=== PATIENT | male | born 1945 | race Caucasian/White ===

== ENCOUNTER 2017-02-26 15:49 | Observation (INO) ==
[2017-02-26] MEDS ORDERED: Ondansetron ODT 4 MG TAB.RAPDIS SL ONE (17:08)
--- NOTE | 2017-02-26 17:39 | Emergency Department Note ---
Disposition Clinical Impression: Generalized weakness Lumbar pain Qualifiers: Chronicity: chronic Back pain laterality: unspecified Sciatica presence: unspecified whether sciatica present Qualified Code(s): M54.5 - Low back pain; G89.29 - Other chronic pain Disposition: Admitted As Inpatient Condition: Good Referrals: Mary Daniels MD [Primary Care Provider] - Forms: ED Satisfaction Letter Time of Disposition: 20:02 Back Pain HPI - General Chief Complaint: ED Back Pain/Injury Stated Complaint: back pain Time Seen by Provider: 02/26/17 15:51 Source: patient, family (Sun), EMS Limitations: no limitations Nursing Notes Reviewed: Yes Vital Signs Reviewed: Yes - History of Present Illness HPI Narrative: 71-year-old obese male with history of chronic back pain presents to the ED via EMS for low back pain. Patient denies any injury or trauma to the area. He was at his primary care physician's office Dr. Daniels today for a regular check up. Around [address] to his family physician's office he began experiencing lower back pain when he sat in the car seat. He lives at home with his and states this may be the first time he left the house in a year. His son lives in [place] and came to pick him up. Patient reports while he was waiting in the waiting room pain intensified. EMS was called and he presents here. States when they placed him supine his pain was less intense. Pain was so severe he reports nausea and an episode of nonbloody emesis. Denies any abdominal pain. Reports a history of a umbilical hernia. Patient denies any saddle anesthesia, leg weakness, bowel or bladder incontinence. He denies any fever, cough, chest pain, shortness of breath or abdominal pain. tie worker Mayra is at bedside evaluating the patient, states she can have him placed in a penitentiary facility by tomorrow and does not require a 3 days hospital admission. On physical exam he has mild tenderness to the lower lumbar region. No signs of pressure ulcer. Lower extremities equal strength and sensation. Will get a CT of the lumbar spine and some basic labs. Patients currently requesting medications for his reflux as well as nausea medication. - Related Data Home Medications Medication Instructions Recorded Confirmed Albuterol Neb [Proventil Neb] 2.5 mg IH TID PRN 02/26/17 02/26/17 Albuterol Sulfate [Ventolin Hfa] 2 puff IH Q4H PRN 02/26/17 02/26/17 Atenolol [Tenormin] 50 mg PO BID 02/26/17 02/26/17 Budesonide Neb [Pulmicort Neb] 0.5 mg IH BID 02/26/17 02/26/17 Clotrimazole 1% CRM [Lotrimin 1%] 1 appl TP BID 02/26/17 02/26/17 Enalapril/Hydrochlorothiazide 1 each PO BID 02/26/17 02/26/17 [Vaseretic 10-25 mg Tablet] Formoterol Fumarate [Perforomist] 20 mcg IH BID 02/26/17 02/26/17 Hydrocortisone 2.5% CREAM [Cortaid] 1 appl TP BID 02/26/17 02/26/17 Metformin HCl [Metformin HCl ER] 1,000 mg PO BID 02/26/17 02/26/17 Simvastatin [Zocor] 40 mg PO HS 02/26/17 02/26/17 Allergies Allergy/AdvReac Type Severity Reaction Status Date / Time No Known Allergies Allergy Verified 01/03/16 14:32 All systems ED: reviewed and negative except as stated. Review of Systems: As Per HPI Constitutional: Denies: fever, chills Cardiovascular: Denies: chest pain Respiratory: Denies: cough, dyspnea Gastrointestinal: Reports: nausea, vomiting. Denies: abdominal pain Genitourinary: Denies: urgency, dysuria Musculoskeletal: Reports: back pain. Denies: neck pain Integumentary: Denies: rash, abrasion Neurological: Denies: headache Past Medical History - Past Medical History Attestation: Yes The following information was validated with the patient. Source: patient Medical history: Reports: asthma, diabetes Psychiatric history: Reports: no psych history - Social History Smoking Status: Former smoker Smokeless Tobacco Status: Yes Alcohol use: Reports: none Drug use: Reports: none Physical Exam - General Limitations: no limitations General appearance: alert, in no apparent distress, obese - Head Head exam: atraumatic - Eye Eye exam: Present: normal appearance - ENT ENT exam: normal exam - Neck Neck exam: Present: normal inspection - Chest Chest inspection: Present: normal inspection, symmetric chest wall rise. Absent : tenderness - Respiratory Respiratory exam: Present: normal lung sounds bilaterally, wheezes. Absent: respiratory distress - Cardiovascular Cardiovascular exam: Present: regular rate, normal rhythm, normal heart sounds - Abdominal Exam Abdominal exam: Present: soft (obese), Non-Tender, normal bowel sounds, hernia ( umbilical, reducible). Absent: tenderness, distention, guarding, rebound, rigidity - Extremities Exam Extremities exam: Present: other (stasis dermatitis to lower extremities) - Back Exam Back exam: Present: normal inspection, paraspinal tenderness, vertebral tenderness (lower lumbar), other (no pressure ulcer) - Neurological Exam Neurological exam: Present: alert, oriented X3 - Expanded Neurological Exam Patient oriented to: Present: person, place, time Motor strength - LUE: 5/5 Motor strength - RUE: 5/5 Motor strength - LLE: 5/5 Motor strength - RLE: 5/5 Course - Reevaluation(s) Reevaluation #1: Patient is currently comfortable. On exam of his back he is not reporting any discomfort. Whenever I ask him to sit up his pain is exacerbated. Laying down seems to be positioned disease. Awaiting imaging of CT lumbar spine. Review of Economic Development Specialist Note ED SW consult per request of nursing. Pt appears alert and oriented with his son bedside. The pt reports that he is no longer able to walk. He states his is also in poor health but she is able to ambulate. The also has a friend who assists her in taking her to doctor appointments. The 's granddaughter, Sadaf, whom the pt and raised, does pitch in and helps with housekeeping chores. Pt's son resides in [place] and also has health issues, currently sitting in a wheel chair due to spina bifida. Pt is aware that he cannot return home this evening, in this condition, with limited support available. Pt states that he is agreeable to a rehab placement to address his need for PT with the goal of returning home as soon as he can safely ambulate. Pt's first choice is [facility] ([facility] facility). Pt's second choice is [facility]. Pt has [employer] insurance so does not require a 3 night stay prior to placement. With pt's permission, SW attempted to contact the yet no answer on the phone. Time: 18:12 Reevaluation #2: Review of his preadmission labs reveals a leukocytosis that appears chronic from the year ago. Patients afebrile. Shows a low sodium level and chloride. Patient was given 1 liter of normal saline. Chest x-ray shows some blunting of the left [place] phrenic angle appears consistent with his prior imaging a year ago. Patient will be a social admission for rehab placement likely by tomorrow. I have attached the note from the social media intern from the ED on [facility]. Patient is agreeable to placement. Impression is back pain and generalized weakness. Time: 20:03 - Consultations Consultation #1: Spoke with on-call hospitalist lanre Dunn to admit for social admission for rehab placement with weakness and low back pain. No further orders at this time Time: 20:03 Vital Signs Temperature 98.6 F 02/26/17 15:50 Pulse Rate 105 02/26/17 15:50 Respiratory Rate 18 02/26/17 15:50 Blood Pressure 100/76 02/26/17 15:50 O2 Sat by Pulse Oximetry 94 02/26/17 15:50 Temperature 98.6 F 02/26/17 15:50 Pulse Rate 76 02/26/17 19:47 Respiratory Rate 14 02/26/17 19:47 Blood Pressure 120/64 02/26/17 19:47 O2 Sat by Pulse Oximetry 95 02/26/17 19:47 Oxygen Delivery Oxygen Delivery Nasal Cannula Back Pain/Injury - Medical Records Medical records reviewed: Yes I reviewed the patient's medical records. - Lab Data Lab results reviewed: Yes I reviewed the patient's lab results. Result diagrams: 02/26/17 18:29 02/26/17 18:29 Lab Results 02/26/17 02/26/17 Range/Units 18:29 18:29 WBC 15.0 H (4.3-11.1) K/mcL RBC 4.82 (4.19-5.50) M/mcL Hgb 13.9 (12.9-16.9) g/dL Hct 42.1 (37.5-50.1) % MCV 87.3 (83.0-100.0) fL MCH 28.8 (28.0-33.3) pg MCHC 33.0 (31.6-35.5) g/dL RDW 13.9 (11.5-14.5) % Plt Count 192 (140-400) K/mcL MPV 8.5 L (9.4-12.4) fL Immature Gran % 0.5 (0-4) % Seg Neutrophils % 86.4 % Lymphocytes % 5.0 % Monocytes % 5.3 % Eosinophils % 2.5 % Basophils % 0.3 % Neutrophils # 13.0 H (1.6-8.9) K/mcL Lymphocytes # 0.8 (0.6-4.6) K/mcL Monocytes # 0.8 (0.0-1.3) K/mcL Eosinophils # 0.4 (0.0-0.6) K/mcL Basophils # 0.1 (0.0-0.2) K/mcL Sodium 130 L (136-145) mEq/L Potassium 3.7 (3.5-4.5) mEq/L Chloride 94 L (98-109) mEq/L Carbon Dioxide 30 H (19-29) mEq/L BUN 10 (8-26) mg/dL Creatinine 1.11 (0.72-1.25) mg/dL Est GFR ( Amer) > 60 (> 60) Est GFR (Non-Af Amer) > 60 (> 60) BUN/Creatinine Ratio 9 (6-26) Glucose 104 H (70-99) mg/dL Calculated Osmolality 269 L (280-300) Calcium 8.8 (8.6-10.8) mg/dL - Radiology Data Radiology results reviewed: Yes I reviewed the patient's radiology results. Lumbar Spine CT 02/26/17 17:07 IMPRESSION: 1. No acute abnormality detected within the lumbar spine. 2. Severe multilevel degenerative disc and facet disease. D/ / Terrance Butt MD / Terrance Butt MD Interpreting Provider: Terrance Butt MD Chest X-Ray 02/26/17 19:15 IMPRESSION: Blunting of the left costophrenic sinus may reflect scarring. Alternatively chronic pleural effusion could have this appearance. Left basilar airspace disease is not excluded given this appearance. D/ / Andrés Carlosn MD / Andrés Carlson MD Interpreting Provider: Andrés Carlson MD
--- NOTE | 2017-02-26 18:49 | Emergency Department Note ---
START Narrative - START START: I examined this patient and my medical decision-making was reviewed with the Resident Physician. I agree with the documented findings, disposition and treatment plan as described except to the extent set forth below. pt admitted for back pain and NH placement tomorrow per social work.
[2017-02-26 18:52] LABS: Basophils # 0.1 K/mcL (0.0-0.2); Basophils % 0.3 %; Eosinophils # 0.4 K/mcL (0.0-0.6); Eosinophils % 2.5 %; Hematocrit 42.1 % (37.5-50.1); Hemoglobin 13.9 g/dL (12.9-16.9); Immature Granulocytes % 0.5 % (0-4); Lymphocytes # 0.8 K/mcL (0.6-4.6); Mean Corpuscular Hemoglobin 28.8 pg (28.0-33.3); Mean Corpuscular Volume 87.3 fL (83.0-100.0); Mean Platelet Volume 8.5 fL (9.4-12.4); Monocytes # 0.8 K/mcL (0.0-1.3); Monocytes % 5.3 %; Platelet Count 192 K/mcL (140-400); Red Blood Count 4.82 M/mcL (4.19-5.50); Red Cell Distribution Width 13.9 % (11.5-14.5); Segmented Neutrophils % 86.4 %
[2017-02-26 19:04] LABS: BUN/Creatinine Ratio 9 (6-26); Blood Urea Nitrogen 10 mg/dL (8-26); Calcium 8.8 mg/dL (8.6-10.8); Carbon Dioxide 30 mEq/L (19-29); Chloride 94 mEq/L (98-109); Glucose 104 mg/dL (70-99); Osmolality,Calculated 269 (280-300); Potassium 3.7 mEq/L (3.5-4.5); Sodium 130 mEq/L (136-145); eGFR For African Americans > 60 (> 60); eGFR For Non-African Americans > 60 (> 60)
[2017-02-26] MEDS ORDERED: 0.9 % Sodium Chloride 1,000 ML IVC ONE (19:11)
[2017-02-26] MEDS ORDERED: Acetaminophen 325 MG TABLET PO PRN (20:46)
[2017-02-26] MEDS ORDERED: Naloxone 0.4 MG/ML INJ IVP PRN (20:46)
[2017-02-26] MEDS ORDERED: Ketorolac 30 MG/ML VIAL IVP PRN (20:46)
[2017-02-26] MEDS ORDERED: Dextrose Gel 15 GM PO PRN ×2 (20:54)
[2017-02-26] MEDS ORDERED: D5% in Water 1,000 ML IVC PRN (20:54)
[2017-02-26] MEDS ORDERED: *HR* Dextrose 50 % in Water (Syg) 50 ML SYRINGE IVP PRN (20:54)
[2017-02-26] MEDS ORDERED: Albuterol 2.5 MG/3 ML NEBULIZER IH PRN (20:58)
[2017-02-26] MEDS ORDERED: [UNRECOGNIZED DRUG - OTHER] PO SCH (21:00)
[2017-02-26] MEDS ORDERED: ENALAPRIL PO SCH (21:00)
[2017-02-26] MEDS ORDERED: HYDROCHLOROTHIAZIDE PO SCH (21:00)
--- NOTE | 2017-02-26 21:06 | Internal Med History&Physical ---
<Kenn Heard - Last Filed: 02/26/17 21:00> Date of Encounter: 02/26/17 Time of Encounter: 21:00 Assessment and Plan (1) Generalized weakness Current visit: Yes Status: Acute Presents from primary care office today with worsening generalized weakness. Patient reports he has not been out of his house in almost a year. Admits to functional decline. Cell social insurance adviser in the ED and agreed to be admitted to rehabilitation. It appears that his functional decline and generalized weakness associated with chronic lower back pain. PT/OT consulted for further evaluation. Patient reports that his primarily in bed, only transports to his bedside commode, or to his recliner, or back to bed. (2) Lumbar pain Current visit: Yes Status: Acute History of chronic lumbar pain secondary to spinal stenosis and degenerative disc disease, CT performed in the ED and redemonstrated stenosis and DDD, was seen by his primary care provider today because he has not been seen within the last year. During the office visit back pain increased and was intolerable. Came to ED for further workup. Tylenol and Toradol for pain PT/OT consult to assess limits and functional decline Qualifiers: Chronicity: chronic Back pain laterality: unspecified Sciatica presence: unspecified whether sciatica present Qualified Code(s): M54.5 - Low back pain ; G89.29 - Other chronic pain (3) HTN (hypertension) Current visit: Yes Status: Acute History of hypertension, controlled as of this visit. Continue to monitor blood pressure. And resume home BB and enalapril/chlorothiazide will titrate medications as needed Qualifiers: Hypertension type: essential hypertension Qualified Code(s): I10 - Essential (primary) hypertension (4) Diabetes mellitus Current visit: Yes Status: Acute History of diabetes mellitus which she is taking metformin. Hemoglobin A1c is 5.2 as of today. We will DC metformin during her hospital course and start the patient on SSI, 3 times a day and at night. Qualifiers: Diabetes mellitus type: type 2 Diabetes mellitus complication status: with unspecified complications Diabetes mellitus watermelon inspector insulin use: without skilled nursing use Qualified Code(s): E11.8 - Type 2 diabetes mellitus with unspecified complications (5) Fungal rash of torso Current visit: Yes Status: Acute Fungal rash on torso. Patient reports that he has had this rash for quite some time. Has been taking Lotrimin and 2.5 percent hydrocortisone cream. We will stop the hydrocortisone cream at this time but continue the Lotrimin. Consider oral antifungals (6) COPD (chronic obstructive pulmonary disease) Current visit: Yes Status: Acute Acute exacerbation of COPD. The patient is currently stable and on room air, however, there is pronounced wheezing throughout anterior and posterior. Place patient on albuterol nebulizer and Symbicort as well as scheduled albuterol. Continue to monitor respiratory status and assess for improvement or further decline. Oxygen ordered when necessary to maintain SPO2 greater than 90% Qualifiers: COPD type: COPD with acute exacerbation Qualified Code(s): J44.1 - Chronic obstructive pulmonary disease with (acute) exacerbation (7) Asthma Current visit: Yes Status: Chronic History of asthma, and does not appear well-controlled. Continue scheduled albuterol, starting to ID DuoNeb's and Symbicort and continue monitor respiratory status and adjust medications as needed Qualifiers: Asthma severity: moderate persistent Asthma complication type: uncomplicated Qualified Code(s): J45.40 - Moderate persistent asthma, uncomplicated (8) DVT prophylaxis Current visit: Yes Status: Acute History of functional decline throughout the last year, severe limitations to activity patient is primarily sedentary. We will order [facility] Internal Medicine - H&P: HPI Chief complaint: Back pain, worsening functional decline, functional paraplegia Admitted From: Home Plans for Post Hospital Care: Transfer Inp Rehab Fac History of present illness: Mr. Masterson is a 71 year old male with a past medical history of diabetes, asthma , hypertension, COPD, sleep apnea. He presents to [facility] on 02-26-17 from his primary care office with increased back pain. Additionally, should be noted the patient is suffering from functional decline occurring over the last year. All information is obtained from chart review and patient history. Upon review patient admitted to further functional decline over the last year. States that he went to his primary care provider because she would not renew his prescriptions without an appointment since had not been seen in over a year. During the visit the patient experienced an increase in back pain and needed to lie down. He had provider: Ambulance to transport him to [facility] for further workup. CT of the spine obtained in the ED showed spinal stenosis and degenerative joint disease. BMP was unremarkable. CBC resulted WBCs of 15. No known source of infection identified. Upon exam the patient was identified as having functional paraplegia, additionally, he was found to have a fungal confluent rash throughout his trunk. For this he is taking hydrocortisone 2-1/2 % and Lotrimin cream. Bilateral lower extremities are both edematous, calves were dry and flaky. He is being admitted to [facility] further workup and evaluation. PT/OT to see, patient to go to rehabilitation. Planning to order a wound consult for bilateral lower extremities. Past Med Surg Social Fam HX - Past Medical History Medical history: asthma, diabetes Psychiatric history: no psych history - Social History Smoking Status: Former smoker Smokeless Tobacco Status: Yes Alcohol use: none Drug use: none - Family History Father Race: Family Member Ethnicity: Non- Living Status: Age at : 66 Cause of : unknown Hx Family Cardiac Disorders: Yes Hx Family Endocrine Disorder: Yes Hx Family Neurologic Disorders: Yes Internal Medicine - H&P: Meds Albuterol Neb [Proventil Neb] 2.5 mg IH TID PRN 02/26/17 [History] Albuterol Sulfate [Ventolin Hfa] 2 puff IH Q4H PRN 02/26/17 [History] Atenolol [Tenormin] 50 mg PO BID 02/26/17 [History] Budesonide Neb [Pulmicort Neb] 0.5 mg IH BID 02/26/17 [History] Clotrimazole 1% CRM [Lotrimin 1%] 1 appl TP BID 02/26/17 [History] Enalapril/Hydrochlorothiazide [Vaseretic 10-25 mg Tablet] 1 each PO BID [History] Formoterol Fumarate [Perforomist] 20 mcg IH BID 02/26/17 [History] Hydrocortisone 2.5% CREAM [Cortaid] 1 appl TP BID 02/26/17 [History] Metformin HCl [Metformin HCl ER] 1,000 mg PO BID 02/26/17 [History] Simvastatin [Zocor] 40 mg PO HS 02/26/17 [History] Allergies No Known Allergies Allergy (Verified 01/03/16 14:32) All Systems PM: A 10-system review of systems was performed and is negative for pertinent findings except as documented above in the HPI. - Constitutional Constitutional: fatigue, weakness, no chills, no fever(s), no night sweats - EENT Eyes: no change in vision, no discharge, no pain, no photophobia Ears: no ear discharge, no ear pain, no tinnitus Nose, mouth and throat: no dysphagia, no nasal discharge, no neck pain, no sore throat - Cardiovascular Cardiovascular ROS IM: dyspnea on exertion, edema, no chest pain, no diaphoresis , no dyspnea, no irregular heart rhythm, no lightheadedness, no palpitations, no syncope - Respiratory Respiratory: dyspnea, dyspnea on exertion, wheezing, no cough, no excessive phlegm production - Gastrointestinal Gastrointestinal: no abdominal pain, no diarrhea, no hematemesis, no hematochezia, no melena, no nausea, no vomiting - Musculoskeletal Musculoskeletal ROS IM: back pain, muscle weakness, no joint swelling, no numbness, no tingling - Integumentary Integumentary IM: rash, no unusual bruising Additional comments: Fluid fungal rash throughout the trunk - Neurological Neurological ROS: radicular pain, no confusion, no convulsions, no focal weakness, no numbness, no tingling, no tremor(s) - Hematologic/Lymphatic Hematologic/Lymphatic: no easy bruising - Constitutional Vitals: Temp Pulse Resp BP Pulse Ox 98.6 F 76 14 129/62 95 02/26/17 15:50 02/26/17 19:47 02/26/17 20:33 02/26/17 20:33 02/26/17 19:47 General appearance: Present: cooperative, A&O X 3, morbidly obese, no acute distress - Head Head exam: Present: atraumatic, normocephalic - Eye Eye exam: Present: PERRL, conjuntiva pink, sclera anicteric Pupils: Present: PERRL - Neck Neck exam general surgery: Present: supple, trachea midline. Absent: lymphadenopathy - Respiratory Respiratory exam: Present: wheezes. Absent: accessory muscle use, rales, rhonchi Additional comments: Expiratory wheezes throughout anterior and posterior - Cardiovascular Cardiovascular exam: Present: RRR, +S1, +S2. Absent: diastolic murmur, gallop, rubs, systolic murmur - GI/Abdominal GI/Abdominal exam: Present: hernia, normal bowel sounds, soft, no peritoneal signs. Absent: distended, tenderness Additional comments: Umbilical hernia noted. No tenderness to palpation - Extremities Exam Extremities exam: Present: normal capillary refill, radial pulses palpable and symmetrical. Absent: calf tenderness, cyanotic, joint swelling, pedal edema, tenderness, warm - Expanded Lower Extremities Exam Lower Leg exam: Present: erythema (dry, scaley appearance), swelling. Absent: tenderness - Neurological Exam Neurological exam: Present: CN II-XII intact, oriented X3, no focal deficits. Absent: pronater drift, facial droop, speech deficit - Skin Skin exam: Present: dry, erythema, intact, rash Additional comments: Fungal rash noted throughout the trunk. Bilateral lower extremities edematous and erythematous with dry flaking scale. Moisture noted between his toes on bilateral feet Internal Med - H&P Results - Labs CBC & Chem 7: 02/26/17 18:29 02/26/17 18:29 <Paul Ortega - Last Filed: 02/26/17 22:26> Date of Encounter: 02/26/17 Internal Medicine - H&P: HPI History of present illness: Mr. Masterson is a 71 year old male All Systems PM: A 10-system review of systems was performed and is negative for pertinent findings except as documented above in the HPI. - Constitutional Vitals: Temp Pulse Resp BP Pulse Ox 98.4 F 69 15 115/68 96 02/26/17 21:55 02/26/17 21:55 02/26/17 21:55 02/26/17 21:55 02/26/17 21:55 Internal Med - H&P Results - Labs CBC & Chem 7: 02/26/17 18:29 02/26/17 18:29 - Attending Attestation I examined this patient and my medical decision-making was reviewed with the Resident Physician. I agree with the documented findings, disposition and treatment plan as described except to the extent set forth below. Richmond Masterson 71-year-old gentleman who presents with worsening acute back pain since today. Has a history of atraumatic neck pain likely from obesity and osteoarthritis spinal stenosis, DJD who has been often bedbound with decreased functional status. At baseline he uses a cane occasionally an electric wheelchair. Described low back pain and worse when sitting up or standing relieved by lying down or being recumbent in bed. Pain improved with IV pain medicine. CT of the lumbar spine in the ER demonstrated severe multilevel DJD without any acute changes identified. ROS 14 point review of systems reviewed as best as possible given presentation. Pertinent positive or negative as per HPI or otherwise reviewed as negative General - AAO x 3. Obesity Psych - Appropriate affect/speech. No agitation Eyes - JEFFRY. Eye lids intact. No scleral icterus ENT - Oral mucosa pink, dentition intact. External ear clear/dry/intact. No thyromegaly Lymphatics - No cervical/inguinal lympadenopathy Neuro - No gross peripheral neuro deficits no paresthesias in her, bilateral lower extremity power 4 out of 5. Described lower back pain. Heart - Sinus. RRR. S1 and S2 present. No added HS/murmurs appreciated. No elevated JVD appreciated. No calf swellings/erythema Lung - Adequate air entry b/l, No crackes/wheezes appreciated GI - Soft, non-tender. No hepatosplenomegaly/ascities. BS+ - No CVA/suprapubic tenderness or palpable bladder distension Skin -fungal skin rash over her torso. Dry skin excoriation chronic bilateral lower extremity MSK - Joints with normal ROM. No joint swellings #1: Functional paraplegia, unable to self-care -PT evaluation, consult case management for placement #2: Acute on chronic back pain #3: Severe lumbar spinal osteoarthritis - IV morphine for severe pain #4: Fungal skin infection - Local wound care, local nystatin therapy - Hygiene care #5: Leukocytosis - Doubt acute infection given no localizing signs and negative spinal imaging - Review of records indicate high white count noted since Dec 2015 Chronic medical issues - Hypertension - Diabetes type 2
[2017-02-26 21:28] LABS: Hemoglobin A1C 5.2 %
[2017-02-26] MEDS ORDERED: *HR* Morphine 2 MG/ML SYRINGE IVP PRN (22:12)
[2017-02-26] MEDS: Ipratropium/Albuterol Neb 3 ML IH SCH (22:38)
[2017-02-26] MEDS: Budesonide/Formoterol 160/4.5 MDI IH SCH ×2 (22:38)
[2017-02-26] MEDS: Insulin LISPRO 300 UNITS/3 ML VIAL SQ SCH (22:42)
[2017-02-26] MEDS: hydroCHLOROthiazide 25 MG TABLET PO SCH (23:14)
[2017-02-26] MEDS: Clotrimazole 1% CRM 15 GM TUBE TP SCH (23:15)
[2017-02-27] MEDS: Ipratropium/Albuterol Neb 3 ML IH SCH ×2 (04:36→10:39)
[2017-02-27 04:50] LABS: Basophils % 0.4 %; Eosinophils # 0.6 K/mcL (0.0-0.6); Eosinophils % 6.7 %; Hematocrit 43.2 % (37.5-50.1); Hemoglobin 13.7 g/dL (12.9-16.9); Immature Granulocytes % 0.3 % (0-4); Lymphocytes # 1.1 K/mcL (0.6-4.6); Lymphocytes % 11.2 %; Mean Corpuscular HGB Conc 31.7 g/dL (31.6-35.5); Mean Corpuscular Hemoglobin 28.2 pg (28.0-33.3); Mean Corpuscular Volume 88.9 fL (83.0-100.0); Mean Platelet Volume 8.1 fL (9.4-12.4); Monocytes # 0.7 K/mcL (0.0-1.3); Monocytes % 7.1 %; Neutrophils # 7.1 K/mcL (1.6-8.9); Platelet Count 191 K/mcL (140-400); Red Blood Count 4.86 M/mcL (4.19-5.50); Red Cell Distribution Width 13.8 % (11.5-14.5); Segmented Neutrophils % 74.3 %
[2017-02-27 05:04] LABS: BUN/Creatinine Ratio 13 (6-26); Blood Urea Nitrogen 11 mg/dL (8-26); Calcium 8.4 mg/dL (8.6-10.8); Carbon Dioxide 32 mEq/L (19-29); Chloride 96 mEq/L (98-109); Glucose 100 mg/dL (70-99); Osmolality,Calculated 281 (280-300); Potassium 3.7 mEq/L (3.5-4.5); Sodium 136 mEq/L (136-145); eGFR For African Americans > 60 (> 60); eGFR For Non-African Americans > 60 (> 60)
[2017-02-27] MEDS: *HR* Enoxaparin 40 MG/0.4 ML SYRINGE SQ SCH (05:38)
[2017-02-27] MEDS: Insulin LISPRO 300 UNITS/3 ML VIAL SQ SCH ×4 (09:47→22:39)
[2017-02-27] MEDS: Clotrimazole 1% CRM 15 GM TUBE TP SCH ×2 (09:51→22:38)
[2017-02-27] MEDS: hydroCHLOROthiazide 25 MG TABLET PO SCH ×2 (09:58→22:37)
[2017-02-27] MEDS: Budesonide/Formoterol 160/4.5 MDI IH SCH ×2 (10:39→20:52)
--- NOTE | 2017-02-27 13:51 | Internal Med Progress Note ---
<Arthur Nolasco - Last Filed: 02/27/17 13:48> Date of Encounter: 02/27/17 Time of Encounter: 13:48 - Assessment and plan (1) Degenerative disc disease Current Visit: Yes Status: Acute Assessment and plan: Patient has chronic back pain that has gradually decreased his mobility over the last year. He has significant pain when sitting up. CT scan shows severe degenerative disc disease and facet arthropathy. Patient feels like he is unsafe to go home. Will be evaluated PT/OT and social media developer has been consulted for possible placement. IV Toradol and morphine when necessary for pain have been ordered but the patient has not needed any since arrival.. Qualifiers: Spinal region: lumbar Qualified Code(s): M51.36 - Other intervertebral disc degeneration, lumbar region (2) HTN (hypertension) Current Visit: Yes Status: Acute Assessment and plan: Blood pressures been under good control. Continue current regimen. Qualifiers: Hypertension type: essential hypertension Qualified Code(s): I10 - Essential (primary) hypertension (3) Diabetes mellitus Current Visit: Yes Status: Acute Assessment and plan: Blood sugars have been under good control. Continue sliding scale insulin as needed. Qualifiers: Diabetes mellitus type: type 2 Diabetes mellitus complication status: with unspecified complications Diabetes mellitus intermediate project manager insulin use: without senior living use Qualified Code(s): E11.8 - Type 2 diabetes mellitus with unspecified complications (4) COPD (chronic obstructive pulmonary disease) Current Visit: Yes Status: Acute Assessment and plan: Stable. No evidence of exacerbation. Continue Symbicort and when necessary duo nebs. Qualifiers: COPD type: COPD with acute exacerbation Qualified Code(s): J44.1 - Chronic obstructive pulmonary disease with (acute) exacerbation - Subjective Interval history: Patient seen and examined at bedside. Patient states that he feels okay this morning. He states that while lying flat he has minimal back pain but his pain is increased when sitting up. Once he has no complaints. He denies chest pain , shortness of breath, abdominal pain, nausea, vomiting. - Constitutional Vitals: Temp Pulse Resp BP Pulse Ox 98.0 F 72 16 101/54 99 02/27/17 11:32 02/27/17 11:32 02/27/17 11:32 02/27/17 11:32 02/27/17 11:32 General appearance: Present: cooperative, A&O X 3, morbidly obese, no acute distress - Respiratory Respiratory exam: Present: CTAB. Absent: rales, rhonchi, wheezes - Cardiovascular Cardiovascular exam: Present: RRR. Absent: gallop, rubs, systolic murmur - GI/Abdominal GI/Abdominal exam: Present: normal bowel sounds, soft. Absent: distended, tenderness - Extremities Exam Extremities exam: Present: warm. Absent: pedal edema, tenderness - Neurological Exam Neurological exam: Present: alert, CN II-XII intact, oriented X3, no focal deficits Internal Medicine: Result - Labs CBC & Chem 7: 02/27/17 04:26 02/27/17 04:26 Labs: Short CBC 02/27/17 Range/Units 04:26 WBC 9.6 (4.3-11.1) K/mcL Hgb 13.7 (12.9-16.9) g/dL Hct 43.2 (37.5-50.1) % Plt Count 191 (140-400) K/mcL Neutrophils # 7.1 (1.6-8.9) K/mcL BMP 02/27/17 04:26 Sodium 136 Potassium 3.7 Chloride 96 L Carbon Dioxide 32 H BUN 11 Creatinine 0.86 Glucose 100 H Calcium 8.4 L Consult Discharge Plan - Plan Referrals: Mary Daniels MD [Primary Care Provider] - 03/04/17 11:00 am <Raul Doherty - Last Filed: 02/27/17 17:51> Date of Encounter: 02/27/17 - Assessment and plan (1) COPD (chronic obstructive pulmonary disease) Current Visit: Yes Status: Acute Qualifiers: COPD type: COPD with acute exacerbation Qualified Code(s): J44.1 - Chronic obstructive pulmonary disease with (acute) exacerbation (2) Asthma Current Visit: Yes Status: Chronic Qualifiers: Asthma severity: moderate persistent Asthma complication type: uncomplicated Qualified Code(s): J45.40 - Moderate persistent asthma, uncomplicated (3) Lumbar pain Current Visit: Yes Status: Acute Qualifiers: Chronicity: chronic Back pain laterality: unspecified Sciatica presence: unspecified whether sciatica present Qualified Code(s): M54.5 - Low back pain ; G89.29 - Other chronic pain (4) Generalized weakness Current Visit: Yes Status: Acute (5) Degenerative disc disease Current Visit: Yes Status: Acute Qualifiers: Spinal region: lumbar Qualified Code(s): M51.36 - Other intervertebral disc degeneration, lumbar region (6) Fungal rash of torso Current Visit: Yes Status: Acute (7) Diabetes mellitus Current Visit: Yes Status: Acute Qualifiers: Diabetes mellitus type: type 2 Diabetes mellitus complication status: with skin complications Diabetes mellitus complication detail: with other skin complication Diabetes mellitus senior living insulin use: without senior living use Qualified Code(s): E11.628 - Type 2 diabetes mellitus with other skin complications (8) HTN (hypertension) Current Visit: Yes Status: Acute Qualifiers: Hypertension type: essential hypertension Qualified Code(s): I10 - Essential (primary) hypertension - Constitutional Vitals: Temp Pulse Resp BP Pulse Ox 98.0 F 62 16 114/69 96 02/27/17 16:35 02/27/17 16:35 02/27/17 16:35 02/27/17 16:35 02/27/17 16:35 Internal Medicine: Result - Labs CBC & Chem 7: 02/27/17 04:26 02/27/17 04:26 Labs: Short CBC 02/27/17 Range/Units 04:26 WBC 9.6 (4.3-11.1) K/mcL Hgb 13.7 (12.9-16.9) g/dL Hct 43.2 (37.5-50.1) % Plt Count 191 (140-400) K/mcL Neutrophils # 7.1 (1.6-8.9) K/mcL BMP 02/27/17 04:26 Sodium 136 Potassium 3.7 Chloride 96 L Carbon Dioxide 32 H BUN 11 Creatinine 0.86 Glucose 100 H Calcium 8.4 L - Attending Attestation I examined this patient and my medical decision-making was reviewed with the Resident Physician on 02/27/17. I agree with the documented findings, disposition and treatment plan as described except to the extent set forth below. Mr. Masterson is currently in observation for persistent back pain and fungal rash. He is moderate to high risk due to potential for worsening pain and neuro complications. Mr Masterson is resting in bed. He denies new issues. No fever or chills. Wanting coffee. Son is visiting at this time and has questions about placement in ECF. Exam alert. Comfortable Mucus membranes dry Heart reg No wheeze currently Abd soft. Rash unchanged. I/P 1. Acute on chronic low back pain 2. Degenerative disc disease 3. fungal rash Further diagnoses and plan as above.
[2017-02-27 18:08] LABS: Bilirubin,Urine Small (Negative); Blood,Urine Trace (Negative); Clarity,Urine Turbid (Clear); Color,Urine Dark Yellow (Yellow); Glucose,Urine (UA) Normal (Normal); Ketones,Urine Negative (Negative); Leukocyte Esterase,Urine Large (Negative); Nitrite,Urine Negative (Negative); Protein,Urine Trace mg/dL (Neg-Trace); Urobilinogen,Urine Normal (Normal)
[2017-02-27 18:10] LABS: Bacteria,Urine Many per hpf (None-Few); Hyaline Casts,Urine None Seen per lpf (None-Few); RBC,Urine 0-3 per hpf (0-3); Squamous Epithelial Cell,Urine Few per lpf (None-Few); WBC,Urine TNTC per hpf (0-3)
[2017-02-27] MEDS: Ipratropium/Albuterol Neb 3 ML IH PRN (20:52)
[2017-02-28] MEDS: *HR* Enoxaparin 40 MG/0.4 ML SYRINGE SQ SCH (06:07)
[2017-02-28 07:42] LABS: BUN/Creatinine Ratio 16 (6-26); Blood Urea Nitrogen 11 mg/dL (8-26); Calcium 8.4 mg/dL (8.6-10.8); Carbon Dioxide 32 mEq/L (19-29); Chloride 96 mEq/L (98-109); Glucose 103 mg/dL (70-99); Osmolality,Calculated 280 (280-300); Potassium 3.2 mEq/L (3.5-4.5); Sodium 135 mEq/L (136-145); eGFR For African Americans > 60 (> 60); eGFR For Non-African Americans > 60 (> 60)
[2017-02-28 08:04] LABS: Basophils # 0.1 K/mcL (0.0-0.2); Basophils % 0.7 %; Eosinophils # 1.2 K/mcL (0.0-0.6); Eosinophils % 16.9 %; Hematocrit 38.4 % (37.5-50.1); Hemoglobin 12.5 g/dL (12.9-16.9); Immature Granulocytes % 0.4 % (0-4); Lymphocytes # 1.1 K/mcL (0.6-4.6); Mean Corpuscular HGB Conc 32.6 g/dL (31.6-35.5); Mean Corpuscular Hemoglobin 28.5 pg (28.0-33.3); Mean Corpuscular Volume 87.5 fL (83.0-100.0); Mean Platelet Volume 8.3 fL (9.4-12.4); Monocytes # 0.6 K/mcL (0.0-1.3); Monocytes % 7.9 %; Neutrophils # 4.4 K/mcL (1.6-8.9); Platelet Count 175 K/mcL (140-400); Red Blood Count 4.39 M/mcL (4.19-5.50); Red Cell Distribution Width 13.5 % (11.5-14.5); Segmented Neutrophils % 59.1 %
[2017-02-28] MEDS: Ipratropium/Albuterol Neb 3 ML IH PRN (08:20)
[2017-02-28] MEDS: Budesonide/Formoterol 160/4.5 MDI IH SCH ×3 (08:20→20:52)
[2017-02-28] MEDS ORDERED: Methocarbamol 750 MG TABLET PO PRN (08:55)
[2017-02-28] MEDS: predniSONE 20 MG TABLET PO SCH (09:59)
[2017-02-28] MEDS: hydroCHLOROthiazide 25 MG TABLET PO SCH ×2 (09:59→22:55)
[2017-02-28] MEDS: Insulin LISPRO 300 UNITS/3 ML VIAL SQ SCH ×4 (10:00→22:54)
[2017-02-28] MEDS: Clotrimazole 1% CRM 15 GM TUBE TP SCH ×2 (10:01→22:55)
--- NOTE | 2017-02-28 13:12 | Internal Med Progress Note ---
<Arthur Nolasco - Last Filed: 02/28/17 13:09> Date of Encounter: 02/28/17 Time of Encounter: 13:09 - Assessment and plan (1) Degenerative disc disease Current Visit: Yes Status: Acute Assessment and plan: Patient has chronic back pain that has gradually decreased his mobility over the last year. He has significant pain when sitting up. CT scan shows severe degenerative disc disease and facet arthropathy. Patient feels like he is unsafe to go home. Will be evaluated PT/OT and social insurance specialist has been consulted for possible placement. IV Toradol and morphine when necessary for pain have been ordered but the patient has not needed any since arrival. Qualifiers: Spinal region: lumbar Qualified Code(s): M51.36 - Other intervertebral disc degeneration, lumbar region (2) COPD (chronic obstructive pulmonary disease) Current Visit: Yes Status: Acute Assessment and plan: Stable. No evidence of exacerbation however the patient does have occasional shortness of breath and cough. He does have wheezes on exam. Given this we will give him a short course of prednisone 40 mg by mouth daily for 5 days which should help with his respiratory status and may also help with his lower back pain as discussed above. Continue Symbicort and scheduled breathing treatments. Qualifiers: COPD type: COPD with acute exacerbation Qualified Code(s): J44.1 - Chronic obstructive pulmonary disease with (acute) exacerbation (3) HTN (hypertension) Current Visit: Yes Status: Acute Assessment and plan: Blood pressures been under good control. Continue current regimen. Qualifiers: Hypertension type: essential hypertension Qualified Code(s): I10 - Essential (primary) hypertension (4) Diabetes mellitus Current Visit: Yes Status: Acute Assessment and plan: Blood sugars have been under good control. Continue sliding scale insulin as needed. Qualifiers: Diabetes mellitus type: type 2 Diabetes mellitus complication status: with skin complications Diabetes mellitus complication detail: with other skin complication Diabetes mellitus intermission coordinator insulin use: without intermission coordinator use Qualified Code(s): E11.628 - Type 2 diabetes mellitus with other skin complications - Subjective Interval history: Patient seen and examined at bedside. Patient states that he feels okay this morning. He states that while lying flat he has minimal back pain but his pain is increased when sitting up, however if he sits's hospital bed up slowly the pain is not that bad. He does report mild shortness of breath and cough that are at his baseline at home. - Constitutional Vitals: Temp Pulse Resp BP Pulse Ox 98.0 F 64 16 132/84 97 02/28/17 11:36 02/28/17 11:36 02/28/17 11:36 02/28/17 11:36 02/28/17 11:36 General appearance: Present: cooperative, A&O X 3, morbidly obese, no acute distress - Respiratory Respiratory exam: Present: wheezes (Scattered, mild). Absent: rales, rhonchi - Cardiovascular Cardiovascular exam: Present: RRR. Absent: gallop, rubs, systolic murmur - GI/Abdominal GI/Abdominal exam: Present: normal bowel sounds, soft. Absent: distended, tenderness - Neurological Exam Neurological exam: Present: alert, CN II-XII intact, oriented X3, no focal deficits Internal Medicine: Result - Labs CBC & Chem 7: 02/28/17 07:15 02/28/17 07:15 Labs: Short CBC 02/28/17 Range/Units 07:15 WBC 7.4 (4.3-11.1) K/mcL Hgb 12.5 L (12.9-16.9) g/dL Hct 38.4 (37.5-50.1) % Plt Count 175 (140-400) K/mcL Neutrophils # 4.4 (1.6-8.9) K/mcL BMP 02/28/17 07:15 Sodium 135 L Potassium 3.2 L Chloride 96 L Carbon Dioxide 32 H BUN 11 Creatinine 0.68 L Glucose 103 H Calcium 8.4 L Urine 02/27/17 Range/Units 17:56 Urine Color Dark Yellow (Yellow) Urine Clarity Turbid A (Clear) Urine pH 6.0 (5.0-8.0) pH Units Ur Specific [place] 1.020 (1.010-1.025) Urine Protein Trace (Neg-Trace) mg/dL Urine Glucose (UA) Normal (Normal) mg/dL - Impressions Impressions Chest X-Ray 02/27/17 16:22 IMPRESSION: Left-sided pleural effusion of unclear etiology is stable. Left basilar airspace disease persists and could be related to pneumonia. Clinical correlation and continued radiographic follow-up recommended. D/ / Topher Lyons MD / Topher Lyons MD Interpreting Provider: Topher Lyons MD Consult Discharge Plan - Plan Referrals: Mary Daniels MD [Primary Care Provider] - 03/04/17 11:00 am <Raul Doherty - Last Filed: 02/28/17 18:28> Date of Encounter: 02/28/17 - Assessment and plan (1) COPD (chronic obstructive pulmonary disease) Current Visit: Yes Status: Acute Qualifiers: COPD type: COPD with acute exacerbation Qualified Code(s): J44.1 - Chronic obstructive pulmonary disease with (acute) exacerbation (2) Asthma Current Visit: Yes Status: Chronic Qualifiers: Asthma severity: moderate persistent Asthma complication type: uncomplicated Qualified Code(s): J45.40 - Moderate persistent asthma, uncomplicated (3) Lumbar pain Current Visit: Yes Status: Acute Qualifiers: Chronicity: chronic Back pain laterality: unspecified Sciatica presence: unspecified whether sciatica present Qualified Code(s): M54.5 - Low back pain ; G89.29 - Other chronic pain (4) Generalized weakness Current Visit: Yes Status: Acute (5) Degenerative disc disease Current Visit: Yes Status: Acute Qualifiers: Spinal region: lumbar Qualified Code(s): M51.36 - Other intervertebral disc degeneration, lumbar region (6) Fungal rash of torso Current Visit: Yes Status: Acute (7) Diabetes mellitus Current Visit: Yes Status: Acute Qualifiers: Diabetes mellitus type: type 2 Diabetes mellitus complication status: with skin complications Diabetes mellitus complication detail: with other skin complication Diabetes mellitus intermission coordinator insulin use: without intermission coordinator use Qualified Code(s): E11.628 - Type 2 diabetes mellitus with other skin complications (8) HTN (hypertension) Current Visit: Yes Status: Acute Qualifiers: Hypertension type: essential hypertension Qualified Code(s): I10 - Essential (primary) hypertension - Constitutional Vitals: Temp Pulse Resp BP Pulse Ox 98.0 F 68 16 164/83 97 02/28/17 16:06 02/28/17 16:06 02/28/17 16:50 02/28/17 16:06 02/28/17 16:50 Internal Medicine: Result - Labs CBC & Chem 7: 02/28/17 07:15 02/28/17 07:15 Labs: Short CBC 02/28/17 Range/Units 07:15 WBC 7.4 (4.3-11.1) K/mcL Hgb 12.5 L (12.9-16.9) g/dL Hct 38.4 (37.5-50.1) % Plt Count 175 (140-400) K/mcL Neutrophils # 4.4 (1.6-8.9) K/mcL BMP 02/28/17 07:15 Sodium 135 L Potassium 3.2 L Chloride 96 L Carbon Dioxide 32 H BUN 11 Creatinine 0.68 L Glucose 103 H Calcium 8.4 L - Impressions Impressions Chest X-Ray 02/27/17 16:22 IMPRESSION: Left-sided pleural effusion of unclear etiology is stable. Left basilar airspace disease persists and could be related to pneumonia. Clinical correlation and continued radiographic follow-up recommended. D/ / Topher Lyons MD / Topher Lyons MD Interpreting Provider: Topher Lyons MD - Attending Attestation I examined this patient and my medical decision-making was reviewed with the Resident Physician on 02/28/17. I agree with the documented findings, disposition and treatment plan as described except to the extent set forth below. Mr. Masterson is currently admitted for exac COPD and intractable back pain. He remains moderate to high risk due to IV medications and risk for worsening respiratory status. Mr. Masterson feels OK. No fever or chills. Has pain when moving in bed. No GI issues. Awaiting placement. Exam Alert. Comfortable Heart reg Lungs with scant end exp wheeze Abd soft I/P 1. Exac COPD 2. Intractable back pain Further diagnoses and plan as above.
[2017-02-28] MEDS: Ipratropium/Albuterol Neb 3 ML IH SCH ×4 (16:18→23:19)
[2017-03-01] MEDS: Ipratropium/Albuterol Neb 3 ML IH SCH ×5 (03:55→20:34)
[2017-03-01] MEDS: *HR* Enoxaparin 40 MG/0.4 ML SYRINGE SQ SCH (06:17)
[2017-03-01] MEDS: Budesonide/Formoterol 160/4.5 MDI IH SCH ×3 (07:56→20:59)
[2017-03-01] MEDS: Insulin LISPRO 300 UNITS/3 ML VIAL SQ SCH ×4 (09:50→20:43)
[2017-03-01] MEDS: predniSONE 20 MG TABLET PO SCH (09:51)
[2017-03-01] MEDS: hydroCHLOROthiazide 25 MG TABLET PO SCH ×2 (09:51→20:44)
[2017-03-01] MEDS: Clotrimazole 1% CRM 15 GM TUBE TP SCH ×2 (09:52→20:45)
--- NOTE | 2017-03-01 18:16 | Internal Med Progress Note ---
Date of Encounter: 03/01/17 Time of Encounter: 11:00 - Assessment and plan (1) Hypokalemia Current Visit: Yes Status: Acute Assessment and plan: Replace today. (2) COPD (chronic obstructive pulmonary disease) Current Visit: Yes Status: Acute Assessment and plan: Overall doing OK. Will continue current course of therapy. Prednisone, aerosols, etc. Qualifiers: COPD type: COPD with acute exacerbation Qualified Code(s): J44.1 - Chronic obstructive pulmonary disease with (acute) exacerbation (3) Asthma Current Visit: Yes Status: Chronic Assessment and plan: Continue current meds. Qualifiers: Asthma severity: moderate persistent Asthma complication type: uncomplicated Qualified Code(s): J45.40 - Moderate persistent asthma, uncomplicated (4) Lumbar pain Current Visit: Yes Status: Acute Assessment and plan: Continue pain control and therapy. SNF on Friday. Qualifiers: Chronicity: chronic Back pain laterality: unspecified Sciatica presence: unspecified whether sciatica present Qualified Code(s): M54.5 - Low back pain ; G89.29 - Other chronic pain (5) Degenerative disc disease Current Visit: Yes Status: Acute Assessment and plan: Continue pain control and therapy. Plan for SNF on Friday. Qualifiers: Spinal region: lumbar Qualified Code(s): M51.36 - Other intervertebral disc degeneration, lumbar region (6) Fungal rash of torso Current Visit: Yes Status: Acute Assessment and plan: Continue topical cream (7) Diabetes mellitus Current Visit: Yes Status: Acute Assessment and plan: Blood sugars have been under good control. Continue sliding scale insulin as needed. Qualifiers: Diabetes mellitus type: type 2 Diabetes mellitus complication status: with skin complications Diabetes mellitus complication detail: with other skin complication Diabetes mellitus chcf insulin use: without chcf use Qualified Code(s): E11.628 - Type 2 diabetes mellitus with other skin complications (8) HTN (hypertension) Current Visit: Yes Status: Acute Assessment and plan: Blood pressures been under good control. Continue current regimen. Qualifiers: Hypertension type: essential hypertension Qualified Code(s): I10 - Essential (primary) hypertension - Subjective Interval history: Mr. Masterson is currently admitted for weakness, back pain and fungal rash. He is awaiting placement. He remains moderate risks due to pain meds and clinical status. Mr Masterson feels OK. His back hurts in the bed. No fever or chills. No GI issues. Eating OK. Sleeping OK. Awaiting placement Friday. - Constitutional Vitals: Temp Pulse Resp BP Pulse Ox 98.6 F 63 94 101/44 92 03/01/17 16:39 03/01/17 16:39 03/01/17 16:39 03/01/17 16:39 03/01/17 16:25 General appearance: Present: cooperative, A&O X 3, morbidly obese - Head Head exam: Present: normocephalic - Eye Eye exam: Present: conjuntiva pink - ENT ENT exam: Present: mucous membranes moist - Respiratory Respiratory exam: Present: decreased breath sounds, CTAB. Absent: rhonchi, wheezes - Cardiovascular Cardiovascular exam: Present: RRR. Absent: tachycardia - GI/Abdominal GI/Abdominal exam: Present: soft. Absent: tenderness - Neurological Exam Neurological exam: Present: alert, oriented X3, no focal deficits - Skin Skin exam: Present: rash Internal Medicine: Result - Labs CBC & Chem 7: 02/28/17 07:15 02/28/17 07:15 Consult Discharge Plan - Plan Referrals: Mary Daniels MD [Primary Care Provider] - 03/04/17 11:00 am
[2017-03-02] MEDS: Ipratropium/Albuterol Neb 3 ML IH SCH ×7 (01:00→23:22)
[2017-03-02 05:54] LABS: BUN/Creatinine Ratio 13 (6-26); Blood Urea Nitrogen 10 mg/dL (8-26); Calcium 8.3 mg/dL (8.6-10.8); Carbon Dioxide 32 mEq/L (19-29); Chloride 96 mEq/L (98-109); Glucose 117 mg/dL (70-99); Magnesium 1.6 mg/dL (1.6-2.6); Osmolality,Calculated 276 (280-300); Sodium 133 mEq/L (136-145); eGFR For African Americans > 60 (> 60); eGFR For Non-African Americans > 60 (> 60)
[2017-03-02] MEDS: *HR* Enoxaparin 40 MG/0.4 ML SYRINGE SQ SCH (06:09)
[2017-03-02 06:11] LABS: Potassium 3.9 mEq/L (3.5-4.5)
[2017-03-02] MEDS: Budesonide/Formoterol 160/4.5 MDI IH SCH ×2 (08:07→19:35)
[2017-03-02] MEDS: Insulin LISPRO 300 UNITS/3 ML VIAL SQ SCH ×4 (08:51→22:11)
[2017-03-02] MEDS: predniSONE 20 MG TABLET PO SCH (08:52)
[2017-03-02] MEDS: hydroCHLOROthiazide 25 MG TABLET PO SCH ×2 (08:53→22:29)
[2017-03-02] MEDS: Clotrimazole 1% CRM 15 GM TUBE TP SCH ×2 (08:53→22:30)
--- NOTE | 2017-03-02 16:58 | Internal Med Progress Note ---
Date of Encounter: 03/02/17 Time of Encounter: 11:45 - Assessment and plan (1) Hypokalemia Current Visit: Yes Status: Acute Assessment and plan: Resolved today. Recheck tomorrow AM. (2) COPD (chronic obstructive pulmonary disease) Current Visit: Yes Status: Acute Assessment and plan: Slow improvement. Begin to wean back therapy. Qualifiers: COPD type: COPD with acute exacerbation Qualified Code(s): J44.1 - Chronic obstructive pulmonary disease with (acute) exacerbation (3) Asthma Current Visit: Yes Status: Chronic Assessment and plan: Continue current meds. Qualifiers: Asthma severity: moderate persistent Asthma complication type: uncomplicated Qualified Code(s): J45.40 - Moderate persistent asthma, uncomplicated (4) Lumbar pain Current Visit: Yes Status: Acute Assessment and plan: Continue pain control and therapy. SNF on Friday. Qualifiers: Chronicity: chronic Back pain laterality: unspecified Sciatica presence: unspecified whether sciatica present Qualified Code(s): M54.5 - Low back pain ; G89.29 - Other chronic pain (5) Degenerative disc disease Current Visit: Yes Status: Acute Assessment and plan: Continue pain control and therapy. Plan for SNF on Friday. Qualifiers: Spinal region: lumbar Qualified Code(s): M51.36 - Other intervertebral disc degeneration, lumbar region (6) Fungal rash of torso Current Visit: Yes Status: Acute Assessment and plan: Continue topical cream (7) Diabetes mellitus Current Visit: Yes Status: Acute Assessment and plan: Continue current management. Blood sugar control adequate at this time. 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 Continue current regimen. Qualifiers: Hypertension type: essential hypertension Qualified Code(s): I10 - Essential (primary) hypertension - Subjective Interval history: Mr. Masterson is currently admitted for weakness, back pain and fungal rash. He is awaiting placement. He remains moderate risks due to pain meds and clinical status. Mr Masterson has no new issues. He is waiting to hear about SNF tomorrow. No fever or chills. No new issues or needs at this time. - Constitutional Vitals: Temp Pulse Resp BP Pulse Ox 98.0 F 83 16 145/77 94 03/02/17 16:34 03/02/17 16:34 03/02/17 16:34 03/02/17 16:34 03/02/17 16:34 General appearance: Present: cooperative, A&O X 3, morbidly obese - Head Head exam: Present: normocephalic - Eye Eye exam: Present: conjuntiva pink - ENT ENT exam: Present: mucous membranes moist - Respiratory Respiratory exam: Present: decreased breath sounds, CTAB - Cardiovascular Cardiovascular exam: Present: distant heart sounds, RRR. Absent: tachycardia - GI/Abdominal GI/Abdominal exam: Present: soft. Absent: tenderness - Extremities Exam Extremities exam: Present: warm. Absent: tenderness - Neurological Exam Neurological exam: Present: alert, oriented X3 - Skin Skin exam: Present: rash Internal Medicine: Result - Labs CBC & Chem 7: 02/28/17 07:15 03/02/17 05:26 Labs: [facility] 03/02/17 05:26 Sodium 133 L Potassium 3.9 Chloride 96 L Carbon Dioxide 32 H BUN 10 Creatinine 0.77 Glucose 117 H Calcium 8.3 L Consult Discharge Plan - Plan Referrals: Mary Daniels MD [Primary Care Provider] - 03/04/17 11:00 am
[2017-03-03] MEDS: Ipratropium/Albuterol Neb 3 ML IH SCH ×5 (03:49→20:02)
[2017-03-03 05:42] LABS: BUN/Creatinine Ratio 14 (6-26); Blood Urea Nitrogen 10 mg/dL (8-26); Calcium 8.8 mg/dL (8.6-10.8); Carbon Dioxide 29 mEq/L (19-29); Chloride 98 mEq/L (98-109); Glucose 120 mg/dL (70-99); Osmolality,Calculated 278 (280-300); Potassium 3.5 mEq/L (3.5-4.5); Sodium 134 mEq/L (136-145); eGFR For African Americans > 60 (> 60); eGFR For Non-African Americans > 60 (> 60)
[2017-03-03] MEDS: *HR* Enoxaparin 40 MG/0.4 ML SYRINGE SQ SCH (06:31)
[2017-03-03 06:42] LABS: Hematocrit 40.2 % (37.5-50.1); Hemoglobin 13.1 g/dL (12.9-16.9); Mean Corpuscular HGB Conc 32.6 g/dL (31.6-35.5); Mean Corpuscular Volume 85.9 fL (83.0-100.0); Mean Platelet Volume 8.5 fL (9.4-12.4); Platelet Count 191 K/mcL (140-400); Red Blood Count 4.68 M/mcL (4.19-5.50); Red Cell Distribution Width 13.6 % (11.5-14.5)
[2017-03-03] MEDS: Budesonide/Formoterol 160/4.5 MDI IH SCH ×2 (07:26→20:04)
[2017-03-03] MEDS: Insulin LISPRO 300 UNITS/3 ML VIAL SQ SCH ×4 (08:40→20:24)
[2017-03-03] MEDS: predniSONE 20 MG TABLET PO SCH (08:42)
[2017-03-03] MEDS: hydroCHLOROthiazide 25 MG TABLET PO SCH ×2 (08:42→20:24)
[2017-03-03] MEDS: Clotrimazole 1% CRM 15 GM TUBE TP SCH ×2 (08:42→20:25)
--- NOTE | 2017-03-03 09:35 | Discharge Summary ---
<Arthur Nolasco - Last Filed: 03/03/17 09:32> Date of Encounter: 03/03/17 Time of Encounter: 09:32 - Discharge Diagnosis (1) Degenerative disc disease Priority: Primary Status: Chronic Qualifiers: Spinal region: lumbar Qualified Code(s): M51.36 - Other intervertebral disc degeneration, lumbar region (2) COPD (chronic obstructive pulmonary disease) Priority: Secondary Status: Chronic Qualifiers: COPD type: COPD with acute exacerbation Qualified Code(s): J44.1 - Chronic obstructive pulmonary disease with (acute) exacerbation (3) HTN (hypertension) Priority: Secondary Status: Chronic Qualifiers: Hypertension type: essential hypertension Qualified Code(s): I10 - Essential (primary) hypertension (4) Diabetes mellitus Priority: Secondary Status: Chronic Qualifiers: Diabetes mellitus type: type 2 Diabetes mellitus complication status: with skin complications Diabetes mellitus complication detail: with other skin complication Diabetes mellitus terminal gauger insulin use: without longterm use Qualified Code(s): E11.628 - Type 2 diabetes mellitus with other skin complications - Discharge Medications Home Medications: Albuterol Neb [Proventil Neb] 2.5 mg IH TID PRN 02/26/17 [History] Albuterol Sulfate [Ventolin Hfa] 2 puff IH Q4H PRN 02/26/17 [History] Atenolol [Tenormin] 50 mg PO BID 02/26/17 [History] Budesonide Neb [Pulmicort Neb] 0.5 mg IH BID 02/26/17 [History] Clotrimazole 1% CRM [Lotrimin 1%] 1 appl TP BID 02/26/17 [History] Enalapril/Hydrochlorothiazide [Vaseretic 10-25 mg Tablet] 1 each PO BID [History] Formoterol Fumarate [Perforomist] 20 mcg IH BID 02/26/17 [History] Hydrocortisone 2.5% CREAM [Cortaid] 1 appl TP BID 02/26/17 [History] Metformin HCl [Metformin HCl ER] 1,000 mg PO BID 02/26/17 [History] Simvastatin [Zocor] 40 mg PO HS 02/26/17 [History] Allergies/Adverse Reactions: Allergies No Known Allergies Allergy (Verified 01/03/16 14:32) Date of admission: 02/26/17 20:13 Primary care physician: Mary Daniels Consults: 02/26/17 20:51 Consult to Physical Therapy [CONS] Routine Comment: Evaluate, develop and implement POC Reason for Consult: Low back pain with functional decline over the last year 02/26/17 20:52 Consult to Occupational Therapy [CONS] Routine Comment: Evaluate, develop and implement POC Reason for Consult: Low back pain with functional decline over the last year 02/27/17 14:25 Consult to Bindery Machine Setter/Set Up Operator [CONS] Routine Reason for SW Consult: Needs placement Discharging clinician: Arthur Nolasco Anticipated date of discharge: 03/03/17 - Patient Status Disposition: Transfer SNF Condition: Good Functional capacity at discharge: uses cane/walker Overall status at discharge: patient is progressing back to baseline - Discharge Instructions Additional Instructions: Please follow-up with your primary care physician as scheduled. Please resume your home medications. Please participate in treatment and rehabilitation at [facility]. Please return for any new or worsening symptoms. - Diet and Activity Activity: ambulate only with your walker, as per physical therapy, wear oxygen at night Diet: diabetic diet Interval History: Patient seen and examined at bedside. Patient states that he feels pretty good today. He feels like his breathing is improved slightly over the weekend. Feels like his back pain is at baseline. Denies any fever, chills, chest pain, abdominal pain, nausea, vomiting, diarrhea. Hospital course: Mr. Masterson is a 71 year old male with history of degenerative disc disease of the lumbar spine, COPD presented with lower back pain. The patient has chronic back pain that has gradually progressed the last year the point where he has difficulty getting out of bed and performing his activities of daily living. Patient lives at home with his who also has disability related to her underlying medical conditions and is very difficult for him to care for himself at home. Patient was continued on his home meds. He did have some wheezing while in the hospital so he was started on a short course of prednisone both for wheezing and for back pain. Patient remained stable while in the hospital. He will be discharged to [facility] in stable condition. - Time Spent with Patient Total time spent providing and/or coordinating discharge services: - Constitutional Vitals: Temp Pulse Resp BP Pulse Ox 97.8 F 100 16 124/82 94 03/03/17 06:33 03/03/17 06:33 03/03/17 07:26 03/03/17 06:33 03/03/17 07:26 General appearance: Present: cooperative, A&O X 3, morbidly obese - Respiratory Respiratory exam: Present: decreased breath sounds. Absent: rales, respiratory distress, rhonchi, wheezes, tachypnea - Cardiovascular Cardiovascular exam: Present: RRR. Absent: gallop, rubs, systolic murmur - GI/Abdominal GI/Abdominal exam: Present: normal bowel sounds, soft. Absent: distended, tenderness - Neurological Exam Neurological exam: Present: alert, CN II-XII intact, oriented X3, no focal deficits <Raul Doherty Halie - Last Filed: 03/03/17 19:50> Date of Encounter: 03/03/17 - Discharge Diagnosis (1) Hypokalemia Priority: Secondary Status: Resolved (2) COPD (chronic obstructive pulmonary disease) Status: Chronic Qualifiers: COPD type: COPD with acute exacerbation Qualified Code(s): J44.1 - Chronic obstructive pulmonary disease with (acute) exacerbation (3) Asthma Priority: Secondary Status: Chronic Qualifiers: Asthma severity: moderate persistent Asthma complication type: uncomplicated Qualified Code(s): J45.40 - Moderate persistent asthma, uncomplicated (4) Lumbar pain Priority: Primary Status: Acute Qualifiers: Chronicity: chronic Back pain laterality: unspecified Sciatica presence: unspecified whether sciatica present Qualified Code(s): M54.5 - Low back pain ; G89.29 - Other chronic pain (5) Degenerative disc disease Priority: Primary Status: Chronic Qualifiers: Spinal region: lumbar Qualified Code(s): M51.36 - Other intervertebral disc degeneration, lumbar region (6) Fungal rash of torso Priority: Secondary Status: Acute (7) Diabetes mellitus Status: Chronic Qualifiers: Diabetes mellitus type: type 2 Diabetes mellitus complication status: with skin complications Diabetes mellitus complication detail: with other skin complication Diabetes mellitus terminal gauger insulin use: without longterm use Qualified Code(s): E11.628 - Type 2 diabetes mellitus with other skin complications (8) HTN (hypertension) Status: Chronic Qualifiers: Hypertension type: essential hypertension Qualified Code(s): I10 - Essential (primary) hypertension Date of admission: 02/26/17 20:13 Primary care physician: Mary Daniels Consults: 02/26/17 20:51 Consult to Physical Therapy [CONS] Routine Comment: Evaluate, develop and implement POC Reason for Consult: Low back pain with functional decline over the last year 02/26/17 20:52 Consult to Occupational Therapy [CONS] Routine Comment: Evaluate, develop and implement POC Reason for Consult: Low back pain with functional decline over the last year 02/27/17 14:25 Consult to Bindery Machine Setter/Set Up Operator [CONS] Routine Reason for SW Consult: Needs placement Hospital course: Mr. Masterson is a 71 year old male - Time Spent with Patient Total time spent providing and/or coordinating discharge services: - Constitutional Vitals: Temp Pulse Resp BP Pulse Ox 97.8 F 96 18 156/90 97 03/03/17 18:33 03/03/17 18:33 03/03/17 18:33 03/03/17 18:33 03/03/17 18:33 - Attending Attestation I examined this patient and my medical decision-making was reviewed with the Resident Physician on 03/03/17. I agree with the documented findings, disposition and treatment plan as described except to the extent set forth below. Mr. Masterson was admitted for back pain. He is afebrile and ready for d/c to SNF. Exam Alert. Comfortable Heart reg No wheeze Rash improving. Plan D/C to SNF today
--- NOTE | 2017-03-03 09:41 | Physician Discharge Referral ---
ExtendedCare Referral Info Transfer To: [facility] Provider in Charge after Transfer: PCP Institutional Level of Care: Skilled - Diagnosis (1) Degenerative disc disease Priority: Primary Status: Chronic (2) COPD (chronic obstructive pulmonary disease) Priority: Secondary Status: Chronic (3) HTN (hypertension) Priority: Secondary Status: Chronic (4) Diabetes mellitus Priority: Secondary Status: Chronic Prognosis: Fair Aware of Diagnosis: Patient Aware of Prognosis: Patient - Transfer Medications Home Medications: Albuterol Neb [Proventil Neb] 2.5 mg IH TID PRN 02/26/17 [History] Albuterol Sulfate [Ventolin Hfa] 2 puff IH Q4H PRN 02/26/17 [History] Atenolol [Tenormin] 50 mg PO BID 02/26/17 [History] Budesonide Neb [Pulmicort Neb] 0.5 mg IH BID 02/26/17 [History] Clotrimazole 1% CRM [Lotrimin 1%] 1 appl TP BID 02/26/17 [History] Enalapril/Hydrochlorothiazide [Vaseretic 10-25 mg Tablet] 1 each PO BID [History] Formoterol Fumarate [Perforomist] 20 mcg IH BID 02/26/17 [History] Hydrocortisone 2.5% CREAM [Cortaid] 1 appl TP BID 02/26/17 [History] Metformin HCl [Metformin HCl ER] 1,000 mg PO BID 02/26/17 [History] Simvastatin [Zocor] 40 mg PO HS 02/26/17 [History] Allergies/Adverse Reactions: Allergies No Known Allergies Allergy (Verified 01/03/16 14:32) - Respiratory Orders Oxygen / L per min (2L at night) Smoking Cessation: Smoking cessation has been advised. For more information, call the [place] Tobacco Quit Line at 1-810-ZQBN-NOW. - Ancillary Orders May use pressure relief devices daily prn - Advance Directives Code Status: Full Code - Mobility Orders Ambulate (with assist, per PT) - Rehabiliation Orders Rehab Potential: Fair Rehab Orders: ROM Exercises, Evaluation for Physical Therapy, Evaluation for Occupational Therapy - Diet Orders Cardiac (Diabetic) CERTIFICATION: I certify that the transfer of the above named patient to an Extended Care Facility is necessary for the continuing treatment of the diagnosis listed. The above information is true and accurate reflection of patient's current condition. Confidential - Redisclosure prohibited without a patient's written consent.
[2017-03-03 18:34] VITALS: BP 156/90
== END 2017-03-03 22:23 ==
LOC: 3BNU 15:49 → EMEROO 15:49 → SUATTDRO 20:46 → 3BNU 21:05
PROVIDERS: ADMIT Internal Medicine; ATTEND Internal Medicine

== ENCOUNTER 2017-05-11 05:03 | Inpatient (IN) ==
[2017-05-11] MEDS ORDERED: Ondansetron 4 MG/2 ML VIAL IVP ONE (05:09)
--- NOTE | 2017-05-11 05:15 | Emergency Department Note ---
Disposition Clinical Impression: Sepsis Qualifiers: Sepsis type: sepsis due to unspecified organism Qualified Code(s): A41.9 - Sepsis, unspecified organism UTI (urinary tract infection) Qualifiers: Urinary tract infection type: site unspecified Hematuria presence: without hematuria Qualified Code(s): N39.0 - Urinary tract infection, site not specified Disposition: Still a Patient Condition: Good Referrals: NONE,PCP [Primary Care Provider] - Forms: ED Satisfaction Letter, Work/School Release Time of Disposition: 06:48 General Adult HPI - General Chief complaint: ED Abdominal Pain Stated complaint: RLQ pain Time Seen by Provider: 05/11/17 05:09 Source: patient, EMS Limitations: no limitations Nursing Notes Reviewed: Yes Vital Signs Reviewed: Yes - History of Present Illness HPI Narrative: 71-year-old male presenting to the emergency Department chief complaint of 2 day history of nausea, vomiting, diarrhea. Patient was brought by EMS. Patient is a poor historian. He states he started having right lower quadrant pain 2 days ago and had 1 episode of vomiting. He denies any other episodes of vomiting. He states today he started having diarrhea. According to EMS family called for an ambulance due to worsening symptoms. Patient also discloses difficulty urinating for the past 2 days. He states it just overflows but he cannot control it. Patient denies fevers at home. He denies shortness of breath or chest pain. Pain Scale: 10 - Related Data Home Medications Medication Instructions Recorded Confirmed Albuterol Neb [Proventil Neb] 2.5 mg IH TID PRN 02/26/17 02/26/17 Albuterol Sulfate [Ventolin Hfa] 2 puff IH Q4H PRN 02/26/17 02/26/17 Atenolol [Tenormin] 50 mg PO BID 02/26/17 02/26/17 Budesonide Neb [Pulmicort Neb] 0.5 mg IH BID 02/26/17 02/26/17 Clotrimazole 1% CRM [Lotrimin 1%] 1 appl TP BID 02/26/17 02/26/17 Enalapril/Hydrochlorothiazide 1 each PO BID 02/26/17 02/26/17 [Vaseretic 10-25 mg Tablet] Formoterol Fumarate [Perforomist] 20 mcg IH BID 02/26/17 02/26/17 Hydrocortisone 2.5% CREAM [Cortaid] 1 appl TP BID 02/26/17 02/26/17 Metformin HCl [Metformin HCl ER] 1,000 mg PO BID 02/26/17 02/26/17 Simvastatin [Zocor] 40 mg PO HS 02/26/17 02/26/17 Allergies Allergy/AdvReac Type Severity Reaction Status Date / Time No Known Allergies Allergy Verified 01/03/16 14:32 All systems ED: reviewed and negative except as stated. Constitutional: Denies: fever, chills Eyes: Reports: as per HPI ENT ED: Reports: as per HPI Cardiovascular: Denies: chest pain, palpitations Respiratory: Denies: cough, dyspnea, wheezes Gastrointestinal: Reports: abdominal pain, nausea, vomiting, diarrhea Genitourinary: Reports: as per HPI Musculoskeletal: Reports: as per HPI Integumentary: Reports: as per HPI Neurological: Reports: as per HPI Psychiatric: Reports: as per HPI Endocrine: Reports: as per HPI Hematological/Lymphatic: Reports: as per HPI Allergic/Immunologic: Reports: as per HPI Past Medical History - Past Medical History Attestation: Yes The following information was validated with the patient. Medical history: Reports: arthritis, asthma, CHF, diabetes, hypertension Psychiatric history: Reports: no psych history - Social History Smoking Status: Former smoker Smokeless Tobacco Status: Yes Alcohol use: Reports: none Drug use: Reports: none Physical Exam - General Limitations: no limitations General appearance: alert, in no apparent distress - Head Head exam: atraumatic, normocephalic, normal inspection - Chest Chest inspection: Present: normal inspection, symmetric chest wall rise. Absent : tenderness - Respiratory Respiratory exam: Present: normal lung sounds bilaterally. Absent: respiratory distress, wheezes - Cardiovascular Cardiovascular exam: Present: normal rhythm, tachycardia, normal heart sounds - Abdominal Exam Abdominal exam: Present: tenderness, hernia (Umbilical. Easily reducible.). Absent: distention, guarding, rebound, rigidity Abdominal tenderness: Present: RLQ, moderate - Neurological Exam Neurological exam: Present: alert - Psychiatric Psychiatric exam: Present: normal affect, normal mood - Skin Skin exam: Present: other (venous stasis dermatitis with dry scaling skin, chronic) Course Course Narrative: 70-year-old male presenting to the emergency department complaining of right quadrant pain. Patient is tachycardic at this time. We will provide him with fluids and antinausea medicine. We will complete a abdominal pain workup including CT with IV contrast of the abdomen and pelvis and basic lab work. Disposition pending results. Patient's alert in the room and stable at this time. - Reevaluation(s) Reevaluation #1: Patient laboratory work shows a white blood cell count. Patient in the room. Teeth fit sepsis criteria at this time. We will start 500 mL boluses due to his CHF. Antibiotics at this time. Most likely source of infection is urinary tract. Concern for possible PE due to hypoxia at rest and tachycardia. The complete a CT of the chest along with a CT of abdomen and pelvis. Patient stable in the room at this time. He is tachycardic but otherwise has stable vital signs. I will sign the patient out to my fellow resident Dr. Szymanski. Time: 06:47 Vital Signs Temperature 97.9 F 05/11/17 05:04 Pulse Rate 111 05/11/17 05:04 Respiratory Rate 20 05/11/17 05:04 Blood Pressure 121/98 05/11/17 05:04 O2 Sat by Pulse Oximetry 94 05/11/17 05:04 Temperature 97.9 F 05/11/17 05:04 Pulse Rate 114 05/11/17 06:45 Respiratory Rate 18 05/11/17 06:45 Blood Pressure 126/72 05/11/17 06:45 O2 Sat by Pulse Oximetry 98 05/11/17 06:45 Oxygen Delivery Oxygen Delivery Nasal Cannula Medical Decision Making - Lab Data Result diagrams: 05/11/17 05:20 05/11/17 05:20 Lab Results 05/11/17 05/11/17 05/11/17 Range/Units 05:20 05:20 05:20 WBC 18.1 H (4.3-11.1) K/mcL RBC 5.12 (4.19-5.50) M/mcL Hgb 14.7 (12.9-16.9) g/dL Hct 43.4 (37.5-50.1) % MCV 84.8 (83.0-100.0) fL MCH 28.7 (28.0-33.3) pg MCHC 33.9 (31.6-35.5) g/dL RDW 13.5 (11.5-14.5) % Plt Count 231 (140-400) K/mcL MPV 8.1 L (9.4-12.4) fL Immature Gran % 0.7 (0-4) % Seg Neutrophils % 81.6 % Lymphocytes % 8.3 % Monocytes % 6.3 % Eosinophils % 2.7 % Basophils % 0.4 % Neutrophils # 14.8 H (1.6-8.9) K/mcL Lymphocytes # 1.5 (0.6-4.6) K/mcL Monocytes # 1.1 (0.0-1.3) K/mcL Eosinophils # 0.5 (0.0-0.6) K/mcL Basophils # 0.1 (0.0-0.2) K/mcL VBG pH (7.32-7.42) pH Units VBG pCO2 (41-51) mmHg VBG pO2 (25-50) mmHg VBG HCO3 (21-27) mEq/L Sodium 131 L (136-145) mEq/L Potassium 3.8 (3.5-4.5) mEq/L Chloride 94 L (98-109) mEq/L Carbon Dioxide 25 (19-29) mEq/L BUN 28 H (8-26) mg/dL Creatinine 1.30 H (0.72-1.25) mg/dL Est GFR ( Amer) > 60 (> 60) Est GFR (Non-Af Amer) 54 L (> 60) BUN/Creatinine Ratio 22 (6-26) Glucose 164 H (70-99) mg/dL Calculated Osmolality 281 (280-300) Calcium 9.1 (8.6-10.8) mg/dL Total Bilirubin 0.6 (0.2-1.2) mg/dL Direct Bilirubin 0.3 (0.0-0.5) mg/dL Indirect Bilirubin 0.3 (0.0-1.2) mg/dL AST 10 (5-34) Units/L ALT < 6 (0-55) Units/L Alkaline Phosphatase 52 (38-126) Units/L Troponin I 0.01 (0-0.03) ng/mL Serum Total Protein 7.4 (6.0-8.3) g/dL Albumin 2.9 L (3.5-5.0) g/dL Globulin 4.5 H (2.4-3.5) g/dL Albumin/Globulin Ratio 0.6 L (1.1-2.2) Lipase 15 (8-78) Units/L Beta-Hydroxybutyric Acd (0.02-0.27) mmol/L Urine Color (Yellow) Urine Clarity (Clear) Urine pH (5.0-8.0) pH Units Ur Specific W[place] (1.010-1.025) Urine Protein (Neg-Trace) mg/dL Urine Glucose (UA) (Normal) mg/dL Urine Ketones (Negative) mg/dL Urine Blood (Negative) Urine Nitrite (Negative) Urine Bilirubin (Negative) Urine Urobilinogen (Normal) mg/dL Ur Leukocyte Esterase (Negative) Urine Microscopic RBC (0-3) per hpf Urine Microscopic WBC (0-3) per hpf Ur Squamous Epith Cells (None-Few) per lpf Urine Bacteria (None-Few) per hpf Hyaline Casts (None-Few) per lpf Ur Culture Indicated? (NO) 05/11/17 05/11/17 05/11/17 Range/Units 05:20 05:30 06:22 WBC (4.3-11.1) K/mcL RBC (4.19-5.50) M/mcL Hgb (12.9-16.9) g/dL Hct (37.5-50.1) % MCV (83.0-100.0) fL MCH (28.0-33.3) pg MCHC (31.6-35.5) g/dL RDW (11.5-14.5) % Plt Count (140-400) K/mcL MPV (9.4-12.4) fL Immature Gran % (0-4) % Seg Neutrophils % % Lymphocytes % % Monocytes % % Eosinophils % % Basophils % % Neutrophils # (1.6-8.9) K/mcL Lymphocytes # (0.6-4.6) K/mcL Monocytes # (0.0-1.3) K/mcL Eosinophils # (0.0-0.6) K/mcL Basophils # (0.0-0.2) K/mcL VBG pH 7.33 (7.32-7.42) pH Units VBG pCO2 58 H (41-51) mmHg VBG pO2 39 (25-50) mmHg VBG HCO3 31 H (21-27) mEq/L Sodium (136-145) mEq/L Potassium (3.5-4.5) mEq/L Chloride (98-109) mEq/L Carbon Dioxide (19-29) mEq/L BUN (8-26) mg/dL Creatinine (0.72-1.25) mg/dL Est GFR ( Amer) (> 60) Est GFR (Non-Af Amer) (> 60) BUN/Creatinine Ratio (6-26) Glucose (70-99) mg/dL Calculated Osmolality (280-300) Calcium (8.6-10.8) mg/dL Total Bilirubin (0.2-1.2) mg/dL Direct Bilirubin (0.0-0.5) mg/dL Indirect Bilirubin (0.0-1.2) mg/dL AST (5-34) Units/L ALT (0-55) Units/L Alkaline Phosphatase (38-126) Units/L Troponin I (0-0.03) ng/mL Serum Total Protein (6.0-8.3) g/dL Albumin (3.5-5.0) g/dL Globulin (2.4-3.5) g/dL Albumin/Globulin Ratio (1.1-2.2) Lipase (8-78) Units/L Beta-Hydroxybutyric Acd 0.39 H (0.02-0.27) mmol/L Urine Color [place] A (Yellow) Urine Clarity Turbid A (Clear) Urine pH 6.0 (5.0-8.0) pH Units Ur Specific Waucoma 1.016 (1.010-1.025) Urine Protein 30 H (Neg-Trace) mg/dL Urine Glucose (UA) Normal (Normal) mg/dL Urine Ketones Negative (Negative) mg/dL Urine Blood Large H (Negative) Urine Nitrite Positive A (Negative) Urine Bilirubin Negative (Negative) Urine Urobilinogen Normal (Normal) mg/dL Ur Leukocyte Esterase Large H (Negative) Urine Microscopic RBC 0-3 (0-3) per hpf Urine Microscopic WBC TNTC H (0-3) per hpf Ur Squamous Epith Cells Moderate H (None-Few) per lpf Urine Bacteria Moderate H (None-Few) per hpf Hyaline Casts None Seen (None-Few) per lpf Ur Culture Indicated? YES A (NO) - EKG Data EKG #1 EKG attestation: Yes I reviewed and interpreted this EKG. EKG results narrative: Atrial tachycardia rate of 114 beats per minute. Left axis deviation. [place] interval 2:15, QRS 112, QTC 443. No signs of ST segment elevation or ischemia noted. When compared to previous EKG completed on 01/03/2016 no significant changes.
--- NOTE | 2017-05-11 05:19 | Emergency Department Note ---
START Narrative - START START: I examined this patient and my medical decision-making was reviewed with the Resident Physician. I agree with the documented findings, disposition and treatment plan as described except to the extent set forth below. 71 year old male presnts to the ED with complaints of RLQ abdominal pain that started 2 days ago and that he has been experiencing an excerbation for the past few hours and that he also has been experiencing increased diarrhea and states that he is bed bound. 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 We will do abdominal labs and ABCT with IV contrast and rule out colitis, appendicitis, galbladder pathology. IVF started.
[2017-05-11] MEDS ORDERED: 0.9 % Sodium Chloride 500 ML IVC ONE ×2 (05:20→05:47)
[2017-05-11 05:29] LABS: Basophils # 0.1 K/mcL (0.0-0.2); Basophils % 0.4 %; Eosinophils # 0.5 K/mcL (0.0-0.6); Eosinophils % 2.7 %; Hematocrit 43.4 % (37.5-50.1); Hemoglobin 14.7 g/dL (12.9-16.9); Immature Granulocytes % 0.7 % (0-4); Lymphocytes # 1.5 K/mcL (0.6-4.6); Lymphocytes % 8.3 %; Mean Corpuscular HGB Conc 33.9 g/dL (31.6-35.5); Mean Corpuscular Hemoglobin 28.7 pg (28.0-33.3); Mean Corpuscular Volume 84.8 fL (83.0-100.0); Mean Platelet Volume 8.1 fL (9.4-12.4); Monocytes # 1.1 K/mcL (0.0-1.3); Monocytes % 6.3 %; Neutrophils # 14.8 K/mcL (1.6-8.9); Platelet Count 231 K/mcL (140-400); Red Blood Count 5.12 M/mcL (4.19-5.50); Red Cell Distribution Width 13.5 % (11.5-14.5); Segmented Neutrophils % 81.6 %
[2017-05-11] MEDS ORDERED: MetroNIDAZOLE 500 MG/100 ML 500 MG/100 ML BAG IVPB ONE (05:31)
[2017-05-11 05:37] LABS: Bilirubin,Urine Negative (Negative); Blood,Urine Large (Negative); Clarity,Urine Turbid (Clear); Color,Urine Orange (Yellow); Glucose,Urine (UA) Normal (Normal); Ketones,Urine Negative (Negative); Leukocyte Esterase,Urine Large (Negative); Nitrite,Urine Positive (Negative); Protein,Urine 30 mg/dL (Neg-Trace); Specific Gravity,Urine 1.016 (1.010-1.025); Urobilinogen,Urine Normal (Normal)
[2017-05-11 05:39] LABS: Bacteria,Urine Moderate per hpf (None-Few); Hyaline Casts,Urine None Seen per lpf (None-Few); Squamous Epithelial Cell,Urine Moderate per lpf (None-Few); WBC,Urine TNTC per hpf (0-3)
[2017-05-11 05:43] LABS: Albumin 2.9 g/dL (3.5-5.0); Albumin/Globulin Ratio 0.6 (1.1-2.2); Alkaline Phosphatase 52 Units/L (38-126); Aspartate Amino Transferase 10 Units/L (5-34); BUN/Creatinine Ratio 22 (6-26); Bilirubin,Direct 0.3 mg/dL (0.0-0.5); Bilirubin,Indirect 0.3 mg/dL (0.0-1.2); Bilirubin,Total 0.6 mg/dL (0.2-1.2); Blood Urea Nitrogen 28 mg/dL (8-26); Calcium 9.1 mg/dL (8.6-10.8); Carbon Dioxide 25 mEq/L (19-29); Chloride 94 mEq/L (98-109); Globulin 4.5 g/dL (2.4-3.5); Glucose 164 mg/dL (70-99); Lipase 15 Units/L (8-78); Osmolality,Calculated 281 (280-300); Potassium 3.8 mEq/L (3.5-4.5); Sodium 131 mEq/L (136-145); Total Protein 7.4 g/dL (6.0-8.3); eGFR For African Americans > 60 (> 60); eGFR For Non-African Americans 54 (> 60)
[2017-05-11 05:44] LABS: Alanine Aminotransferase < 6 Units/L (0-55)
[2017-05-11 05:54] LABS: RBC,Urine 0-3 per hpf (0-3)
[2017-05-11 06:24] LABS: VBG HCO3 31 mEq/L (21-27); VBG PCO2 58 mmHg (41-51); VBG PH 7.33 pH Units (7.32-7.42); VBG PO2 39 mmHg (25-50)
--- NOTE | 2017-05-11 08:49 | Emergency Department Note ---
Disposition Clinical Impression: Sepsis Qualifiers: Sepsis type: sepsis due to unspecified organism Qualified Code(s): A41.9 - Sepsis, unspecified organism UTI (urinary tract infection) Qualifiers: Urinary tract infection type: site unspecified Hematuria presence: without hematuria Qualified Code(s): N39.0 - Urinary tract infection, site not specified Disposition: Admitted As Inpatient Condition: Good General Adult HPI - General Chief complaint: ED Abdominal Pain Stated complaint: RLQ pain Time Seen by Provider: 05/11/17 05:09 Source: patient, EMS Limitations: no limitations - History of Present Illness Pain Scale: 0 - Related Data Home Medications Medication Instructions Recorded Confirmed Albuterol Neb [Proventil Neb] 2.5 mg IH TID PRN 02/26/17 05/11/17 Albuterol Sulfate [Ventolin Hfa] 2 puff IH Q4H PRN 02/26/17 05/11/17 Budesonide Neb [Pulmicort Neb] 0.5 mg IH BID 02/26/17 05/11/17 Clotrimazole 1% CRM [Lotrimin 1%] 1 appl TP BID 02/26/17 05/11/17 Enalapril/Hydrochlorothiazide 1 each PO BID 02/26/17 05/11/17 [Vaseretic 10-25 mg Tablet] Formoterol Fumarate [Perforomist] 20 mcg IH BID 02/26/17 05/11/17 Hydrocortisone 2.5% CREAM [Cortaid] 1 appl TP BID 02/26/17 05/11/17 Metformin HCl [Metformin HCl ER] 1,000 mg PO BID 02/26/17 05/11/17 Simvastatin [Zocor] 40 mg PO HS 02/26/17 05/11/17 Metoprolol Succinate 100 mg PO DAILY 05/11/17 05/11/17 Allergies Allergy/AdvReac Type Severity Reaction Status Date / Time No Known Allergies Allergy Verified 05/11/17 09:09 Constitutional: Denies: fever, chills Eyes: Reports: as per HPI ENT ED: Reports: as per HPI Cardiovascular: Denies: chest pain, palpitations Respiratory: Denies: cough, dyspnea, wheezes Gastrointestinal: Reports: abdominal pain, nausea, vomiting, diarrhea Genitourinary: Reports: as per HPI Musculoskeletal: Reports: as per HPI Integumentary: Reports: as per HPI Neurological: Reports: as per HPI Psychiatric: Reports: as per HPI Endocrine: Reports: as per HPI Hematological/Lymphatic: Reports: as per HPI Allergic/Immunologic: Reports: as per HPI Past Medical History - Past Medical History Medical history: Reports: arthritis, asthma, CHF, diabetes, hypertension Psychiatric history: Reports: no psych history - Social History Smoking Status: Former smoker Smokeless Tobacco Status: Yes Alcohol use: Reports: none Drug use: Reports: none Physical Exam - General Limitations: no limitations General appearance: alert, in no apparent distress Course Vital Signs Temperature 97.9 F 05/11/17 05:04 Pulse Rate 111 05/11/17 05:04 Respiratory Rate 20 05/11/17 05:04 Blood Pressure 121/98 05/11/17 05:04 O2 Sat by Pulse Oximetry 94 05/11/17 05:04 Temperature 97.9 F 05/11/17 10:11 Pulse Rate 73 05/11/17 10:11 Respiratory Rate 17 05/11/17 10:11 Blood Pressure 115/65 05/11/17 10:11 O2 Sat by Pulse Oximetry 97 05/11/17 10:11 Oxygen Delivery Oxygen Delivery Nasal Cannula Medical Decision Making - MDM Narrative Medical decision making narrative: Care assumed from dayshift team. Please see their documentation for history of present illness. Currently waiting for results of his CT scans. Reviewed imaging with no acute findings in the head or abdomen. Patient meets sepsis criteria for tachycardia and leukocytosis. He has been given 1 L of fluids due to concern for CHF. His lactate is normal. He was given Cipro and Flagyl by the previous team. He will be admitted to the hospitalist service for urosepsis. - Lab Data Lab results reviewed: Yes I reviewed the patient's lab results. Result diagrams: 05/11/17 05:20 05/11/17 05:20 Lab Results 05/11/17 05/11/17 05/11/17 Range/Units 05:20 05:20 05:20 WBC 18.1 H (4.3-11.1) K/mcL RBC 5.12 (4.19-5.50) M/mcL Hgb 14.7 (12.9-16.9) g/dL Hct 43.4 (37.5-50.1) % MCV 84.8 (83.0-100.0) fL MCH 28.7 (28.0-33.3) pg MCHC 33.9 (31.6-35.5) g/dL RDW 13.5 (11.5-14.5) % Plt Count 231 (140-400) K/mcL MPV 8.1 L (9.4-12.4) fL Immature Gran % 0.7 (0-4) % Seg Neutrophils % 81.6 % Lymphocytes % 8.3 % Monocytes % 6.3 % Eosinophils % 2.7 % Basophils % 0.4 % Neutrophils # 14.8 H (1.6-8.9) K/mcL Lymphocytes # 1.5 (0.6-4.6) K/mcL Monocytes # 1.1 (0.0-1.3) K/mcL Eosinophils # 0.5 (0.0-0.6) K/mcL Basophils # 0.1 (0.0-0.2) K/mcL VBG pH (7.32-7.42) pH Units VBG pCO2 (41-51) mmHg VBG pO2 (25-50) mmHg VBG HCO3 (21-27) mEq/L Sodium 131 L (136-145) mEq/L Potassium 3.8 (3.5-4.5) mEq/L Chloride 94 L (98-109) mEq/L Carbon Dioxide 25 (19-29) mEq/L BUN 28 H (8-26) mg/dL Creatinine 1.30 H (0.72-1.25) mg/dL Est GFR ( Amer) > 60 (> 60) Est GFR (Non-Af Amer) 54 L (> 60) BUN/Creatinine Ratio 22 (6-26) Glucose 164 H (70-99) mg/dL Calculated Osmolality 281 (280-300) Lactic Acid (0.5-2.2) mmol/L Calcium 9.1 (8.6-10.8) mg/dL Total Bilirubin 0.6 (0.2-1.2) mg/dL Direct Bilirubin 0.3 (0.0-0.5) mg/dL Indirect Bilirubin 0.3 (0.0-1.2) mg/dL AST 10 (5-34) Units/L ALT < 6 (0-55) Units/L Alkaline Phosphatase 52 (38-126) Units/L Troponin I 0.01 (0-0.03) ng/mL B-Natriuretic Peptide (0-100) pg/mL Serum Total Protein 7.4 (6.0-8.3) g/dL Albumin 2.9 L (3.5-5.0) g/dL Globulin 4.5 H (2.4-3.5) g/dL Albumin/Globulin Ratio 0.6 L (1.1-2.2) Lipase 15 (8-78) Units/L Beta-Hydroxybutyric Acd (0.02-0.27) mmol/L Urine Color (Yellow) Urine Clarity (Clear) Urine pH (5.0-8.0) pH Units Ur Specific Center (1.010-1.025) Urine Protein (Neg-Trace) mg/dL Urine Glucose (UA) (Normal) mg/dL Urine Ketones (Negative) mg/dL Urine Blood (Negative) Urine Nitrite (Negative) Urine Bilirubin (Negative) Urine Urobilinogen (Normal) mg/dL Ur Leukocyte Esterase (Negative) Urine Microscopic RBC (0-3) per hpf Urine Microscopic WBC (0-3) per hpf Ur Squamous Epith Cells (None-Few) per lpf Urine Bacteria (None-Few) per hpf Hyaline Casts (None-Few) per lpf Ur Culture Indicated? (NO) 05/11/17 05/11/17 05/11/17 Range/Units 05:20 05:20 05:30 WBC (4.3-11.1) K/mcL RBC (4.19-5.50) M/mcL Hgb (12.9-16.9) g/dL Hct (37.5-50.1) % MCV (83.0-100.0) fL MCH (28.0-33.3) pg MCHC (31.6-35.5) g/dL RDW (11.5-14.5) % Plt Count (140-400) K/mcL MPV (9.4-12.4) fL Immature Gran % (0-4) % Seg Neutrophils % % Lymphocytes % % Monocytes % % Eosinophils % % Basophils % % Neutrophils # (1.6-8.9) K/mcL Lymphocytes # (0.6-4.6) K/mcL Monocytes # (0.0-1.3) K/mcL Eosinophils # (0.0-0.6) K/mcL Basophils # (0.0-0.2) K/mcL VBG pH (7.32-7.42) pH Units VBG pCO2 (41-51) mmHg VBG pO2 (25-50) mmHg VBG HCO3 (21-27) mEq/L Sodium (136-145) mEq/L Potassium (3.5-4.5) mEq/L Chloride (98-109) mEq/L Carbon Dioxide (19-29) mEq/L BUN (8-26) mg/dL Creatinine (0.72-1.25) mg/dL Est GFR ( Amer) (> 60) Est GFR (Non-Af Amer) (> 60) BUN/Creatinine Ratio (6-26) Glucose (70-99) mg/dL Calculated Osmolality (280-300) Lactic Acid (0.5-2.2) mmol/L Calcium (8.6-10.8) mg/dL Total Bilirubin (0.2-1.2) mg/dL Direct Bilirubin (0.0-0.5) mg/dL Indirect Bilirubin (0.0-1.2) mg/dL AST (5-34) Units/L ALT (0-55) Units/L Alkaline Phosphatase (38-126) Units/L Troponin I (0-0.03) ng/mL B-Natriuretic Peptide 23 (0-100) pg/mL Serum Total Protein (6.0-8.3) g/dL Albumin (3.5-5.0) g/dL Globulin (2.4-3.5) g/dL Albumin/Globulin Ratio (1.1-2.2) Lipase (8-78) Units/L Beta-Hydroxybutyric Acd 0.39 H (0.02-0.27) mmol/L Urine Color [place] A (Yellow) Urine Clarity [place] A (Clear) Urine pH 6.0 (5.0-8.0) pH Units Ur Specific Center 1.016 (1.010-1.025) Urine Protein 30 H (Neg-Trace) mg/dL Urine Glucose (UA) Normal (Normal) mg/dL Urine Ketones Negative (Negative) mg/dL Urine Blood Large H (Negative) Urine Nitrite Positive A (Negative) Urine Bilirubin Negative (Negative) Urine Urobilinogen Normal (Normal) mg/dL Ur Leukocyte Esterase Large H (Negative) Urine Microscopic RBC 0-3 (0-3) per hpf Urine Microscopic WBC TNTC H (0-3) per hpf Ur Squamous Epith Cells Moderate H (None-Few) per lpf Urine Bacteria Moderate H (None-Few) per hpf Hyaline Casts None Seen (None-Few) per lpf Ur Culture Indicated? YES A (NO) 05/11/17 05/11/17 Range/Units 06:22 08:10 WBC (4.3-11.1) K/mcL RBC (4.19-5.50) M/mcL Hgb (12.9-16.9) g/dL Hct (37.5-50.1) % MCV (83.0-100.0) fL MCH (28.0-33.3) pg MCHC (31.6-35.5) g/dL RDW (11.5-14.5) % Plt Count (140-400) K/mcL MPV (9.4-12.4) fL Immature Gran % (0-4) % Seg Neutrophils % % Lymphocytes % % Monocytes % % Eosinophils % % Basophils % % Neutrophils # (1.6-8.9) K/mcL Lymphocytes # (0.6-4.6) K/mcL Monocytes # (0.0-1.3) K/mcL Eosinophils # (0.0-0.6) K/mcL Basophils # (0.0-0.2) K/mcL VBG pH 7.33 (7.32-7.42) pH Units VBG pCO2 58 H (41-51) mmHg VBG pO2 39 (25-50) mmHg VBG HCO3 31 H (21-27) mEq/L Sodium (136-145) mEq/L Potassium (3.5-4.5) mEq/L Chloride (98-109) mEq/L Carbon Dioxide (19-29) mEq/L BUN (8-26) mg/dL Creatinine (0.72-1.25) mg/dL Est GFR ( Amer) (> 60) Est GFR (Non-Af Amer) (> 60) BUN/Creatinine Ratio (6-26) Glucose (70-99) mg/dL Calculated Osmolality (280-300) Lactic Acid 1.4 (0.5-2.2) mmol/L Calcium (8.6-10.8) mg/dL Total Bilirubin (0.2-1.2) mg/dL Direct Bilirubin (0.0-0.5) mg/dL Indirect Bilirubin (0.0-1.2) mg/dL AST (5-34) Units/L ALT (0-55) Units/L Alkaline Phosphatase (38-126) Units/L Troponin I (0-0.03) ng/mL B-Natriuretic Peptide (0-100) pg/mL Serum Total Protein (6.0-8.3) g/dL Albumin (3.5-5.0) g/dL Globulin (2.4-3.5) g/dL Albumin/Globulin Ratio (1.1-2.2) Lipase (8-78) Units/L Beta-Hydroxybutyric Acd (0.02-0.27) mmol/L Urine Color (Yellow) Urine Clarity (Clear) Urine pH (5.0-8.0) pH Units Ur Specific Center (1.010-1.025) Urine Protein (Neg-Trace) mg/dL Urine Glucose (UA) (Normal) mg/dL Urine Ketones (Negative) mg/dL Urine Blood (Negative) Urine Nitrite (Negative) Urine Bilirubin (Negative) Urine Urobilinogen (Normal) mg/dL Ur Leukocyte Esterase (Negative) Urine Microscopic RBC (0-3) per hpf Urine Microscopic WBC (0-3) per hpf Ur Squamous Epith Cells (None-Few) per lpf Urine Bacteria (None-Few) per hpf Hyaline Casts (None-Few) per lpf Ur Culture Indicated? (NO) - Radiology Data Radiology results reviewed: Yes I reviewed the patient's radiology results. Abdomen/Pelvis CT 05/11/17 05:10 IMPRESSION: No acute intra-abdominal or pelvic process seen. Benign left renal cysts. Ventral hernia containing mesenteric fat Sigmoid diverticulosis Thickened bladder wall decompressed with a Rojas catheter Arthritic changes lumbar spine and hips Nonspecific 1 cm nodule in the subcutaneous fat anterior abdominal wall just right of midline. D/ / Omega Urbina MD / Omega Urbina MD Interpreting Provider: Omega Urbina MD Chest X-Ray 05/11/17 05:21 IMPRESSION: Chronic findings without acute process. D/ / Bhumi Saldivar MD / Bhumi Saldivar MD Interpreting Provider: Bhumi Saldivar MD Chest CTA 05/11/17 05:55 IMPRESSION: Negative CTA of the pulmonary arteries. Beyond the 2nd order branching the assessment of the pulmonary arteries is suboptimal. Minimal bibasilar linear fibrosis with some mild emphysematous changes noted in the lung apices. D/ / Omega Urbina MD / Omega Urbina MD Interpreting Provider: Omega Urbina MD Head CT 05/11/17 06:44 IMPRESSION: No evidence of acute intracranial abnormality. If clinical symptomatology warrants, follow-up MRI examination may be helpful for more complete evaluation. D/ / Fidel Cunningham MD / Fidel Cunningham MD Interpreting Provider: Fidel Cunningham MD S.B.A.R. - S.B.A.R. Situation: Demographics, MOA Background: Presenting Complaint, Relevant PMH, Meds, & Allergies Assessment: Vital Signs, Course and respsone to treatment, Exam Concerns, Patient/Family Expectation, Pertinant Lab Results Recommendation: Barrier(s) to disposition, Recommendation based on pending studies, treatments, or consults S.B.A.R. Report Given to: Dr. Rodriguez Attestation Statement - Attestation Attestation: Patient was seen with resident physician. I reviewed the history, physical, assessment and plan, and agree with the findings. I also personally evaluated this patient and had [id number] time with this patient. 71-year-old male was signed out us IV night baker team who is working the patient up for sepsis. Basically the signout included follow-up on the CT scans that were ordered and call hospitalist for admission for urosepsis. CT scans did not show acute abnormalities. Patient was continued on his treatment for urosepsis. Blood cultures and lactate levels were added. Examination patient appeared in no acute distress. Heart was regular rhythm and rate. Lungs are clear. Abdomen soft and cannot elicit tenderness. Neurologically the patient was intact. ED course we follow-up on the CT scan reports call the hospitalist for admission and the patient was admitted for urosepsis.
--- NOTE | 2017-05-11 09:50 | Internal Med History&Physical ---
Date of Encounter: 05/11/17 Time of Encounter: 09:46 Assessment and Plan (1) Complicated UTI (urinary tract infection) Current visit: Yes Status: Acute Diagnosis based on urinary symptoms, dysuria and difficulty urinating, incontinence and positive urinalysis. We will treat this with ceftriaxone. Follow-up urine culture and sensitivities from the emergency department. Rojas catheter was placed for urinary retention. (2) Acute cystitis with hematuria Current visit: Yes Status: Acute Urinalysis positive for large blood. Positive for leukocyte esterase and nitrite. Positive for WBC. We will treat empirically with ceftriaxone and follow-up culture and sensitivities. (3) Acute kidney injury Current visit: Yes Status: Acute Per chart review his baseline creatinine is 0.7 on 03/03/2017. Today is 1.3 which is more than 0.5 increase. I suspect a prerenal component and possible postrenal obstruction if the left-sided hydronephrosis and hydroureter are confirmed. I will await official CT abdomen and pelvis result. We will continue with Rojas catheter for now. Gentle IV fluid hydration. Avoid nephrotoxins. Monitor kidney function. (4) Degenerative joint disease Current visit: Yes Status: Acute Pain control with Tylenol and [place]. PT OT evaluation. Social work consult for possible short-term rehabilitation placement. Qualifiers: Osteoarthritis location: multiple joints Osteoarthritis type: primary Qualified Code(s): M15.0 - Primary generalized (osteo)arthritis (5) HTN (hypertension) Current visit: No Status: Chronic Blood pressure is on the low side, likely secondary to sepsis. I will hold enalapril and HCTZ for now particularly because of acute kidney injury. I will continue her metoprolol with holding parameters. Qualifiers: Hypertension type: essential hypertension Qualified Code(s): I10 - Essential (primary) hypertension (6) Diabetes mellitus Current visit: No Status: Chronic Hold oral. Start insulin sliding scale and low-dose basal coverage. Diabetic diet. Check hemoglobin A1c. Qualifiers: Diabetes mellitus type: type 2 Diabetes mellitus complication status: with skin complications Diabetes mellitus complication detail: with other skin complication Diabetes mellitus terminal carman insulin use: without senior living use Qualified Code(s): E11.628 - Type 2 diabetes mellitus with other skin complications (7) COPD (chronic obstructive pulmonary disease) Current visit: No Status: Chronic No evidence of exacerbation. We will treat with albuterol and ipratropium. Supplemental oxygen. Qualifiers: COPD type: unspecified COPD Qualified Code(s): J44.9 - Chronic obstructive pulmonary disease, unspecified (8) Sepsis Current visit: Yes Status: Acute Diagnosed based on persistent tachycardia and elevated white blood cell count as well as source of infection complicated UTI. Lactic acid was within normal limits. We will treat him with IV ceftriaxone, follow-up urine culture, follow-up cultures sent from the emergency alanis. The fluids were administered. We will monitor vital signs closely. Qualifiers: Sepsis type: sepsis due to unspecified organism Qualified Code(s): A41.9 - Sepsis, unspecified organism Internal Medicine - H&P: HPI Chief complaint: Nausea and vomiting Admitted From: Emergency Dept Plans for Post Hospital Care: Home History of present illness: Mr. Masterson is a 71 year old male with past medical history of hypertension, congestive heart failure, DJD, asthma and COPD who was brought by EMS for evaluation of nausea and vomiting. He reports 3 days of worsening nausea, yesterday he started vomiting. This morning he reported severe, sharp lower abdominal pain worse with sitting up associated with urinary incontinence, difficulty urinating and nausea. Workup in the emergency department was pertinent for a positive urinalysis for which he received antibiotic treatment and was referred for admission. Review of systems: Positive for chronic pain secondary to DJD, urinary incontinence, chronic cough and shortness of breath secondary to COPD. The remainder of a 10 point review of systems was negative. Past medical history as above Family history: Patient's father suffered with diabetes and of myocardial infarction. Social history: He lives at home. He has difficulty ambulating, uses canes and wheelchair. He has a remote history of smoking, quit more than 25 years ago, no current alcohol use. Denies IV drug use. Past Med Surg Social Fam HX - Past Medical History Medical history: arthritis, asthma, CHF, diabetes, hypertension Psychiatric history: no psych history - Social History Smoking Status: Former smoker Smokeless Tobacco Status: Yes Alcohol use: none Drug use: none - Family History Father Family Member Ethnicity: Non- Living Status: Hx Family Cardiac Disorders: Yes Hx Family Endocrine Disorder: Yes Hx Family Neurologic Disorders: Yes Internal Medicine - H&P: Meds Albuterol Neb [Proventil Neb] 2.5 mg IH TID PRN 02/26/17 [History] Albuterol Sulfate [Ventolin Hfa] 2 puff IH Q4H PRN 02/26/17 [History] Budesonide Neb [Pulmicort Neb] 0.5 mg IH BID 02/26/17 [History] Clotrimazole 1% CRM [Lotrimin 1%] 1 appl TP BID 02/26/17 [History] Enalapril/Hydrochlorothiazide [Vaseretic 10-25 mg Tablet] 1 each PO BID [History] Formoterol Fumarate [Perforomist] 20 mcg IH BID 02/26/17 [History] Hydrocortisone 2.5% CREAM [Cortaid] 1 appl TP BID 02/26/17 [History] Metformin HCl [Metformin HCl ER] 1,000 mg PO BID 02/26/17 [History] Simvastatin [Zocor] 40 mg PO HS 02/26/17 [History] Metoprolol Succinate 100 mg PO DAILY 05/11/17 [History] 3 Allergy/AdvReac Type Severity Reaction Status Date / Time No Known Allergies Allergy Verified 05/11/17 09:09 All Systems PM: A 10-system review of systems was performed and is negative for pertinent findings except as documented above in the HPI. - Constitutional Vitals: Temp Pulse Resp BP Pulse Ox 97.9 F 114 20 112/49 95 05/11/17 05:04 05/11/17 08:30 05/11/17 09:24 05/11/17 09:24 05/11/17 08:30 General appearance: Present: A&O X 3, no acute distress - Eye Eye exam: Present: PERRL, conjuntiva pink, sclera anicteric Pupils: Present: PERRL - Respiratory Respiratory exam: Present: CTAB. Absent: accessory muscle use, rales, rhonchi, wheezes - Cardiovascular Cardiovascular exam: Present: RRR, +S1, +S2. Absent: diastolic murmur, gallop, rubs, systolic murmur - GI/Abdominal GI/Abdominal exam: Present: hernia (Large ventral abdominal hernia), normal bowel sounds, soft, no peritoneal signs. Absent: distended, tenderness - Extremities Exam Extremities exam: Present: pedal edema (Chronic stasis skin changes of the lower extremities), warm, radial pulses palpable and symmetrical. Absent: calf tenderness, cyanotic - Neurological Exam Neurological exam: Present: CN II-XII intact, oriented X3. Absent: facial droop , speech deficit - Skin Skin exam: Present: dry, intact Internal Med - H&P Results - Labs CBC & Chem 7: 05/11/17 05:20 05/11/17 05:20 - Impressions CT abdomen and pelvis reviewed by myself: There is moderate left-sided hydronephrosis and hydroureter, contrast is present throughout both the ureters and prevents visualization of radio-opaque stones. There is a large ventral hernia. No evidence of bowel obstruction. Urinary bladder with thickened wall , decompressed with a Rojas catheter present.
[2017-05-11] MEDS ORDERED: Ondansetron 4 MG/2 ML VIAL IVP PRN (10:11)
[2017-05-11] MEDS ORDERED: Naloxone 0.4 MG/ML INJ IVP PRN (10:11)
[2017-05-11] MEDS ORDERED: *HR* HYDROcodone/Acet 5/325 mg TABLET PO PRN (10:11)
[2017-05-11] MEDS ORDERED: Acetaminophen 325 MG TABLET PO PRN (10:11)
[2017-05-11] MEDS ORDERED: Albuterol 2.5 MG/3 ML NEBULIZER IH PRN (10:19)
[2017-05-11] MEDS ORDERED: D5% in Water 1,000 ML IVC PRN (10:20)
[2017-05-11] MEDS ORDERED: *HR* Dextrose 50 % in Water (Syg) 50 ML SYRINGE IVP PRN (10:20)
[2017-05-11] MEDS ORDERED: Dextrose Gel 15 GM PO PRN ×2 (10:20)
[2017-05-11] MEDS: 0.9 % Sodium Chloride 1,000 ML IVC SCH (11:42)
[2017-05-11] MEDS: Insulin LISPRO 300 UNITS/3 ML VIAL SQ SCH ×2 (11:55→16:35)
[2017-05-11] MEDS: Ipratropium/Albuterol Neb 3 ML IH SCH ×2 (16:05→20:56)
[2017-05-11] MEDS: Budesonide Neb 0.5 MG/2 ML IH SCH (20:56)
[2017-05-11] MEDS: Clotrimazole 1% CRM 15 GM TUBE TP SCH (21:25)
[2017-05-11] MEDS: (Formoterol Fumarate [Perforomist] 20 MCG) IH SCH (21:25)
[2017-05-12] MEDS: 0.9 % Sodium Chloride 1,000 ML IVC SCH (02:00)
[2017-05-12] MEDS: Ipratropium/Albuterol Neb 3 ML IH SCH ×5 (03:01→22:09)
[2017-05-12 03:26] LABS: Basophils # 0.1 K/mcL (0.0-0.2); Basophils % 0.8 %; Eosinophils # 0.5 K/mcL (0.0-0.6); Eosinophils % 7.7 %; Hematocrit 35.5 % (37.5-50.1); Immature Granulocytes % 0.7 % (0-4); Lymphocytes % 22.7 %; Mean Corpuscular HGB Conc 32.7 g/dL (31.6-35.5); Mean Corpuscular Volume 85.7 fL (83.0-100.0); Mean Platelet Volume 8.4 fL (9.4-12.4); Monocytes # 0.4 K/mcL (0.0-1.3); Monocytes % 7.4 %; Neutrophils # 3.6 K/mcL (1.6-8.9); Platelet Count 173 K/mcL (140-400); Red Blood Count 4.14 M/mcL (4.19-5.50); Red Cell Distribution Width 13.3 % (11.5-14.5); Segmented Neutrophils % 60.7 %
[2017-05-12 03:31] LABS: Hemoglobin 11.6 g/dL (12.9-16.9); Lymphocytes # 1.3 K/mcL (0.6-4.6)
[2017-05-12 03:42] LABS: BUN/Creatinine Ratio 23 (6-26); Calcium 8.5 mg/dL (8.6-10.8); Carbon Dioxide 28 mEq/L (19-29); Chloride 100 mEq/L (98-109); Glucose 102 mg/dL (70-99); Magnesium 1.6 mg/dL (1.6-2.6); Osmolality,Calculated 282 (280-300); Potassium 3.5 mEq/L (3.5-4.5); Sodium 135 mEq/L (136-145); eGFR For African Americans > 60 (> 60); eGFR For Non-African Americans > 60 (> 60)
[2017-05-12 03:43] LABS: Blood Urea Nitrogen 17 mg/dL (8-26)
[2017-05-12] MEDS: *HR* Enoxaparin 40 MG/0.4 ML SYRINGE SQ SCH (04:59)
[2017-05-12] MEDS: Insulin LISPRO 300 UNITS/3 ML VIAL SQ SCH ×3 (08:18→16:38)
[2017-05-12] MEDS: Metoprolol XL (24 HR) Succ 50 MG TAB.ER.24H PO SCH (08:19)
[2017-05-12] MEDS: (Formoterol Fumarate [Perforomist] 20 MCG) IH SCH (08:20)
[2017-05-12] MEDS: Clotrimazole 1% CRM 15 GM TUBE TP SCH ×2 (08:21→22:00)
[2017-05-12] MEDS: Budesonide Neb 0.5 MG/2 ML IH SCH ×3 (11:08→22:09)
--- NOTE | 2017-05-12 14:07 | Internal Med Progress Note ---
Date of Encounter: 05/12/17 Time of Encounter: 09:30 - Assessment and plan (1) Sepsis Current Visit: Yes Status: Acute Assessment and plan: sepsis is resolving. Leukocytosis has resolved. Blood cultures so far negative. Urine cultures are currently pending. Continue current antibiotics. Moderate risk for complications. Qualifiers: Sepsis type: sepsis due to unspecified organism Qualified Code(s): A41.9 - Sepsis, unspecified organism (2) Acute cystitis with hematuria Current Visit: Yes Status: Acute Assessment and plan: Management as above. Continue current antibiotics. (3) Acute kidney injury Current Visit: Yes Status: Acute (4) Complicated UTI (urinary tract infection) Current Visit: Yes Status: Acute (5) COPD (chronic obstructive pulmonary disease) Current Visit: Yes Status: Chronic Assessment and plan: Not in acute exacerbation. Continue bronchodilators as needed Qualifiers: COPD type: unspecified COPD Qualified Code(s): J44.9 - Chronic obstructive pulmonary disease, unspecified (6) Degenerative joint disease Current Visit: Yes Status: Chronic Assessment and plan: Pain well controlled today. Continue home medications including [place] and Tylenol Qualifiers: Osteoarthritis location: multiple joints Osteoarthritis type: primary Qualified Code(s): M15.0 - Primary generalized (osteo)arthritis (7) Diabetes mellitus Current Visit: Yes Status: Chronic Assessment and plan: Blood sugars are fairly controlled. Continue current insulin regimen Qualifiers: Diabetes mellitus type: type 2 Diabetes mellitus complication status: with skin complications Diabetes mellitus complication detail: with other skin complication Diabetes mellitus continuous churn buttermaker insulin use: without fpc use Qualified Code(s): E11.628 - Type 2 diabetes mellitus with other skin complications (8) DVT prophylaxis Current Visit: Yes Status: Acute Assessment and plan: With subcutaneous Lovenox (9) HTN (hypertension) Current Visit: Yes Status: Chronic Assessment and plan: Blood pressure is well controlled at this time Qualifiers: Hypertension type: essential hypertension Qualified Code(s): I10 - Essential (primary) hypertension - Subjective Interval history: Patient is doing better today. No fever overnight. Denies any abdominal pain. No chills. Still having some sediment in his Rojas catheter. - Constitutional Vitals: Temp Pulse Resp BP Pulse Ox 98.2 F 67 18 110/64 94 05/12/17 11:34 05/12/17 11:34 05/12/17 11:34 05/12/17 11:34 05/12/17 11:34 General appearance: Present: cooperative, A&O X 3, no acute distress, answers questions appropriately - Neck Neck exam general surgery: Present: supple, trachea midline. Absent: lymphadenopathy - Respiratory Respiratory exam: Present: CTAB. Absent: accessory muscle use, rales, rhonchi, wheezes - Cardiovascular Cardiovascular exam: Present: RRR, +S1, +S2. Absent: diastolic murmur, gallop, rubs, systolic murmur - GI/Abdominal GI/Abdominal exam: Present: normal bowel sounds, soft, no peritoneal signs. Absent: distended, tenderness - Extremities Exam Extremities exam: Present: warm, radial pulses palpable and symmetrical. Absent : calf tenderness, cyanotic, pedal edema - Neurological Exam Neurological exam: Present: alert, oriented X3, no focal deficits. Absent: facial droop, speech deficit - Skin Skin exam: Present: dry, intact Internal Medicine: Result - Labs CBC & Chem 7: 05/12/17 02:50 05/12/17 02:50 Labs: Short CBC 05/12/17 Range/Units 02:50 WBC 5.9 D (4.3-11.1) K/mcL Hgb 11.6 L D (12.9-16.9) g/dL Hct 35.5 L (37.5-50.1) % Plt Count 173 (140-400) K/mcL Neutrophils # 3.6 (1.6-8.9) K/mcL BMP 05/12/17 02:50 Sodium 135 L Potassium 3.5 Chloride 100 Carbon Dioxide 28 BUN 17 D Creatinine 0.74 Glucose 102 H Calcium 8.5 L Consult Discharge Plan - Plan Referrals: Mary Daniels MD [Partnered Physician] - 05/19/17 10:45 am (web request sent on 05/12/17)
--- NOTE | 2017-05-12 16:42 | Electrocardiograph Report ---
[place] [id number] Test Date: 2017-05-11 Pat Name: Richmond Masterson Department: 103 Room: 2A Gender: M Front Office Java Developer: SOLIS : 1945 Requested By: Temitope Sanchez Order Number: [id number] Reading MD: Jefferson Rushing MD Measurements Intervals Malin Rate: 114 P: 261 OK: 215 QRS: -71 QRSD: 112 T: 74 QT: 375 QTc: 443 Interpretive Statements PROBABLE SINUS RHYTHM WITH FIRST DEGREE AV BLOCK LEFT ANTERIOR FASCICULAR BLOCK Poor R wave progression Electronically Signed On 05-12-2017 16:40:17 EDT by Jefferson Rushing MD
[2017-05-13] MEDS: Ipratropium/Albuterol Neb 3 ML IH SCH ×3 (03:29→16:42)
[2017-05-13] MEDS: *HR* Enoxaparin 40 MG/0.4 ML SYRINGE SQ SCH (04:54)
[2017-05-13] MEDS: Insulin LISPRO 300 UNITS/3 ML VIAL SQ SCH ×3 (08:19→17:08)
[2017-05-13] MEDS: Clotrimazole 1% CRM 15 GM TUBE TP SCH (08:21)
[2017-05-13] MEDS: Metoprolol XL (24 HR) Succ 50 MG TAB.ER.24H PO SCH (08:21)
[2017-05-13] MEDS ORDERED: Lisinopril 20 MG TABLET PO SCH (09:00)
[2017-05-13] MEDS ORDERED: hydroCHLOROthiazide 25 MG TABLET PO SCH (09:00)
[2017-05-13] MEDS ORDERED: HYDROCHLOROTHIAZIDE PO SCH (09:00)
[2017-05-13] MEDS ORDERED: ENALAPRIL PO SCH (09:00)
[2017-05-13 11:22] VITALS: BP 164/74
[2017-05-13] MEDS: Budesonide Neb 0.5 MG/2 ML IH SCH (11:48)
[2017-05-13 12:00] LABS: Basophils % 0.7 %; Eosinophils # 0.7 K/mcL (0.0-0.6); Eosinophils % 12.3 %; Hematocrit 34.4 % (37.5-50.1); Hemoglobin 11.5 g/dL (12.9-16.9); Immature Granulocytes % 0.5 % (0-4); Lymphocytes # 1.2 K/mcL (0.6-4.6); Lymphocytes % 22.2 %; Mean Corpuscular HGB Conc 33.4 g/dL (31.6-35.5); Mean Corpuscular Hemoglobin 28.6 pg (28.0-33.3); Mean Corpuscular Volume 85.6 fL (83.0-100.0); Mean Platelet Volume 8.1 fL (9.4-12.4); Monocytes # 0.5 K/mcL (0.0-1.3); Monocytes % 8.4 %; Neutrophils # 3.1 K/mcL (1.6-8.9); Platelet Count 157 K/mcL (140-400); Red Blood Count 4.02 M/mcL (4.19-5.50); Red Cell Distribution Width 13.2 % (11.5-14.5); Segmented Neutrophils % 55.9 %
[2017-05-13 12:05] LABS: BUN/Creatinine Ratio 14 (6-26); Blood Urea Nitrogen 9 mg/dL (8-26); Calcium 8.3 mg/dL (8.6-10.8); Carbon Dioxide 27 mEq/L (19-29); Chloride 103 mEq/L (98-109); Glucose 103 mg/dL (70-99); Osmolality,Calculated 281 (280-300); Potassium 3.9 mEq/L (3.5-4.5); Sodium 136 mEq/L (136-145); eGFR For African Americans > 60 (> 60); eGFR For Non-African Americans > 60 (> 60)
[2017-05-13] MEDS ORDERED: Amoxicillin 500 MG CAPSULE PO SCH (15:15)
--- NOTE | 2017-05-13 15:51 | Discharge Summary ---
Date of Encounter: 05/13/17 Time of Encounter: 11:00 - Discharge Diagnosis (1) UTI (urinary tract infection) Priority: Primary Status: Acute Qualifiers: Urinary tract infection type: acute cystitis Hematuria presence: without hematuria Qualified Code(s): N30.00 - Acute cystitis without hematuria - Discharge Medications Prescriptions: Amoxicillin [Amoxil] 500 mg PO TID #21 capsule Home Medications: Albuterol Neb [Proventil Neb] 2.5 mg IH TID PRN 02/26/17 [History] Albuterol Sulfate [Ventolin Hfa] 2 puff IH Q4H PRN 02/26/17 [History] Budesonide Neb [Pulmicort Neb] 0.5 mg IH BID 02/26/17 [History] Clotrimazole 1% CRM [Lotrimin 1%] 1 appl TP BID 02/26/17 [History] Enalapril/Hydrochlorothiazide [Vaseretic 10-25 mg Tablet] 1 each PO BID [History] Formoterol Fumarate [Perforomist] 20 mcg IH BID 02/26/17 [History] Hydrocortisone 2.5% CREAM [Cortaid] 1 appl TP BID 02/26/17 [History] Metformin HCl [Metformin HCl ER] 1,000 mg PO BID 02/26/17 [History] Simvastatin [Zocor] 40 mg PO HS 02/26/17 [History] Metoprolol Succinate 100 mg PO DAILY 05/11/17 [History] Amoxicillin [Amoxil] 500 mg PO TID #21 capsule 05/13/17 [Rx] Allergies/Adverse Reactions: 3 Allergy/AdvReac Type Severity Reaction Status Date / Time No Known Allergies Allergy Verified 05/11/17 09:09 Date of admission: 05/11/17 11:13 Primary care physician: PCP NONE - Patient Status Disposition: Home Health Service Condition: Good - Discharge Instructions Follow Up With: Mary Daniels MD [Partnered Physician] - 05/19/17 10:45 am (web request sent on 05/12/17) Hospital course: Patient is a 71 year old male with past medical history significant for hypertension, congestive heart failure, DJD, asthma and COPD who presented to the ER on 05/11/17 with nausea and vomiting. Patient reported of 3 days of worsening nausea/ vomiting. This morning of admission, he reported severe, sharp lower abdominal pain worse with sitting up associated with urinary incontinence, difficulty urinating and nausea. In the ER, patient was found to have pyuria and was started on antibiotics for acute cystitis. Patient was admitted to the medical floor for management of acute cystitis. During patients hospital stay, sepsis was ruled out (SOFA score = 1), but treatment was continued for acute cystitis with IV ceftriaxone. Patients cultures grew group B strep and his IV antibiotic was switched to oral amoxicillin. Patient will be discharged to continue a seven-day course of amoxicillin and to follow up with primary care provider. - Time Spent with Patient Total time spent providing and/or coordinating discharge services: Less than 30 minutes - Constitutional Vitals: Temp Pulse Resp BP Pulse Ox 97.4 F L 76 18 164/74 95 05/13/17 11:20 05/13/17 11:20 05/13/17 14:36 05/13/17 11:20 05/13/17 14:36 General appearance: Present: cooperative, A&O X 3, no acute distress, answers questions appropriately - Cardiovascular Cardiovascular exam: Present: RRR, +S1, +S2. Absent: diastolic murmur, gallop, rubs, systolic murmur
--- NOTE | 2017-05-13 15:53 | Physician Discharge Referral ---
Home Health/Hosp Referral Info Transfer to: Home Health - Diagnosis (1) UTI (urinary tract infection) Status: Acute - Respiratory Orders Smoking Cessation: Smoking cessation has been advised. For more information, call the [place] Tobacco Quit Line at 8-424-IDHY-NOW. - Transfer Medications Prescriptions: Amoxicillin [Amoxil] 500 mg PO TID #21 capsule Home Medications: Albuterol Neb [Proventil Neb] 2.5 mg IH TID PRN 02/26/17 [History] Albuterol Sulfate [Ventolin Hfa] 2 puff IH Q4H PRN 02/26/17 [History] Budesonide Neb [Pulmicort Neb] 0.5 mg IH BID 02/26/17 [History] Clotrimazole 1% CRM [Lotrimin 1%] 1 appl TP BID 02/26/17 [History] Enalapril/Hydrochlorothiazide [Vaseretic 10-25 mg Tablet] 1 each PO BID [History] Formoterol Fumarate [Perforomist] 20 mcg IH BID 02/26/17 [History] Hydrocortisone 2.5% CREAM [Cortaid] 1 appl TP BID 02/26/17 [History] Metformin HCl [Metformin HCl ER] 1,000 mg PO BID 02/26/17 [History] Simvastatin [Zocor] 40 mg PO HS 02/26/17 [History] Metoprolol Succinate 100 mg PO DAILY 05/11/17 [History] Amoxicillin [Amoxil] 500 mg PO TID #21 capsule 05/13/17 [Rx] Allergies/Adverse Reactions: 3 Allergy/AdvReac Type Severity Reaction Status Date / Time No Known Allergies Allergy Verified 05/11/17 09:09 Certification: Further, I certify that my clinical findings support that this patient is homebound (i.e. absences from home require considerable and taxing effort and are for medical reasons or congregational services or infrequently or short duration when for other reasons) because: Homebound Reason: Leaving home requires considerable and taxing effort due to condition Attestation: My signature below is to certify that this patient is under my care and that I, or nurse practitioner, or a physician's surgical assistant certified working with me, has a face-to -face encounter with this patient.
[2017-05-13] MEDS ORDERED: FLUARIX QUAD 2017-18 36MOS UP/PF 0.5 ML SYRINGE IM ONE (16:22)
== END 2017-05-13 17:52 | disposition home health service (06) | DRG 872 ==
LOC: EMEROO 05:03 → 2ANU 05:03
PROVIDERS: ADMIT Internal Medicine; ATTEND Internal Medicine

== ENCOUNTER 2017-06-01 13:00 | Inpatient (IN) ==
[2017-06-01 13:36] LABS: Basophils % 0.4 %; Eosinophils # 0.7 K/mcL (0.0-0.6); Eosinophils % 7.2 %; Hematocrit 36.6 % (37.5-50.1); Hemoglobin 11.9 g/dL (12.9-16.9); Immature Granulocytes % 0.4 % (0-4); Immature Platelets 1.2 % (1.1-6.1); Lymphocytes # 0.7 K/mcL (0.6-4.6); Lymphocytes % 7.5 %; Mean Corpuscular HGB Conc 32.5 g/dL (31.6-35.5); Mean Corpuscular Hemoglobin 27.9 pg (28.0-33.3); Mean Corpuscular Volume 85.9 fL (83.0-100.0); Mean Platelet Volume 8.4 fL (9.4-12.4); Monocytes # 0.6 K/mcL (0.0-1.3); Neutrophils # 7.5 K/mcL (1.6-8.9); Platelet Count 245 K/mcL (140-400); Red Blood Count 4.26 M/mcL (4.19-5.50); Red Cell Distribution Width 13.6 % (11.5-14.5); Segmented Neutrophils % 78.5 %
[2017-06-01 13:48] LABS: BUN/Creatinine Ratio 10 (6-26); Blood Urea Nitrogen 6 mg/dL (8-26); Calcium 8.8 mg/dL (8.6-10.8); Carbon Dioxide 30 mEq/L (19-29); Chloride 97 mEq/L (98-109); Glucose 109 mg/dL (70-99); Osmolality,Calculated 276 (280-300); Potassium 3.7 mEq/L (3.5-4.5); Sodium 134 mEq/L (136-145); eGFR For African Americans > 60 (> 60); eGFR For Non-African Americans > 60 (> 60)
[2017-06-01] MEDS: Aspirin 81 MG TAB.CHEW PO ONE ×2 (14:24→14:33)
--- NOTE | 2017-06-01 14:24 | Emergency Department Note ---
Disposition Clinical Impression: Urinary retention Pulmonary embolism Qualifiers: Pulmonary embolism type: other Chronicity: unspecified Acute cor pulmonale presence: without acute cor pulmonale Qualified Code(s): I26.99 - Other pulmonary embolism without acute cor pulmonale Degenerative disc disease Qualifiers: Spinal region: lumbar Qualified Code(s): M51.36 - Other intervertebral disc degeneration, lumbar region HTN (hypertension) Qualifiers: Hypertension type: essential hypertension Qualified Code(s): I10 - Essential ( primary) hypertension Diabetes mellitus Qualifiers: Diabetes mellitus type: type 2 Diabetes mellitus complication status: with skin complications Diabetes mellitus complication detail: with other skin complication Diabetes mellitus jail insulin use: without jail use Qualified Code(s): E11.628 - Type 2 diabetes mellitus with other skin complications COPD (chronic obstructive pulmonary disease) Qualifiers: COPD type: unspecified COPD Qualified Code(s): J44.9 - Chronic obstructive pulmonary disease, unspecified Disposition: Admitted As Inpatient Condition: Good Time of Disposition: 16:47 SOB HPI - General Chief Complaint: ED Shortness of Breath/Dyspnea Stated Complaint: RADHA Time Seen by Provider: 06/01/17 13:07 Source: patient, EMS Mode of arrival: EMS Limitations: no limitations Nursing Notes Reviewed: Yes Vital Signs Reviewed: Yes - History of Present Illness 71-year-old male presented to the ED complaining of shortness of breath. States that is gone on for a couple days has worsened today which caused him to come in. Patient states he does have a history of COPD and asthma he does not use a CPAP machine at night but does use oxygen 4 L at night which has helped him breathe. Patient is bedbound he says due to arthritis in his back and limbs. He says he is unable to walk now. Patient had a catheter placed in the emergency department because he was unable to urinate for a few days approximately 3 weeks ago. He was supposed to follow up with urology but has not done so. Patient states he has no chest pain just this cough and shortness of breath. He says he has been able to cough up some sputum and says it is clear in color. He is complaining of leg swelling bases as chronic for him. Patient does have history of CHF but has not seen a model builder or been worked up by cardiology and a very long time. Patient had a stent placed approximately 10 years ago with 90% blockages and multiple arteries. Patient states he has not seen his primary care physician as he is unable to set one up. He was coming here hoping that we can help him with that. Patient is having no headaches, blurry vision, weakness pain or tingling on the arms or legs, abdominal pain, changes in bowel movements. No fevers or nausea or vomiting. - Related Data Home Medications Medication Instructions Recorded Confirmed Albuterol Neb [Proventil Neb] 2.5 mg IH TID PRN 02/26/17 06/01/17 Albuterol Sulfate [Ventolin Hfa] 2 puff IH Q4H PRN 02/26/17 06/01/17 Budesonide Neb [Pulmicort Neb] 0.5 mg IH BID 02/26/17 06/01/17 Clotrimazole 1% CRM [Lotrimin 1%] 1 appl TP BID 02/26/17 06/01/17 Enalapril/Hydrochlorothiazide 1 tab PO BID 02/26/17 06/01/17 [Vaseretic 10-25 mg Tablet] Formoterol Fumarate [Perforomist] 20 mcg IH BID 02/26/17 06/01/17 Hydrocortisone 2.5% CREAM [Cortaid] 1 appl TP BID 02/26/17 06/01/17 Metformin HCl [Metformin HCl ER] 1,000 mg PO BID 02/26/17 06/01/17 Simvastatin [Zocor] 40 mg PO HS 02/26/17 06/01/17 Metoprolol Succinate 50 mg PO BID 05/11/17 06/01/17 Previous Rx's Medication Instructions Recorded Rivaroxaban [Xarelto] 15 mg PO BID tablet 06/03/17 Allergies Allergy/AdvReac Type Severity Reaction Status Date / Time No Known Allergies Allergy Verified 05/19/17 02:39 Review of Systems: 10 point review of systems done and negative unless otherwise stated in history of present illness. All systems ED: reviewed and negative except as stated. Review of Systems: As Per HPI Past Medical History - Past Medical History Attestation: Yes The following information was validated with the patient. Medical history: Reports: arthritis, asthma, CHF, diabetes, hyperlipidemia, hypertension Psychiatric history: Reports: no psych history - Social History Smoking Status: Former smoker Smokeless Tobacco Status: Yes Alcohol use: Reports: none Drug use: Reports: none Physical Exam - General Limitations: no limitations General appearance: alert, in no apparent distress - Head Head exam: atraumatic, normocephalic, normal inspection - Eye Eye exam: Present: normal appearance, PERRL, EOMI - ENT ENT exam: normal exam, normal oropharynx, mucous membranes moist - Neck Neck exam: Present: normal inspection, full ROM, trachea midline - Chest Chest inspection: Present: normal inspection, symmetric chest wall rise - Respiratory Respiratory exam: Present: normal lung sounds bilaterally - Cardiovascular Cardiovascular exam: Present: regular rate, normal rhythm, normal heart sounds - Abdominal Exam Abdominal exam: Present: soft, Non-Tender. Absent: tenderness, distention, guarding, rebound, rigidity - Male exam: Present: normal testicular lie, phimosis. Absent: circumcised, penile swelling, erythema, inguinal hernia, inguinal lymphadenopathy, testicular tenderness, scrotal swelling - Extremities Exam Extremities exam: Present: normal inspection, full ROM, normal capillary refill , pedal edema. Absent: tenderness - Expanded Lower Extremity Exam Neurovascular/Tendon exam: Present: normal capillary refill. Absent: pulse deficit, motor deficit, sensory deficit, tendon deficit - Back Exam Back exam: Present: normal inspection, full ROM. Absent: tenderness, CVA tenderness (R), CVA tenderness (L) - Neurological Exam Neurological exam: Present: alert, oriented X3 - Skin Skin exam: Present: warm, dry, intact, normal color Course Course Narrative: 71-year-old male presents to the ED with a cough we are kind between the COPD exacerbation, CHF exacerbation, pneumonia causes of his issues really broad workup including CBC, BMP, troponin, BNP as well as a d-dimer. We will also get urinalysis. We will change out his old catheter as it is not very clean at this time and replaced with a new one and given her urinary sample from that. Will also get a chest x-ray and EKG. Patient's okay with this plan. We will give him aspirin and hold off on any other until we find out was causing his problem. - Reevaluation(s) Reevaluation #1: When the tech tried to place the catheter he said he is able to withdraw the catheter with ease but did notice some drainage and he was unable to reduce the foreskin but the catheter came out easily. When he tried to place a catheter He was unable to place it and they did notice he had a phimosis and drainage at the head of his penis. The foreskin was unable to be pulled back. This time I called Dr. Connelly the on-call urologist and he will come in to try and place a catheter and see the patient. Also this time her d-dimer came back showing an elevation in the 2000 so we will order a CT angiogram of his chest to see if there is any signs of pulmonary embolism. Time: 14:29 - Consultations Consultation #1: Contacted Dr. Connelly the on-call urologist who states he will see the patient in a few when he comes to round on his patients I said the patient's most likely being admitted he said he will see them either on the floor in the ED depending on whether out. Time: 14:30 Consultation #2: Spoke with the hospitalist Dr. Schreiber who agreed to admit the patient for pulmonary embolism and we started heparin. Time: 16:43 Vital Signs Temperature 99.1 F 06/01/17 13:13 Pulse Rate 111 06/01/17 13:13 Respiratory Rate 20 06/01/17 13:13 Blood Pressure 130/80 06/01/17 13:13 O2 Sat by Pulse Oximetry 96 06/01/17 13:13 Temperature 98.7 F 06/03/17 11:18 Pulse Rate 118 06/03/17 11:18 Respiratory Rate 17 06/03/17 11:18 Blood Pressure 124/62 06/03/17 11:18 O2 Sat by Pulse Oximetry 90 06/03/17 11:18 Oxygen Delivery Oxygen Delivery Nasal Cannula Shortness of Breath/Dyspnea - MDM Narrative Medical decision making narrative: 71-year-old male patient see ED complaining of shortness of breath and a cough going on for a few days and worsening today. Patient also had a Rojas in as placed proximate 3 weeks on the emergency department and he was post follow-up with urology but never did. At this time we contacted Dr. Connelly who had to come and replace the Rojas as we tried to replace it there was purulent drainage at the head of the penis and were unable to reduce the penis had through the foreskin were worried about phimosis. After talking Dr. Connelly he was not worried about any signs of phimosis and said the patient does not need antibiotics and just for him to follow up with urology. We did get basic labs which showed no abnormalities he had good renal function he did have an elevated d-dimer of 2002 aorta CTA which came back showing bilateral pulmonary embolisms at this time the radiologist called me and told me of the finding. We did do a bedside ultrasound of the heart and there was no signs of any right heart strain. At this time we started the patient on heparin patient was told of the findings and he agrees with this. Patient did have possible pulmonary infarct or aspiration pneumonia in the posterior lobes but due to the patient having no leukocytosis and no fever we felt this most likely is due to the infarction from the pulmonary embolism. Spoke with the hospitalist who agreed to admit the patient for further evaluation and treatment. He agreed to accept the patient. Patient is now admitted in stable condition Chest X-Ray 06/01/17 13:21 IMPRESSION: Chronic blunting of the left costophrenic sulcus is stable. No acute finding or significant interval change. D/ / Chas Barlow MD / Chas Barlow MD Interpreting Provider: Chas Barlow MD Chest CTA 06/01/17 14:15 IMPRESSION: Pulmonary embolus to the right lower lobe is noted as described above. This embolus is slightly eccentric suggesting possible early recanalization, possibly subacute. Possible nonacute small pulmonary embolus to the posterior left lower lobe. This is difficult to say with certainty. There is mild straightening of the interventricular septum. Correlate for clinical signs or symptoms of elevated right heart pressures. Worsening consolidative changes posterior lung bases may reflect developing pneumonia or aspiration. Pulmonary infarcts could have a similar appearance. Clinical correlation recommended. Left hilar adenopathy likely reactive. The findings recommendations of this case were discussed with Dr. Beltran at 4:18 p.m., 06/01/2017. D/ / 06/01/2017 16:17:16 Andrsé Carlson MD / aden Interpreting Provider: Andrés Carlson MD - Differential Diagnosis Likely: acute exacerbation of chronic obstructive airways disease, congestive heart failure, pneumonia, asthma with exacerbation, pulmonary embolism - Medical Records Medical records reviewed: Yes I reviewed the patient's medical records. - Lab Data Lab results reviewed: Yes I reviewed the patient's lab results. Result diagrams: 06/03/17 07:24 06/03/17 07:24 Lab Results 06/01/17 06/01/17 06/01/17 Range/Units 13:29 13:29 13:29 WBC 9.5 (4.3-11.1) K/mcL RBC 4.26 (4.19-5.50) M/mcL Hgb 11.9 L (12.9-16.9) g/dL Hct 36.6 L (37.5-50.1) % MCV 85.9 (83.0-100.0) fL MCH 27.9 L (28.0-33.3) pg MCHC 32.5 (31.6-35.5) g/dL RDW 13.6 (11.5-14.5) % Plt Count 245 (140-400) K/mcL MPV 8.4 L (9.4-12.4) fL Immature Gran % 0.4 (0-4) % Seg Neutrophils % 78.5 % Lymphocytes % 7.5 % Monocytes % 6.0 % Eosinophils % 7.2 % Basophils % 0.4 % Neutrophils # 7.5 (1.6-8.9) K/mcL Lymphocytes # 0.7 (0.6-4.6) K/mcL Monocytes # 0.6 (0.0-1.3) K/mcL Eosinophils # 0.7 H (0.0-0.6) K/mcL Basophils # 0.0 (0.0-0.2) K/mcL Immature Plt Fraction 1.2 (1.1-6.1) % PT (9.4-12.1) Seconds INR APTT (26.0-36.0) Seconds D-Dimer 2518 H (0-500) ng/mLFEU Sodium 134 L (136-145) mEq/L Potassium 3.7 (3.5-4.5) mEq/L Chloride 97 L (98-109) mEq/L Carbon Dioxide 30 H (19-29) mEq/L BUN 6 L (8-26) mg/dL Creatinine 0.58 L (0.72-1.25) mg/dL Est GFR ( Amer) > 60 (> 60) Est GFR (Non-Af Amer) > 60 (> 60) BUN/Creatinine Ratio 10 (6-26) Glucose 109 H (70-99) mg/dL POC Glucose (58-89) Calculated Osmolality 276 L (280-300) Lactic Acid (0.5-2.2) mmol/L Calcium 8.8 (8.6-10.8) mg/dL Troponin I (0-0.03) ng/mL B-Natriuretic Peptide (0-100) pg/mL Urine Color (Yellow) Urine Clarity (Clear) Urine pH (5.0-8.0) pH Units Ur Specific [place] (1.010-1.025) Urine Protein (Neg-Trace) mg/dL Urine Glucose (UA) (Normal) mg/dL Urine Ketones (Negative) mg/dL Urine Blood (Negative) Urine Nitrite (Negative) Urine Bilirubin (Negative) Urine Urobilinogen (Normal) mg/dL Ur Leukocyte Esterase (Negative) Urine Microscopic WBC (0-3) per hpf Ur Squamous Epith Cells (None-Few) per lpf Urine Bacteria (None-Few) per hpf Hyaline Casts (None-Few) per lpf Ur Culture Indicated? (NO) 06/01/17 06/01/17 06/01/17 Range/Units 13:29 13:29 13:29 WBC (4.3-11.1) K/mcL RBC (4.19-5.50) M/mcL Hgb (12.9-16.9) g/dL Hct (37.5-50.1) % MCV (83.0-100.0) fL MCH (28.0-33.3) pg MCHC (31.6-35.5) g/dL RDW (11.5-14.5) % Plt Count (140-400) K/mcL MPV (9.4-12.4) fL Immature Gran % (0-4) % Seg Neutrophils % % Lymphocytes % % Monocytes % % Eosinophils % % Basophils % % Neutrophils # (1.6-8.9) K/mcL Lymphocytes # (0.6-4.6) K/mcL Monocytes # (0.0-1.3) K/mcL Eosinophils # (0.0-0.6) K/mcL Basophils # (0.0-0.2) K/mcL Immature Plt Fraction (1.1-6.1) % PT (9.4-12.1) Seconds INR APTT (26.0-36.0) Seconds D-Dimer (0-500) ng/mLFEU Sodium (136-145) mEq/L Potassium (3.5-4.5) mEq/L Chloride (98-109) mEq/L Carbon Dioxide (19-29) mEq/L BUN (8-26) mg/dL Creatinine (0.72-1.25) mg/dL Est GFR ( Amer) (> 60) Est GFR (Non-Af Amer) (> 60) BUN/Creatinine Ratio (6-26) Glucose (70-99) mg/dL POC Glucose (58-89) Calculated Osmolality (280-300) Lactic Acid 0.8 (0.5-2.2) mmol/L Calcium (8.6-10.8) mg/dL Troponin I 0.01 (0-0.03) ng/mL B-Natriuretic Peptide 94 (0-100) pg/mL Urine Color (Yellow) Urine Clarity (Clear) Urine pH (5.0-8.0) pH Units Ur Specific [place] (1.010-1.025) Urine Protein (Neg-Trace) mg/dL Urine Glucose (UA) (Normal) mg/dL Urine Ketones (Negative) mg/dL Urine Blood (Negative) Urine Nitrite (Negative) Urine Bilirubin (Negative) Urine Urobilinogen (Normal) mg/dL Ur Leukocyte Esterase (Negative) Urine Microscopic WBC (0-3) per hpf Ur Squamous Epith Cells (None-Few) per lpf Urine Bacteria (None-Few) per hpf Hyaline Casts (None-Few) per lpf Ur Culture Indicated? (NO) 06/01/17 06/01/17 06/01/17 Range/Units 13:29 15:40 17:48 WBC (4.3-11.1) K/mcL RBC (4.19-5.50) M/mcL Hgb (12.9-16.9) g/dL Hct (37.5-50.1) % MCV (83.0-100.0) fL MCH (28.0-33.3) pg MCHC (31.6-35.5) g/dL RDW (11.5-14.5) % Plt Count (140-400) K/mcL MPV (9.4-12.4) fL Immature Gran % (0-4) % Seg Neutrophils % % Lymphocytes % % Monocytes % % Eosinophils % % Basophils % % Neutrophils # (1.6-8.9) K/mcL Lymphocytes # (0.6-4.6) K/mcL Monocytes # (0.0-1.3) K/mcL Eosinophils # (0.0-0.6) K/mcL Basophils # (0.0-0.2) K/mcL Immature Plt Fraction (1.1-6.1) % PT 14.3 H (9.4-12.1) Seconds INR 1.3 APTT 38.5 H (26.0-36.0) Seconds D-Dimer (0-500) ng/mLFEU Sodium (136-145) mEq/L Potassium (3.5-4.5) mEq/L Chloride (98-109) mEq/L Carbon Dioxide (19-29) mEq/L BUN (8-26) mg/dL Creatinine (0.72-1.25) mg/dL Est GFR ( Amer) (> 60) Est GFR (Non-Af Amer) (> 60) BUN/Creatinine Ratio (6-26) Glucose (70-99) mg/dL POC Glucose 90 H (58-89) Calculated Osmolality (280-300) Lactic Acid (0.5-2.2) mmol/L Calcium (8.6-10.8) mg/dL Troponin I (0-0.03) ng/mL B-Natriuretic Peptide (0-100) pg/mL Urine Color Dark Yellow (Yellow) Urine Clarity Cloudy A (Clear) Urine pH 6.5 (5.0-8.0) pH Units Ur Specific [place] 1.021 (1.010-1.025) Urine Protein Trace (Neg-Trace) mg/dL Urine Glucose (UA) Normal (Normal) mg/dL Urine Ketones Negative (Negative) mg/dL Urine Blood Moderate H (Negative) Urine Nitrite Negative (Negative) Urine Bilirubin Small H (Negative) Urine Urobilinogen Normal (Normal) mg/dL Ur Leukocyte Esterase Moderate H (Negative) Urine Microscopic WBC 30-50 H (0-3) per hpf Ur Squamous Epith Cells Many H (None-Few) per lpf Urine Bacteria None Seen (None-Few) per hpf Hyaline Casts Few (None-Few) per lpf Ur Culture Indicated? YES A (NO) - Radiology Data Chest X-Ray 06/01/17 13:21 IMPRESSION: Chronic blunting of the left costophrenic sulcus is stable. No acute finding or significant interval change. D/ / Chas Barlow MD / Chas Barlow MD Interpreting Provider: Chas Barlow MD Chest CTA 06/01/17 14:15 IMPRESSION: Pulmonary embolus to the right lower lobe is noted as described above. This embolus is slightly eccentric suggesting possible early recanalization, possibly subacute. Possible nonacute small pulmonary embolus to the posterior left lower lobe. This is difficult to say with certainty. There is mild straightening of the interventricular septum. Correlate for clinical signs or symptoms of elevated right heart pressures. Worsening consolidative changes posterior lung bases may reflect developing pneumonia or aspiration. Pulmonary infarcts could have a similar appearance. Clinical correlation recommended. Left hilar adenopathy likely reactive. The findings recommendations of this case were discussed with Dr. Beltran at 4:18 p.m., 06/01/2017. D/ / 06/01/2017 16:17:16 Andrés Carlson MD / aden Interpreting Provider: Andrés Carlson MD Echocardiogram 06/02/17 20:12 Impressions: Technically sub-optimal due to poor echocardiographic windows. Overall, left ventricular size and function was not well visualized. An accurate determination of function cannot be made. Grossly, the right ventricle appeared at least mildly dilated. Right ventricular function was grossly normal. The RV:LV ratio was grossly less than one. Valves were not well visualized. Grossly, no significant valve issues noted. Findings: Study Quality * Technically sub-optimal due to poor echocardiographic windows. ECG Findings * Normal sinus rhythm. Left Ventricle * Overall, left ventricular size and function was not well visualized. An accurate determination of function cannot be made. Right Ventricle * Grossly, the right ventricle appeared at least mildly dilated. Right ventricular function was grossly normal. The RV:LV ratio was grossly less than one. Left Atrium * Grossly, mildly dilated left atrium. Right Atrium * Grossly, moderately dilated right atrium. Interatrial Septum * Interatrial septum not well evaluated. Aortic Valve * Aortic valve not well visualized. * No aortic regurgitation. * No aortic stenosis. Mitral Valve * Mitral valve not well visualized. * No mitral regurgitation. * No mitral stenosis. Tricuspid Valve * Tricuspid valve not well visualized. * No tricuspid regurgitation. * No evidence of pulmonary hypertension identified. RVSP not well obtained due to visual quality and poor TR jet. Pulmonic Valve * Pulmonic valve not well visualized. Aorta * Normally sized aortic root. Pericardium * The pericardium appears normal. - EKG Data EKG attestation: Yes I reviewed and interpreted this EKG. EKG results narrative: EKG done at 1309 myself and the attending shows normal sinus rhythm at a rate of 83, SC interval to 26, QRS 117, QTC 4:15 with a leftward axis. There is no acute ST changes. No acute T-wave changes. There is a first-degree AV block. No signs of hypertrophy or heart strain. No signs of WPW Cipro goddess syndrome. This compared with an old EKG done 05/19/17 which has no acute changes and is very similar to the EKG done today. Attestation Statement - Attestation Attestation: I examined this patient and my medical decision-making was reviewed with the Resident Physician, Dr. Beltran. I agree with the documented findings, disposition and treatment plan as described except to the extent set forth below. Pt is a 71 yo wm, who is brought ot the ED today by EMS with c/o grad worsening SOB x 2 days. Pt with hx of multiple medical problems, including HTN, hyperlipidemia, CAD with prior stent placement, COPD on supple O2 at home, CHF. Pt is poorly groomed, in dirty clothes, with catheter that is leaking urine around the cath, with loose stool in area. Pt with tachycardia and hypoxia on RA. Pt denies any CP/press, no diaporesis, no LE pain or worsening swelling from baseline. No abd pain/flank pain. No F/C, no URI/cough. Pt's exam shows, poorly groomed wm who appears physcially debilitated; poorly groomed. Lungs with course breath sounds throughout, Heart is tachy and regular. Abd soft, NT/ND, no flank TTP. Pt with LE pitting edema, L>R with overlying dry skin. Remainder of exam wnl. Pt with EKG on arrival, unchanged from prior, no acute ischemia. CXR wnl, no acute findings. 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 Pt with labs drawn, and due to elev d-dimer had CTA chest. During ED course, due to leaking catheter, and purulent drainage from urethra, catheter was removed. Pt not circumsized, and subsequently had difficulty retracting foreskin to replace catheter. Notified by nursing, and I went in personally to attempt to place catheter, unable to place. Notified Urology, and Dr. Connelly came in to see pt in ED, and replaced catheter. Was not concerned with purulent drainage, and stated that pt would not require antibiotics. He will follow pt in hospital. Pt with CT showing PE, and possible pulm infacts. Started on heparin. Performed bedside US and no R heart strain seen. Pt with stable VS throughout ED course, and no signs of resp distress. O2 sats stable on supple O2 by NC. Likely due to recent immobilization, pt states he is now bedbound due to pain related to arthritis. Will likely need SS consult for home assistance based on presentation. D/W hospitalist, who accepted pt for admission.
--- NOTE | 2017-06-01 15:43 | Urology - Consult Note ---
Date of Encounter: 06/01/17 Time of Encounter: 15:41 - Assessment and Plan (1) Urinary retention Current Visit: Yes Status: Acute Assessment and plan: Patient was prepped and draped in normal sterile fashion. I was then able to place a 16-Leb[place] catheter into the patient's urethra through the unretracted foreskin. This provided some difficulty. Clear urine was returned. 10 mL of sterile water placed in balloon. Patient can follow-up with urology in 2 to 3 weeks to discuss long-term management of catheter. Urology CN:HPI Consult date: 06/01/17 Reason for consult Urology: Difficult Rojas Requesting physician: Eric Beltran History of present illness: Richmond is a 71-year-old male with a history of urinary retention 3 weeks ago were catheter was placed. Patient came back to the hospital today secondary to difficulty in breathing was found to have some discharge around the catheter. Catheter was removed and unable to be replaced. Patient failed to follow up with urology after last visit. Patient is bedbound secondary to what he says is back problems. Patient is not ambulatory at all. Past Med Surg Social Fam HX - Past Medical History Medical history: arthritis, asthma, CHF, diabetes, hyperlipidemia, hypertension Psychiatric history: no psych history - Social History Smoking Status: Former smoker Smokeless Tobacco Status: Yes Alcohol use: none Drug use: none - Family History Father Family Member Ethnicity: Non- Living Status: Hx Family Cardiac Disorders: Yes Hx Family Endocrine Disorder: Yes Hx Family Neurologic Disorders: Yes Medications and Allergies Albuterol Neb [Proventil Neb] 2.5 mg IH TID PRN 02/26/17 [History] Albuterol Sulfate [Ventolin Hfa] 2 puff IH Q4H PRN 02/26/17 [History] Budesonide Neb [Pulmicort Neb] 0.5 mg IH BID 02/26/17 [History] Clotrimazole 1% CRM [Lotrimin 1%] 1 appl TP BID 02/26/17 [History] Enalapril/Hydrochlorothiazide [Vaseretic 10-25 mg Tablet] 1 each PO BID [History] Formoterol Fumarate [Perforomist] 20 mcg IH BID 02/26/17 [History] Hydrocortisone 2.5% CREAM [Cortaid] 1 appl TP BID 02/26/17 [History] Metformin HCl [Metformin HCl ER] 1,000 mg PO BID 02/26/17 [History] Simvastatin [Zocor] 40 mg PO HS 02/26/17 [History] Metoprolol Succinate 100 mg PO DAILY 05/11/17 [History] Amoxicillin [Amoxil] 500 mg PO TID #21 capsule 05/13/17 [Rx] 3 Allergy/AdvReac Type Severity Reaction Status Date / Time No Known Allergies Allergy Verified 05/19/17 02:39 Review of Systems - Constitutional no chills - EENT Nose, mouth and throat: no dizziness - Cardiovascular no chest pain - Respiratory as per HPI - Gastrointestinal no abdominal pain - Genitourinary as per HPI - Musculoskeletal back pain - Integumentary no erythema Exam Initial Vital Signs Temp Pulse Resp BP Pulse Ox 99.1 F 111 20 130/80 96 06/01/17 13:13 06/01/17 13:13 06/01/17 13:13 06/01/17 13:13 06/01/17 13:13 - General physical appearance Present: well developed - Cardiovascular Cardiovascular exam IM: RRR - Abdomen Abdomen: Present: soft - Genitourinary other (Some mild amount discharge from the foreskin. Unable to retract foreskin ) Urology Results - Labs 06/01/17 13:29 06/01/17 13:29 Abnormal lab results Hgb 11.9 g/dL (12.9-16.9) L 06/01/17 13:29 Hct 36.6 % (37.5-50.1) L 06/01/17 13:29 MCH 27.9 pg (28.0-33.3) L 06/01/17 13:29 MPV 8.4 fL (9.4-12.4) L 06/01/17 13:29 Eosinophils # 0.7 K/mcL (0.0-0.6) H 06/01/17 13:29 D-Dimer 2518 ng/mLFEU (0-500) H 06/01/17 13:29 Sodium 134 mEq/L (136-145) L 06/01/17 13:29 Chloride 97 mEq/L (98-109) L 06/01/17 13:29 Carbon Dioxide 30 mEq/L (19-29) H 06/01/17 13:29 BUN 6 mg/dL (8-26) L 06/01/17 13:29 Creatinine 0.58 mg/dL (0.72-1.25) L 06/01/17 13:29 Glucose 109 mg/dL (70-99) H 06/01/17 13:29 Calculated Osmolality 276 (280-300) L 06/01/17 13:29 Diabetes panel 06/01/17 Range/Units 13:29 Sodium 134 L (136-145) mEq/L Potassium 3.7 (3.5-4.5) mEq/L Chloride 97 L (98-109) mEq/L Carbon Dioxide 30 H (19-29) mEq/L BUN 6 L (8-26) mg/dL Creatinine 0.58 L (0.72-1.25) mg/dL Glucose 109 H (70-99) mg/dL Calcium 8.8 (8.6-10.8) mg/dL Calcium panel 06/01/17 Range/Units 13:29 Calcium 8.8 (8.6-10.8) mg/dL Pituitary panel 06/01/17 Range/Units 13:29 Sodium 134 L (136-145) mEq/L Potassium 3.7 (3.5-4.5) mEq/L Chloride 97 L (98-109) mEq/L Carbon Dioxide 30 H (19-29) mEq/L BUN 6 L (8-26) mg/dL Creatinine 0.58 L (0.72-1.25) mg/dL Glucose 109 H (70-99) mg/dL Calcium 8.8 (8.6-10.8) mg/dL Adrenal panel 06/01/17 Range/Units 13:29 Sodium 134 L (136-145) mEq/L Potassium 3.7 (3.5-4.5) mEq/L Chloride 97 L (98-109) mEq/L Carbon Dioxide 30 H (19-29) mEq/L BUN 6 L (8-26) mg/dL Creatinine 0.58 L (0.72-1.25) mg/dL Glucose 109 H (70-99) mg/dL Calcium 8.8 (8.6-10.8) mg/dL All other labs normal. Consult Discharge Plan - Plan
[2017-06-01 15:49] LABS: Bilirubin,Urine Small (Negative); Blood,Urine Moderate (Negative); Clarity,Urine Cloudy (Clear); Color,Urine Dark Yellow (Yellow); Glucose,Urine (UA) Normal (Normal); Ketones,Urine Negative (Negative); Leukocyte Esterase,Urine Moderate (Negative); Nitrite,Urine Negative (Negative); PH,Urine 6.5 pH Units (5.0-8.0); Protein,Urine Trace mg/dL (Neg-Trace); Specific Gravity,Urine 1.021 (1.010-1.025); Urobilinogen,Urine Normal (Normal)
[2017-06-01 15:52] LABS: Bacteria,Urine None Seen per hpf (None-Few); Hyaline Casts,Urine Few per lpf (None-Few); Squamous Epithelial Cell,Urine Many per lpf (None-Few); WBC,Urine 30-50 per hpf (0-3)
[2017-06-01] MEDS ORDERED: *HR* Heparin 5,000 UNIT/ML VIAL IVP PRN ×2 (16:31)
[2017-06-01] MEDS ORDERED: *HR* Heparin 5,000 UNIT/ML VIAL IVP ONE (16:31)
[2017-06-01 16:46] LABS: INR 1.3; Prothrombin Time 14.3 Seconds (9.4-12.1)
[2017-06-01 16:48] LABS: Activated Partial Thrombo Time 38.5 Seconds (26.0-36.0)
[2017-06-01] MEDS: Heparin 25,000 UNIT/500 ML D5W 25,000 UNIT/500 ML MLS IVC SCH (18:08)
[2017-06-01] MEDS ORDERED: Acetaminophen 325 MG TABLET PO PRN (20:10)
[2017-06-01] MEDS ORDERED: Ondansetron 4 MG/2 ML VIAL IVP PRN (20:10)
[2017-06-01] MEDS ORDERED: Naloxone 0.4 MG/ML INJ IVP PRN (20:10)
[2017-06-01] MEDS ORDERED: D5% in Water 1,000 ML IVC PRN (20:16)
[2017-06-01] MEDS ORDERED: Dextrose Gel 15 GM PO PRN ×2 (20:16)
[2017-06-01] MEDS ORDERED: *HR* Dextrose 50 % in Water (Syg) 50 ML SYRINGE IVP PRN (20:16)
[2017-06-01] MEDS ORDERED: PERFOROMIST IH SCH (21:00)
[2017-06-01] MEDS: Insulin LISPRO 300 UNITS/3 ML VIAL SQ SCH (22:09)
--- NOTE | 2017-06-01 22:16 | Internal Med History&Physical ---
Date of Encounter: 06/01/17 Time of Encounter: 22:15 Assessment and Plan (1) Pulmonary embolism Current visit: Yes Status: Acute 1 patient experiencing increasing shortness of breath requiring oxygen supplementation. CT of chest indicative of pulmonary embolus to right lower lobe as well as a nonacute small pulmonary embolus to posterior left lower lobe. Patient is basically bedridden , which most likely contributed to the development of PE Patient was initiated on heparin 2 we will obtain cardiac echo 3 obtain lower extremity Dopplers for DVT 4 continuous cardiac monitoring 5 we will consult PT and OT to evaluate the patient-to get him more ambulatory Qualifiers: Pulmonary embolism type: other Chronicity: unspecified Acute cor pulmonale presence: without acute cor pulmonale Qualified Code(s): I26.99 - Other pulmonary embolism without acute cor pulmonale (2) Diabetes mellitus Current visit: Yes Status: Chronic 1 Accu-Cheks before meals and at bedtime with sliding scale insulin 2 diabetic diet 3 A1c Qualifiers: Diabetes mellitus type: type 2 Diabetes mellitus complication status: with skin complications Diabetes mellitus complication detail: with other skin complication Diabetes mellitus usp insulin use: without terminal operations manager use Qualified Code(s): E11.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 - Type 2 diabetes mellitus with other skin complications (3) COPD (chronic obstructive pulmonary disease) Current visit: Yes Status: Chronic 1 continue with oxygen titrated to maintain SPO2 greater than 92% bronchodilators Qualifiers: COPD type: unspecified COPD Qualified Code(s): J44.9 - Chronic obstructive pulmonary disease, unspecified (4) Urinary retention Current visit: Yes Status: Acute 1 on last admission patient did experience urinary retention Rojas catheter was placed he did not follow up with his neurologist catheter was replaced today in the ER per urology 2 patient to follow up as outpatient with urology concerning urinary retention (5) Debility Current visit: Yes Status: Acute Patient is basically bedridden and does not get out of bed secondary to chronic back pain. He will consult PT OT 2 also consult secondary social studies teacher for discharge planning -for home health or ECF placement Internal Medicine - H&P: HPI Chief complaint: SOB Admitted From: Emergency Dept Plans for Post Hospital Care: Home History of present illness: Mr. Masterson is a 71 year old male past medical history of diabetes COPD hypertension chronic back pain. According patient he has been experiencing increasing shortness of breath the past 2 days. Patient does have a history of COPD and does use 4 L of oxygen at night. He also uses albuterol treatments with little relief. Denies any cough or sputum production. He denies any chest pain nausea vomiting or diarrhea. He presented to the ER for the complaints of shortness of breath. Lab work was obtained d-dimer was elevated CT of chest was obtained which did reveal pulmonary embolus to his right lower lobe. Possible nonacute small pulmonary embolus to the posterior left lower lobe. Patient was started on heparin drip Patient is bedridden and very rarely gets out of the bed he does have swelling to his lower extremities. He denies any lower extremity pain. He was admitted to this hospital approximately 3 weeks ago for sepsis at that time he did have urinary retention and Rojas catheter was placed. He did not follow up with urology after discharge, in the ER it was noted he did have some drainage from the catheter. The catheter was removed and was unable to be replaced urology was consulted and Rojas was replaced. Patient has been admitted for further workup and evaluation. Presently patient appears to be hemodynamically stable. He denies any chest pain or shortness of breath at this time. I have reviewed this case with Dr. Elizondo who agrees with plan. Past Med Surg Social Fam HX - Past Medical History Medical history: arthritis, asthma, CHF, diabetes, hyperlipidemia, hypertension Psychiatric history: no psych history - Social History Smoking Status: Former smoker Smokeless Tobacco Status: Yes Alcohol use: none Drug use: none - Family History Father History Unknown: Yes Family Member Ethnicity: Non- Living Status: Hx Family Cardiac Disorders: Yes Hx Family Endocrine Disorder: Yes Hx Family Neurologic Disorders: Yes Internal Medicine - H&P: Meds Albuterol Neb [Proventil Neb] 2.5 mg IH TID PRN 02/26/17 [History] Albuterol Sulfate [Ventolin Hfa] 2 puff IH Q4H PRN 02/26/17 [History] Budesonide Neb [Pulmicort Neb] 0.5 mg IH BID 02/26/17 [History] Clotrimazole 1% CRM [Lotrimin 1%] 1 appl TP BID 02/26/17 [History] Enalapril/Hydrochlorothiazide [Vaseretic 10-25 mg Tablet] 1 tab PO BID 02/26/17 [History] Formoterol Fumarate [Perforomist] 20 mcg IH BID 02/26/17 [History] Hydrocortisone 2.5% CREAM [Cortaid] 1 appl TP BID 02/26/17 [History] Metformin HCl [Metformin HCl ER] 1,000 mg PO BID 02/26/17 [History] Simvastatin [Zocor] 40 mg PO HS 02/26/17 [History] Metoprolol Succinate 50 mg PO BID 05/11/17 [History] 3 Allergy/AdvReac Type Severity Reaction Status Date / Time No Known Allergies Allergy Verified 05/19/17 02:39 All Systems PM: A 10-system review of systems was performed and is negative for pertinent findings except as documented above in the HPI. - Constitutional Constitutional: no chills, no fever(s), no night sweats - EENT Eyes: no change in vision, no discharge, no pain, no photophobia Nose, mouth and throat: no dysphagia, no nasal discharge, no neck pain, no sore throat - Cardiovascular Cardiovascular ROS IM: no chest pain, no diaphoresis, no dyspnea, no lightheadedness, no palpitations, no syncope - Respiratory Respiratory: dyspnea, no cough, no wheezing, no excessive phlegm production - Gastrointestinal Gastrointestinal: no abdominal pain, no diarrhea, no hematemesis, no hematochezia, no melena, no nausea, no vomiting - Musculoskeletal Musculoskeletal ROS IM: back pain, no numbness, no tingling - Integumentary Integumentary IM: no rash, no unusual bruising - Neurological Neurological ROS: no confusion, no convulsions, no focal weakness, no numbness, no tingling, no tremor(s) - Hematologic/Lymphatic Hematologic/Lymphatic: no easy bruising - Constitutional Vitals: Temp Pulse Resp BP Pulse Ox 98.9 F 85 17 110/63 94 06/01/17 19:39 06/01/17 19:39 06/01/17 19:39 06/01/17 19:39 06/01/17 19:39 General appearance: Present: disheveled, A&O X 3, obese - Head Head exam: Present: atraumatic, normocephalic - Eye Eye exam: Present: PERRL, conjuntiva pink, sclera anicteric Pupils: Present: PERRL - Neck Neck exam general surgery: Present: supple, trachea midline. Absent: lymphadenopathy - Respiratory Respiratory exam: Present: CTAB. Absent: accessory muscle use, rales, rhonchi, wheezes - Cardiovascular Cardiovascular exam: Present: RRR, +S1, +S2. Absent: diastolic murmur, gallop, rubs, systolic murmur - GI/Abdominal GI/Abdominal exam: Present: normal bowel sounds, soft, no peritoneal signs. Absent: distended, tenderness - Extremities Exam Extremities exam: Present: warm, radial pulses palpable and symmetrical. Absent : calf tenderness, cyanotic, pedal edema - Neurological Exam Neurological exam: Present: CN II-XII intact, oriented X3, no focal deficits. Absent: pronater drift, facial droop, speech deficit - Skin Skin exam: Present: dry, intact Internal Med - H&P Results - Labs CBC & Chem 7: 06/01/17 13:29 06/01/17 13:29 Labs: Cardiac Enzymes 06/01/17 Range/Units 20:50 Troponin I 0.01 (0-0.03) ng/mL - EKG Data EKG shows normal: sinus rhythm - Diagnostic Studies Other Images Additional comments: Chest X-Ray 06/01/17 13:21 IMPRESSION: Chronic blunting of the left costophrenic sulcus is stable. No acute finding or significant interval change. D/ / Chas Barlow MD / Chas Barlow MD Interpreting Provider: Chas Barlow MD Chest CTA 06/01/17 14:15 IMPRESSION: Pulmonary embolus to the right lower lobe is noted as described above. This embolus is slightly eccentric suggesting possible early recanalization, possibly subacute. Possible nonacute small pulmonary embolus to the posterior left lower lobe. This is difficult to say with certainty. There is mild straightening of the interventricular septum. Correlate for clinical signs or symptoms of elevated right heart pressures. Worsening consolidative changes posterior lung bases may reflect developing pneumonia or aspiration. Pulmonary infarcts could have a similar appearance. Clinical correlation recommended. Left hilar adenopathy likely reactive. The findings recommendations of this case were discussed with Dr. Beltran at 4:18 p.m., 06/01/2017. D/ / 06/01/2017 16:17:16 Andrés Carlson MD / aden Interpreting Provider: Andrés Carlson MD
[2017-06-01] MEDS: Budesonide Neb 0.5 MG/2 ML IH SCH (22:28)
--- NOTE | 2017-06-01 23:26 | Event Note ---
Date of Encounter: 06/01/17 Time of Encounter: 23:00 Discussed with KISHOR and agree with assessment and plan. Continue heparin IV drip for PE and initiate workup with lower extremity Dopplers and echocardiogram. Continue to monitor on telemetry and consult for PT/OT. Urology already consulted for urinary retention.
[2017-06-02 06:40] LABS: Basophils # 0.1 K/mcL (0.0-0.2); Basophils % 0.6 %; Eosinophils # 0.7 K/mcL (0.0-0.6); Eosinophils % 7.7 %; Hematocrit 34.1 % (37.5-50.1); Hemoglobin 11.1 g/dL (12.9-16.9); Immature Granulocytes % 1.3 % (0-4); Lymphocytes # 0.8 K/mcL (0.6-4.6); Lymphocytes % 9.3 %; Mean Corpuscular HGB Conc 32.6 g/dL (31.6-35.5); Mean Corpuscular Hemoglobin 27.9 pg (28.0-33.3); Mean Corpuscular Volume 85.7 fL (83.0-100.0); Mean Platelet Volume 8.8 fL (9.4-12.4); Monocytes # 0.6 K/mcL (0.0-1.3); Monocytes % 6.9 %; Neutrophils # 6.4 K/mcL (1.6-8.9); Platelet Count 208 K/mcL (140-400); Red Blood Count 3.98 M/mcL (4.19-5.50); Red Cell Distribution Width 13.6 % (11.5-14.5); Segmented Neutrophils % 74.2 %
[2017-06-02 06:47] LABS: BUN/Creatinine Ratio 12 (6-26); Blood Urea Nitrogen 7 mg/dL (8-26); Calcium 8.3 mg/dL (8.6-10.8); Carbon Dioxide 29 mEq/L (19-29); Chloride 98 mEq/L (98-109); Glucose 107 mg/dL (70-99); Magnesium 1.3 mg/dL (1.6-2.6); Osmolality,Calculated 278 (280-300); Potassium 3.7 mEq/L (3.5-4.5); Sodium 135 mEq/L (136-145); eGFR For African Americans > 60 (> 60); eGFR For Non-African Americans > 60 (> 60)
[2017-06-02] MEDS: Budesonide Neb 0.5 MG/2 ML IH SCH ×2 (07:49→21:47)
[2017-06-02] MEDS: Heparin 25,000 UNIT/500 ML D5W 25,000 UNIT/500 ML MLS IVC SCH ×2 (08:27→21:28)
[2017-06-02] MEDS: Insulin LISPRO 300 UNITS/3 ML VIAL SQ SCH ×4 (08:29→21:13)
[2017-06-02] MEDS: Albuterol 2.5 MG/3 ML NEBULIZER IH SCH ×3 (10:33→21:47)
--- NOTE | 2017-06-02 12:17 | Internal Med Progress Note ---
Date of Encounter: 06/02/17 Time of Encounter: 11:35 - Assessment and plan (1) Pulmonary embolism Current Visit: Yes Status: Acute Assessment and plan: CTA chest consistent with PE in right lower lobe continue Heparin gtt for 24 hours and hematology evaluation requested for transition to oral anticoagulant agent. Patient may benefit from NOAC given bed bound/debilitated mobility status O2 supplementation as needed pain control will follow up 2D echo Qualifiers: Pulmonary embolism type: other Chronicity: unspecified Acute cor pulmonale presence: without acute cor pulmonale Qualified Code(s): I26.99 - Other pulmonary embolism without acute cor pulmonale (2) COPD (chronic obstructive pulmonary disease) Current Visit: Yes Status: Chronic Assessment and plan: Not in acute exacerbation continue home medications Qualifiers: COPD type: unspecified COPD Qualified Code(s): J44.9 - Chronic obstructive pulmonary disease, unspecified (3) Debility Current Visit: Yes Status: Chronic Assessment and plan: Patient reported to be bed bound at baseline secondary to chronic back pain PT/OT requested social media project manager for D/C planning (4) Diabetes mellitus Current Visit: Yes Status: Chronic Assessment and plan: continue sliding scale insulin algorithm monitor FS and BG ADA diet pt's HbA1C noted to be 5.0 however reports of being on Metformin at home. 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 Resting in bed and reports of feeling better compared to previous day. Denies any chest pain or shortness of breath. He reports of using home oxygen only at night. - Constitutional Vitals: Temp Pulse Resp BP Pulse Ox 98.4 F 85 17 118/63 91 06/02/17 11:16 06/02/17 11:16 06/02/17 11:16 06/02/17 11:16 06/02/17 11:16 General appearance: Present: disheveled, A&O X 3, morbidly obese, no acute distress, obese - Head Head exam: Present: atraumatic, normocephalic - Eye Eye exam: Present: conjuntiva pink, sclera anicteric - Respiratory Respiratory exam: Present: decreased breath sounds. Absent: respiratory distress, wheezes - Cardiovascular Cardiovascular exam: Present: RRR, +S1, +S2. Absent: diastolic murmur, gallop, rubs, systolic murmur - GI/Abdominal GI/Abdominal exam: Present: normal bowel sounds, soft, no peritoneal signs. Absent: distended, tenderness - Extremities Exam Extremities exam: Present: pedal edema, warm, radial pulses palpable and symmetrical. Absent: calf tenderness - Neurological Exam Neurological exam: Present: alert, oriented X3 - Psychiatric Psychiatric exam: Present: normal affect, normal mood Internal Medicine: Result - Labs CBC & Chem 7: 06/02/17 06:07 06/02/17 06:07 Labs: Short CBC 06/02/17 Range/Units 06:07 WBC 8.6 (4.3-11.1) K/mcL Hgb 11.1 L (12.9-16.9) g/dL Hct 34.1 L (37.5-50.1) % Plt Count 208 (140-400) K/mcL Neutrophils # 6.4 (1.6-8.9) K/mcL BMP 06/02/17 06:07 Sodium 135 L Potassium 3.7 Chloride 98 Carbon Dioxide 29 BUN 7 L Creatinine 0.59 L Glucose 107 H Calcium 8.3 L Cardiac Enzymes 06/01/17 06/02/17 Range/Units 20:50 06:07 Troponin I 0.01 0.00 (0-0.03) ng/mL - ABG Interpretation ABG results: PT/INR, D-dimer PT 14.3 Seconds (9.4-12.1) H 06/01/17 13:29 D-Dimer 2518 ng/mLFEU (0-500) H 06/01/17 13:29 Consult Discharge Plan - Plan Referrals: Saima Hernandez CNP [Partnered Physician] - 06/17/17 9:00 am (Please follow up as schedule..)
--- NOTE | 2017-06-02 15:06 | Electrocardiograph Report ---
[address] [address] Test Date: 2017-06-01 Pat Name: Richmond Masterson Department: 102 Room: 2A26 Gender: M Screen Cleaner: Giana : 1945 Requested By: Erci Beltran Order Number: [id number] Reading MD: Jefferson Rushing MD Measurements Intervals [place] Rate: 83 P: 67 TX: 226 QRS: -48 QRSD: 117 T: 68 QT: 376 QTc: 415 Interpretive Statements SINUS RHYTHM WITH FIRST DEGREE AV BLOCK MARKED LEFT AXIS DEVIATION Poor R wave progression Electronically Signed On 06-02-2017 15:04:30 EST by Jefferson Rushing MD
--- NOTE | 2017-06-02 15:13 | Oncology Inp Consult Note ---
Date of Encounter: 06/02/17 Time of Encounter: 17:00 Assessment and Plan (1) Pulmonary embolism Status: Acute Assessment and plan: Acute versus subacute pulmonary embolus right lower lobe possibly left lower lobe symptomatic with shortness of breath and currently on anticoagulation, hematology consulted for longer-term 90 coagulation, so appears to have left lower extremity ?thrombosis, doppler. results pending, and ambulatory much, recent hospitalization for infection possibly predisposed to clots. No prior/ family hx DVT. Consider out patient anticoagulation with xarelto and close monitoring of labs, CBCD, Cr GFR nl. Out patient f/u discussed with him, patient is agreeable with above plan of care. Qualifiers: Pulmonary embolism type: other Chronicity: unspecified Acute cor pulmonale presence: without acute cor pulmonale Qualified Code(s): I26.99 - Other pulmonary embolism without acute cor pulmonale - Data of Consult Requesting Physician: Irma Choudhary MD Primary Care Provider: Mary Daniels - Consult Narrative Reason for consult: PE History of present illness: Mr. Masterson is a 71 year old male with history of hypertension, congestive heart failure, degenerative joint disease, asthma, COPD, patient is not ambulatory much, recent hospitalization and discharge for urinary tract infection hospitalized with increasing shortness of breath and a CT angiogram had shown pulmonary embolus in the right lower lobe, possibly subacute. Possible subacute left posterior lower lobe emboli. Consolidative changes in the lung bases could be developing pneumonia or aspiration versus pulmonary infarct. COPD, mild bilateral hydronephrosis urinary bladder distention seen by urology. On IV heparin drip. Echo, dopplers --? Left lower extremity thrombosis. On anticoagulation. Patient denies any chest pain he denies calf discomfort, he has knee arthritis pain and lower ext swelling. No SOB at rest He does not have a primary care doctor and has not seen urology, he is status post antibiotics for acute cystitis. To manage his catheter. Rojas catheter draining dark urine. Past Med Surg Social Fam HX - Past Medical History Medical history: arthritis, asthma, CHF, diabetes, hyperlipidemia, hypertension Psychiatric history: no psych history - Social History Smoking Status: Former smoker Smokeless Tobacco Status: Yes Alcohol use: none Drug use: none - Family History Father History Unknown: Yes Family Member Ethnicity: Non- Living Status: Hx Family Cardiac Disorders: Yes Hx Family Endocrine Disorder: Yes Hx Family Neurologic Disorders: Yes Medications and Allergies Albuterol Neb [Proventil Neb] 2.5 mg IH TID PRN 02/26/17 [History] Albuterol Sulfate [Ventolin Hfa] 2 puff IH Q4H PRN 02/26/17 [History] Budesonide Neb [Pulmicort Neb] 0.5 mg IH BID 02/26/17 [History] Clotrimazole 1% CRM [Lotrimin 1%] 1 appl TP BID 02/26/17 [History] Enalapril/Hydrochlorothiazide [Vaseretic 10-25 mg Tablet] 1 tab PO BID 02/26/17 [History] Formoterol Fumarate [Perforomist] 20 mcg IH BID 02/26/17 [History] Hydrocortisone 2.5% CREAM [Cortaid] 1 appl TP BID 02/26/17 [History] Metformin HCl [Metformin HCl ER] 1,000 mg PO BID 02/26/17 [History] Simvastatin [Zocor] 40 mg PO HS 02/26/17 [History] Metoprolol Succinate 50 mg PO BID 05/11/17 [History] 3 Allergy/AdvReac Type Severity Reaction Status Date / Time No Known Allergies Allergy Verified 05/19/17 02:39 Review of systems: as in hpi Oncology - Exam - Constitutional Vitals: Temp Pulse Resp BP Pulse Ox 98.4 F 85 17 118/63 91 06/02/17 11:16 06/02/17 11:16 06/02/17 11:16 06/02/17 11:16 06/02/17 11:16 General appearance: obese - Head Head exam: Present: atraumatic - Eye Eye exam: Present: normal appearance, sclera anicteric - ENT ENT exam: Present: mucous membranes moist - Neck Neck exam: Present: full ROM - Respiratory Respiratory exam: Present: CTAB - Cardiovascular Cardiovascular exam: Present: +S1, +S2 - GI/Abdominal GI/Abdominal exam: Present: distended, normal bowel sounds, soft - Extremities Exam Extremities exam: Present: pedal edema - Neurological Exam Neurological exam: Present: alert, CN II-XII intact, oriented X3 - Psychiatric Psychiatric exam: Present: normal affect Oncology - Results Labs: Short CBC 06/02/17 Range/Units 06:07 WBC 8.6 (4.3-11.1) K/mcL Hgb 11.1 L (12.9-16.9) g/dL Hct 34.1 L (37.5-50.1) % Plt Count 208 (140-400) K/mcL Neutrophils # 6.4 (1.6-8.9) K/mcL BMP 06/02/17 06:07 Sodium 135 L Potassium 3.7 Chloride 98 Carbon Dioxide 29 BUN 7 L Creatinine 0.59 L Glucose 107 H Calcium 8.3 L Cardiac Enzymes 06/01/17 06/02/17 Range/Units 20:50 06:07 Troponin I 0.01 0.00 (0-0.03) ng/mL Consult Discharge Plan - Plan Referrals: Saima Hernandez CNP [Partnered Physician] - 06/17/17 9:00 am (Please follow up as schedule..)
[2017-06-02] MEDS: 0.9 % Sodium Chloride 1,000 ML IVC SCH (19:59)
[2017-06-02] MEDS: hydroCHLOROthiazide 25 MG TABLET PO SCH (21:30)
[2017-06-03] MEDS: Albuterol 2.5 MG/3 ML NEBULIZER IH SCH ×2 (04:34→10:24)
[2017-06-03] MEDS: 0.9 % Sodium Chloride 1,000 ML IVC SCH ×2 (05:34→05:39)
[2017-06-03 07:59] LABS: BUN/Creatinine Ratio 9 (6-26); Carbon Dioxide 28 mEq/L (19-29); Chloride 99 mEq/L (98-109); Glucose 105 mg/dL (70-99); Potassium 3.5 mEq/L (3.5-4.5); Sodium 133 mEq/L (136-145); eGFR For African Americans > 60 (> 60); eGFR For Non-African Americans > 60 (> 60)
[2017-06-03 08:00] LABS: Calcium 8.2 mg/dL (8.6-10.8); Magnesium 1.6 mg/dL (1.6-2.6); Osmolality,Calculated 274 (280-300); Phosphorous 3.3 mg/dL (2.3-4.7)
[2017-06-03 08:03] LABS: Basophils % 0.4 %; Eosinophils # 0.5 K/mcL (0.0-0.6); Eosinophils % 6.9 %; Hematocrit 34.8 % (37.5-50.1); Hemoglobin 11.1 g/dL (12.9-16.9); Immature Granulocytes % 0.4 % (0-4); Lymphocytes # 0.8 K/mcL (0.6-4.6); Lymphocytes % 11.1 %; Mean Corpuscular HGB Conc 31.9 g/dL (31.6-35.5); Mean Corpuscular Hemoglobin 27.9 pg (28.0-33.3); Mean Corpuscular Volume 87.4 fL (83.0-100.0); Mean Platelet Volume 8.9 fL (9.4-12.4); Monocytes # 0.5 K/mcL (0.0-1.3); Monocytes % 7.3 %; Neutrophils # 5.3 K/mcL (1.6-8.9); Platelet Count 177 K/mcL (140-400); Red Blood Count 3.98 M/mcL (4.19-5.50); Red Cell Distribution Width 13.5 % (11.5-14.5); Segmented Neutrophils % 73.9 %
[2017-06-03 08:14] LABS: Blood Urea Nitrogen 5 mg/dL (8-26)
[2017-06-03] MEDS: Insulin LISPRO 300 UNITS/3 ML VIAL SQ SCH ×2 (08:31→12:13)
[2017-06-03] MEDS: hydroCHLOROthiazide 25 MG TABLET PO SCH (08:32)
[2017-06-03] MEDS ORDERED: *HR* Rivaroxaban 15 MG TABLET PO SCH (10:15)
[2017-06-03] MEDS: Budesonide Neb 0.5 MG/2 ML IH SCH (10:24)
--- NOTE | 2017-06-03 10:31 | Discharge Summary ---
Date of Encounter: 06/03/17 Time of Encounter: 09:45 - Discharge Diagnosis (1) Pulmonary embolism Priority: Primary Status: Acute Qualifiers: Pulmonary embolism type: other Chronicity: unspecified Acute cor pulmonale presence: without acute cor pulmonale Qualified Code(s): I26.99 - Other pulmonary embolism without acute cor pulmonale (2) COPD (chronic obstructive pulmonary disease) Priority: Secondary Status: Chronic Qualifiers: COPD type: unspecified COPD Qualified Code(s): J44.9 - Chronic obstructive pulmonary disease, unspecified (3) Debility Priority: Secondary Status: Chronic (4) Diabetes mellitus Priority: Secondary Status: Chronic Qualifiers: Diabetes mellitus type: type 2 Diabetes mellitus complication status: with skin complications Diabetes mellitus complication detail: with other skin complication Diabetes mellitus fci insulin use: without computer terminal operator use Qualified Code(s): E11.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 - Type 2 diabetes mellitus with other skin complications (5) HTN (hypertension) Priority: Secondary Status: Chronic Qualifiers: Hypertension type: essential hypertension Qualified Code(s): I10 - Essential (primary) hypertension (6) Urinary retention Priority: Secondary Status: Chronic (7) Morbid obesity Priority: Secondary Status: Chronic - Discharge Medications Home Medications: Albuterol Neb [Proventil Neb] 2.5 mg IH TID PRN 02/26/17 [History] Albuterol Sulfate [Ventolin Hfa] 2 puff IH Q4H PRN 02/26/17 [History] Budesonide Neb [Pulmicort Neb] 0.5 mg IH BID 02/26/17 [History] Clotrimazole 1% CRM [Lotrimin 1%] 1 appl TP BID 02/26/17 [History] Enalapril/Hydrochlorothiazide [Vaseretic 10-25 mg Tablet] 1 tab PO BID 02/26/17 [History] Formoterol Fumarate [Perforomist] 20 mcg IH BID 02/26/17 [History] Hydrocortisone 2.5% CREAM [Cortaid] 1 appl TP BID 02/26/17 [History] Metformin HCl [Metformin HCl ER] 1,000 mg PO BID 02/26/17 [History] Simvastatin [Zocor] 40 mg PO HS 02/26/17 [History] Metoprolol Succinate 50 mg PO BID 05/11/17 [History] Rivaroxaban [Xarelto] 15 mg PO BID tablet 06/03/17 [Rx] Allergies/Adverse Reactions: 3 Allergy/AdvReac Type Severity Reaction Status Date / Time No Known Allergies Allergy Verified 05/19/17 02:39 Procedures/tests Complete & Pending: Procedures Performed prior 72 hours Category Date Time Status EV echocardiogram Routine Y 06/02/17 20:12 Completed EV venous imaging LE BI Routine Y 06/02/17 22:13 Completed Date of admission: 06/01/17 20:10 Primary care physician: Mary Daniels Consults: 06/01/17 22:37 Consult to Occupational Therapy [CONS] Routine Comment: Evaluate, develop and implement POC Reason for Consult: Debility Consult to Physical Therapy [CONS] Routine Comment: Evaluate, develop and implement POC Reason for Consult: Debility 06/01/17 22:38 Consult to C S S Representative [CONS] Routine Reason for SW Consult: Consult for discharge planning patient may need ECF placement 06/02/17 08:02 Consult to Oncology Hematology [CONS] Routine Consulting Provider: Marley Fisher Reason for Consult: new onset PE Call Completed: Yes Discharging clinician: Irma Choudhary Anticipated date of discharge: 06/03/17 - Patient Status Disposition: Home, Self-Care Condition: Good Functional capacity at discharge: bed bound Overall status at discharge: patient is back to baseline - Discharge Instructions Instructions: Rivaroxaban (By mouth) Follow Up With: Bhavesh Cross MD [Partnered Physician] - 06/17/17 9:30 am (Please follow up as schedule...) Saima Hernandez CNP [Partnered Physician] - 06/17/17 9:00 am (Please follow up as schedule..) Harry Starr MD [Partnered Physician] - Additional Instructions: Please follow up with urology, primary care physician, and hematology as per the listed appointments above. Xarelto 15mg twice a day with meals have been added to your home medications for the first 21 days and 20mg once a day thereafter. Xarelto increases your risk of bleeding, if you sustain a fall or have an acute episode of bleeding, please seek medical help immediately. Please resume all your home medications as prescribed by your primary care physician. - Diet and Activity Activity: resume usual activities as tolerated, wear oxygen at all times, wear oxygen at night Diet: diabetic diet, low fat, low cholesterol, low salt diet Hospital course: Mr. Masterson is a 71 year old male with PMH of DM, COPD, HTN, Chronic back pain, bed bound, and urinary retention who presented to the ER for acute onset of shortness of breath. He was found to have acute PE and DVT for which he was started on heparin gtt. He was followed by hematology and Xarelto was recommended. Patient's shortness of breath improved and has been saturating well on his home O2 [place]. He was also found to have indwelling moyer catheter due to urinary retention. He never followed up with urology as outpatient. Urology saw the patient and his moyer cath was replaced, outpatient follow up was recommended. Physical therapy was consulted however patient refused to participate in physical therapy and refused home health services. He is currently hemodynamically stable and will be discharged to home with Xarelto. He is to follow up with urology, hematology, and pcp after his discharge from the hospital. - Time Spent with Patient Total time spent providing and/or coordinating discharge services: Greater than 30 minutes - Constitutional Vitals: Temp Pulse Resp BP Pulse Ox 98.7 F 111 17 132/77 98 06/03/17 07:04 06/03/17 07:04 06/03/17 10:26 06/03/17 07:04 06/03/17 10:26 General appearance: Present: A&O X 3, morbidly obese, no acute distress, obese - Head Head exam: Present: atraumatic, normocephalic - Eye Eye exam: Present: conjuntiva pink, sclera anicteric - Respiratory Respiratory exam: Absent: respiratory distress, wheezes - Cardiovascular Cardiovascular exam: Present: RRR, +S1, +S2. Absent: diastolic murmur, gallop, rubs, systolic murmur - GI/Abdominal GI/Abdominal exam: Present: normal bowel sounds, soft, no peritoneal signs. Absent: distended, tenderness - Extremities Exam Extremities exam: Present: pedal edema, warm, radial pulses palpable and symmetrical. Absent: calf tenderness - Neurological Exam Neurological exam: Present: alert, oriented X3
[2017-06-03 11:19] VITALS: BP 124/62
== END 2017-06-03 15:10 | disposition home or self-care (01) | DRG 176 ==
LOC: 2ANU 13:00 → EMEROO 13:00 → 2ANU 17:25 → SUATTDRO 20:10
PROVIDERS: ADMIT Internal Medicine; ATTEND Internal Medicine

== ENCOUNTER 2017-09-10 17:31 | Observation (INO) ==
[2017-09-10] MEDS ORDERED: Fluconazole 100 MG TABLET PO ONE (18:12)
--- NOTE | 2017-09-10 18:32 | Emergency Department Note ---
Disposition Clinical Impression: Cellulitis Qualifiers: Site of cellulitis: trunk Site of cellulitis of trunk: back Qualified Code(s): L03.312 - Cellulitis of back [any part except buttock] Hematuria Qualifiers: Hematuria type: gross Qualified Code(s): R31.0 - Gross hematuria Disposition: Admitted As Inpatient Condition: Fair Reasons to Return/Additional Instructions: Patient is admitted as inpatient Forms: ED Satisfaction Letter Time of Disposition: 19:46 Male Urogenital HPI - General Chief complaint: ED Urogenital-Male Stated complaint: yeast infection on back, blood in urine Time Seen by Provider: 09/10/17 17:33 Source: EMS Mode of arrival: EMS Limitations: physical limitation Nursing Notes Reviewed: Yes Vital Signs Reviewed: Yes - History of Present Illness HPI Narrative: 71-year-old male presents to emergency department with chief complaint of hematuria as well as rash on his back. He states he symptoms began approximately 2 weeks ago. He recently had his Moyer catheter changed yesterday and has been noticing gross red blood since. He has not had this issue in the past. rash on his back is located diffusely across his entire back and extends to his right groin and to the buttock. He states that he is able to bathe regularly with the help with his [id number] and she has been using anti-fungal lotions and creams and it has been progressively worsening. He denies any symptoms of fevers, chills, nausea, vomiting, chest pain, shortness of breath. He has also noticed a thick white discharge coming out of his Moyer during this time. Pt Subjective Complaint: other (hematuria) Onset (ago): week(s) Duration: constant indwelling catheter Reports: discharge, hematuria - Related Data Home Medications Medication Instructions Recorded Confirmed Albuterol Neb [Proventil Neb] 2.5 mg IH TID PRN 02/26/17 06/01/17 Albuterol Sulfate [Ventolin Hfa] 2 puff IH Q4H PRN 02/26/17 06/01/17 Budesonide Neb [Pulmicort Neb] 0.5 mg IH BID 02/26/17 06/01/17 Clotrimazole 1% CRM [Lotrimin 1%] 1 appl TP BID 02/26/17 06/01/17 Enalapril/Hydrochlorothiazide 1 tab PO BID 02/26/17 06/01/17 [Vaseretic 10-25 mg Tablet] Formoterol Fumarate [Perforomist] 20 mcg IH BID 02/26/17 06/01/17 Hydrocortisone 2.5% CREAM [Cortaid] 1 appl TP BID 02/26/17 06/01/17 Metformin HCl [Metformin HCl ER] 1,000 mg PO BID 02/26/17 06/01/17 Simvastatin [Zocor] 40 mg PO HS 02/26/17 06/01/17 Metoprolol Succinate 50 mg PO BID 05/11/17 06/01/17 Previous Rx's Medication Instructions Recorded Rivaroxaban [Xarelto] 15 mg PO BID tablet 06/03/17 Allergies Allergy/AdvReac Type Severity Reaction Status Date / Time No Known Allergies Allergy Verified 07/01/17 14:59 All systems ED: reviewed and negative except as stated. Review of Systems: As Per HPI Past Medical History - Past Medical History Medical history: Reports: arthritis, asthma, CHF, diabetes, hyperlipidemia, hypertension Psychiatric history: Reports: no psych history - Social History Smoking Status: Former smoker Smokeless Tobacco Status: Yes Alcohol use: Reports: none Drug use: Reports: none Physical Exam - General Limitations: physical limitation General appearance: alert, in no apparent distress, obese - Head Head exam: normal inspection - Chest Chest inspection: Present: normal inspection, symmetric chest wall rise - Cardiovascular Cardiovascular exam: Present: regular rate, normal rhythm, normal heart sounds - Male exam: Present: urethral discharge (thick white mucus discharge in moyer. Gross hematuria present. ). Absent: lesions - Neurological Exam Neurological exam: Present: alert, oriented X3, normal gait - Psychiatric Psychiatric exam: Present: normal affect, normal mood - Skin Skin exam: Present: warm, intact, erythema (covering entirety of back. Skin sloughing present. ) Course Course Narrative: 1-year-old male presenting with a complaint of hematuria in his Moyer catheter as well as back rash. We will obtain CBC, BMP, UA and will attempt to flush the Moyer catheter. Vital Signs Temperature 97.7 F 09/10/17 17:33 Pulse Rate 84 09/10/17 17:33 Respiratory Rate 18 09/10/17 17:33 Blood Pressure 115/77 09/10/17 17:33 O2 Sat by Pulse Oximetry 95 09/10/17 17:33 Temperature 97.7 F 09/10/17 17:33 Pulse Rate 84 09/10/17 17:33 Respiratory Rate 18 09/10/17 17:33 Blood Pressure 115/77 09/10/17 17:33 O2 Sat by Pulse Oximetry 95 09/10/17 17:33 Oxygen Delivery Oxygen Delivery Room Air Urogenital-Male - MDM Narrative Medical decision making narrative: 1-year-old male presented with hematuria and rash which is located diffusely across the back. Rash has components of both fungal infection as well as a possible cellulitis. We will start on vancomycin and oral Diflucan. He will likely require admission for IV antibiotics as well as possible placement to a long-term care facility. This was discussed with the hospitalist, who agreed for admission. - Lab Data Result diagrams: 09/10/17 18:27 09/10/17 18:27 Lab Results 09/10/17 09/10/17 Range/Units 18:27 18:27 WBC 10.9 (4.3-11.1) K/mcL RBC 4.98 (4.19-5.50) M/mcL Hgb 13.3 (12.9-16.9) g/dL Hct 41.7 (37.5-50.1) % MCV 83.7 (83.0-100.0) fL MCH 26.7 L (28.0-33.3) pg MCHC 31.9 (31.6-35.5) g/dL RDW 15.0 H (11.5-14.5) % Plt Count 196 (140-400) K/mcL MPV 8.2 L (9.4-12.4) fL Immature Gran % 0.5 (0-4) % Seg Neutrophils % 73.1 % Lymphocytes % 9.5 % Monocytes % 6.6 % Eosinophils % 9.7 % Basophils % 0.6 % Neutrophils # 8.0 (1.6-8.9) K/mcL Lymphocytes # 1.0 (0.6-4.6) K/mcL Monocytes # 0.7 (0.0-1.3) K/mcL Eosinophils # 1.1 H (0.0-0.6) K/mcL Basophils # 0.1 (0.0-0.2) K/mcL Sodium 129 L (136-145) mEq/L Potassium 3.6 (3.5-5.1) mEq/L Chloride 92 L (98-107) mEq/L Carbon Dioxide 33 H (23-29) mEq/L BUN 8 (8-23) mg/dL Creatinine 0.47 L (0.70-1.30) mg/dL Est GFR ( Amer) > 60 (> 60) Est GFR (Non-Af Amer) > 60 (> 60) BUN/Creatinine Ratio 17 (6-26) Glucose 140 H (70-105) mg/dL Calculated Osmolality 269 L (280-300) Calcium 8.6 (8.6-10.3) mg/dL
[2017-09-10 18:37] LABS: Basophils # 0.1 K/mcL (0.0-0.2); Basophils % 0.6 %; Eosinophils # 1.1 K/mcL (0.0-0.6); Eosinophils % 9.7 %; Hematocrit 41.7 % (37.5-50.1); Hemoglobin 13.3 g/dL (12.9-16.9); Immature Granulocytes % 0.5 % (0-4); Lymphocytes % 9.5 %; Mean Corpuscular HGB Conc 31.9 g/dL (31.6-35.5); Mean Corpuscular Hemoglobin 26.7 pg (28.0-33.3); Mean Corpuscular Volume 83.7 fL (83.0-100.0); Mean Platelet Volume 8.2 fL (9.4-12.4); Monocytes # 0.7 K/mcL (0.0-1.3); Monocytes % 6.6 %; Platelet Count 196 K/mcL (140-400); Red Blood Count 4.98 M/mcL (4.19-5.50); Segmented Neutrophils % 73.1 %
--- NOTE | 2017-09-10 18:43 | Emergency Department Note ---
START Narrative - START START: I examined this patient and my medical decision-making was reviewed with the Resident Physician. I agree with the documented findings, disposition and treatment plan as described except to the extent set forth below. 71-year-old male presented to the ER with a back rash. On exam appears he has a significant candidiasis infection extending from the upper back all the way down to the buttocks. Patient is bedbound and states he gets daily baths from his family members. Onset 2 weeks ago. Getting worse. They have tried some topical antifungals without improvement. He denies any documented fevers. Patient has not seen a doctor in 4 months. I feel based on this rash and the extensive erythema of the entire back that we should admit the patient to start him on IV antibiotics for possible cellulitis as well as oral antifungals. We will also do a Rojas catheter irrigation is been having some blood. The catheter was exchanged yesterday. It is draining urine he states. He is not feeling his bladder is distended.
[2017-09-10 18:56] LABS: Calcium 8.6 mg/dL (8.6-10.3); Carbon Dioxide 33 mEq/L (23-29); Chloride 92 mEq/L (98-107); Potassium 3.6 mEq/L (3.5-5.1); Sodium 129 mEq/L (136-145)
[2017-09-10 19:01] LABS: BUN/Creatinine Ratio 17 (6-26); Blood Urea Nitrogen 8 mg/dL (8-23); Glucose 140 mg/dL (70-105); Osmolality,Calculated 269 (280-300); eGFR For Non-African Americans > 60 (> 60)
[2017-09-10] MEDS ORDERED: Piperacillin/Tazobactam 3.375 GM in Water for inj. (sterile) 20 ML IVP ONE (19:34)
[2017-09-10 19:43] LABS: Bilirubin,Urine Negative (Negative); Blood,Urine Large (Negative); Clarity,Urine Cloudy (Clear); Glucose,Urine (UA) Normal (Normal); Ketones,Urine Negative (Negative); Leukocyte Esterase,Urine Large (Negative); Nitrite,Urine Negative (Negative); Protein,Urine 100 mg/dL (Neg-Trace); Specific Gravity,Urine 1.021 (1.010-1.025); Urobilinogen,Urine Normal (Normal)
[2017-09-10 19:45] LABS: Bacteria,Urine Many per hpf (None-Few); RBC,Urine TNTC per hpf (0-3); Squamous Epithelial Cell,Urine Moderate per lpf (None-Few); WBC,Urine TNTC per hpf (0-3)
[2017-09-10 19:55] LABS: Color,Urine Brown (Yellow)
[2017-09-10] MEDS ORDERED: Aminoglycoside Consult 1 EACH MC ONE (20:01)
[2017-09-10 20:04] LABS: Hyaline Casts,Urine None Seen per lpf (None-Few)
--- NOTE | 2017-09-10 22:04 | Internal Med History&Physical ---
Date of Encounter: 09/10/17 Time of Encounter: 21:10 Assessment and Plan (1) Acute cystitis with hematuria Current visit: Yes Status: Acute Continue current antibiotics until urine cultures back. Code(s): N30.01 - Acute cystitis with hematuria (2) Hematuria Current visit: Yes Status: Acute Likely due to recent Rojas catheter trauma. Per pt. the visitng RN inflated the balloon while still in his urethra and he had excruciating pain and gross hematuria Consult Urology Antibiotics for UTI as noted above. Qualifiers: Hematuria type: gross Qualified Code(s): R31.0 - Gross hematuria Code(s): R31.9 - Hematuria, unspecified (3) Urinary retention Current visit: No Status: Chronic Chronic urinary retention with chronic indwelling Rojas catheter. Catheter placed in May 2017 and he has not had OP f/u due to apparent noncompliance Urology consulted for urethral trauma (4) Fungal rash of torso Current visit: No Status: Acute Wide spread rash presumed to be secondary to Deb Give Diflucan in ER Continue Diflucan and topical Clotrimazole treatment Possible superimposed cellulitis. Continue Vanc and Zosyn Wound care ordered. (5) Chronic pulmonary embolism Current visit: No Status: Chronic History of PE and VTE diagnosed in 2016. He was discharged on Xarelto but failed to continue treatment. A/C will not be started now given his acute bleeding, but will need to be addressed at discharge. Qualifiers: Pulmonary embolism type: other Acute cor pulmonale presence: without acute cor pulmonale Qualified Code(s): I27.82 - Chronic pulmonary embolism (6) Chronic asthma Current visit: No Status: Chronic Qualifiers: Asthma severity: unspecified severity Asthma complication type: unspecified Qualified Code(s): J45.909 - Unspecified asthma, uncomplicated (7) Diabetes mellitus Current visit: No Status: Chronic He states that after losing weight he no long takes oral antihyperglycemics or insulin. 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 Masterson is a 71 year old man with chronic urniary retention and a chronic indwelling Rojas catheter who presented in the ER c/o gross hematuria for two days. Apparently his Rojas catheter was changed by his visiting RN recently and he experience severe pain when she inflated the balloon. The balloon was deflated and advanced and reinflated per pt report. He reports that he began having hematuria shortly after this event. Reportedly purulent appearing material was draining around the catheter tonight. His UA is positive and he was started on Vanc and Zosyn. He denies fever, chills or other signs of sepsis but is continuously coughing and he has coarse lung sounds bilaterally. He has a wide spead rash on his back, buttocks, inguilnal fat folds, torso and uper extremities. The rash is erythematous and appears to be a Deb infection. He was being treated with topical Lotrimen at home and notes some improvement. The rash has been going on for approximately 6 weeks. He was given Diflucan in the ER. He also has not had f/u after the Rojas catheter was placed in May secondary to noncompliance and multiple social issues. He has no PCP either. He was diagnosed with a VTE and PE in May 2017 and was started on Xarelto which he discontinued after the first Rx ran out. He denies hemoptysis but is more sob than normal. He denies hemoptysis. Past Med Surg Social Fam HX - Past Medical History Medical history: arthritis, asthma, CHF, diabetes, hyperlipidemia, hypertension Psychiatric history: no psych history - Social History Smoking Status: Former smoker Smokeless Tobacco Status: Yes Alcohol use: none Drug use: none - Family History Father Family Member Ethnicity: Non- Living Status: Hx Family Cardiac Disorders: Yes Hx Family Endocrine Disorder: Yes Hx Family Neurologic Disorders: Yes Internal Medicine - H&P: Meds Albuterol Neb [Proventil Neb] 2.5 mg IH TID PRN 02/26/17 [History] Albuterol Sulfate [Ventolin Hfa] 2 puff IH Q4H PRN 02/26/17 [History] Budesonide Neb [Pulmicort Neb] 0.5 mg IH BID 02/26/17 [History] Clotrimazole 1% CRM [Lotrimin 1%] 1 appl TP BID 02/26/17 [History] Enalapril/Hydrochlorothiazide [Vaseretic 10-25 mg Tablet] 1 tab PO BID 02/26/17 [History] Formoterol Fumarate [Perforomist] 20 mcg IH BID 02/26/17 [History] Hydrocortisone 2.5% CREAM [Cortaid] 1 appl TP BID 02/26/17 [History] Metformin HCl [Metformin HCl ER] 1,000 mg PO BID 02/26/17 [History] Simvastatin [Zocor] 40 mg PO HS 02/26/17 [History] Metoprolol Succinate 50 mg PO BID 05/11/17 [History] Rivaroxaban [Xarelto] 15 mg PO BID tablet 06/03/17 [Rx] 3 Allergy/AdvReac Type Severity Reaction Status Date / Time No Known Allergies Allergy Verified 07/01/17 14:59 All Systems PM: A 10-system review of systems was performed and is negative for pertinent findings except as documented above in the HPI. - Constitutional Vitals: Temp Pulse Resp BP Pulse Ox 98.1 F 87 15 136/67 96 09/10/17 20:45 09/10/17 20:45 09/10/17 20:45 09/10/17 20:45 09/10/17 20:45 Internal Med - H&P Results - Labs CBC & Chem 7: 09/10/17 18:27 09/10/17 18:27
[2017-09-11 06:15] LABS: INR 1.3; Prothrombin Time 14.3 Seconds (9.4-12.1)
[2017-09-11 06:18] LABS: Activated Partial Thrombo Time 34.9 Seconds (26.0-36.0)
[2017-09-11 06:20] LABS: Hemoglobin A1C 5.1 %
[2017-09-11 06:32] LABS: Basophils # 0.1 K/mcL (0.0-0.2); Basophils % 0.6 %; Eosinophils # 1.1 K/mcL (0.0-0.6); Eosinophils % 14.3 %; Hematocrit 39.4 % (37.5-50.1); Hemoglobin 12.6 g/dL (12.9-16.9); Immature Granulocytes % 0.5 % (0-4); Lymphocytes # 1.2 K/mcL (0.6-4.6); Lymphocytes % 15.8 %; Mean Corpuscular Hemoglobin 26.6 pg (28.0-33.3); Mean Corpuscular Volume 83.3 fL (83.0-100.0); Mean Platelet Volume 8.2 fL (9.4-12.4); Monocytes # 0.6 K/mcL (0.0-1.3); Monocytes % 7.8 %; Neutrophils # 4.8 K/mcL (1.6-8.9); Nucleated Red Blood Cells 0.3 /100 WBC (0); Platelet Count 200 K/mcL (140-400); Red Blood Count 4.73 M/mcL (4.19-5.50); Red Cell Distribution Width 14.7 % (11.5-14.5)
--- NOTE | 2017-09-11 06:58 | Urology History & Physical ---
Date of Encounter: 09/11/17 Time of Encounter: 06:54 Assessment and Plan (1) Acute cystitis with hematuria Current Visit: Yes Status: Acute Patient likely has significant bacterial colonization because of the long-term indwelling Rojas catheter. Follow culture and treat with antibiotics. Long- term antibiotics are not recommended as they will not resolve the colonization. Recommend treatment of symptomatic infections only. Patient likely had prostatic urethral trauma with recent catheter insertion. Hematuria has completely resolved. No further urologic intervention at this time.. I discussed with him that there are possible treatment options to help resolve his retention and remove his indwelling catheter. If he desires, he can follow as an outpatient in urology office. Patient has demonstrated noncompliance with her primary care office based on [facility] notes History of Present Illness Chief complaint: Hematuria HPI: Mr. Masterson is a 71 year old male reports that he has had an indwelling catheter for approximately 1 year[address] It is in place because of an episode of urinary retention. He states he has not had any formal urology evaluation. Hematuria at admission which may have been secondary to the Rojas catheter balloon being inflated in his prostatic urethra during a catheter change. Past Med Surg Social Fam HX - Past Medical History Medical history: arthritis, asthma, CHF, diabetes, hyperlipidemia, hypertension Psychiatric history: no psych history - Social History Smoking Status: Former smoker Smokeless Tobacco Status: Yes Alcohol use: none Drug use: none - Family History Father Family Member Ethnicity: Non- Living Status: Hx Family Cardiac Disorders: Yes Hx Family Endocrine Disorder: Yes Hx Family Neurologic Disorders: Yes Medications and Allergies Albuterol Neb [Proventil Neb] 2.5 mg IH TID PRN 02/26/17 [History] Albuterol Sulfate [Ventolin Hfa] 2 puff IH Q4H PRN 02/26/17 [History] Budesonide Neb [Pulmicort Neb] 0.5 mg IH BID 02/26/17 [History] Clotrimazole 1% CRM [Lotrimin 1%] 1 appl TP BID 02/26/17 [History] Enalapril/Hydrochlorothiazide [Vaseretic 10-25 mg Tablet] 1 tab PO BID 02/26/17 [History] Formoterol Fumarate [Perforomist] 20 mcg IH BID 02/26/17 [History] Hydrocortisone 2.5% CREAM [Cortaid] 1 appl TP BID 02/26/17 [History] Metformin HCl [Metformin HCl ER] 1,000 mg PO BID 02/26/17 [History] Simvastatin [Zocor] 40 mg PO HS 02/26/17 [History] Metoprolol Succinate 50 mg PO BID 05/11/17 [History] Rivaroxaban [Xarelto] 15 mg PO BID tablet 06/03/17 [Rx] 3 Allergy/AdvReac Type Severity Reaction Status Date / Time No Known Allergies Allergy Verified 07/01/17 14:59 Review of Systems - Constitutional fatigue, no chills, no fever(s) - EENT Nose, mouth and throat: no dizziness - Cardiovascular no chest pain - Respiratory no cough - Gastrointestinal no abdominal pain - Genitourinary hematuria - Musculoskeletal back pain - Integumentary no erythema - Neurological no confusion - Psychiatric no anxiety - Hematologic/Lymphatic easy bleeding - Allergic/Immunologic no throat swelling Exam Initial Vital Signs Temp Pulse Resp BP Pulse Ox 97.7 F 84 18 115/77 95 09/10/17 17:33 09/10/17 17:33 09/10/17 17:33 09/10/17 17:33 09/10/17 17:33 - General physical appearance Present: no distress, chronically ill - Eyes Present: PERRL - ENT Present: normal nares, no hearing loss - Neck Present: no masses, no lymphadenopathy - Respiratory Present: normal respiratory effort - Cardiovascular Cardiovascular exam IM: RRR - Abdomen Abdomen: Present: soft. Absent: masses, suprapubic tenderness - Integumentary Absent: disoriented - Neurologic Present: normal coordination. Absent: disoriented, confused - Additional Findings Rojas catheter draining clear urine. Some debris in the catheter tubing. Urology Results - Labs 09/11/17 04:49 09/10/17 18:27 Abnormal lab results Hgb 12.6 g/dL (12.9-16.9) L 09/11/17 04:49 MCH 26.6 pg (28.0-33.3) L 09/11/17 04:49 RDW 14.7 % (11.5-14.5) H 09/11/17 04:49 MPV 8.2 fL (9.4-12.4) L 09/11/17 04:49 Eosinophils # 1.1 K/mcL (0.0-0.6) H 09/11/17 04:49 Nucleated RBCs/100 WBC 0.3 /100 WBC (0) H 09/11/17 04:49 PT 14.3 Seconds (9.4-12.1) H 09/11/17 04:49 Sodium 129 mEq/L (136-145) L 09/10/17 18:27 Chloride 92 mEq/L (98-107) L 09/10/17 18:27 Carbon Dioxide 33 mEq/L (23-29) H 09/10/17 18:27 Creatinine 0.47 mg/dL (0.70-1.30) L 09/10/17 18:27 Glucose 140 mg/dL (70-105) H 09/10/17 18:27 POC Glucose 99 (58-89) H 09/10/17 23:57 Calculated Osmolality 269 (280-300) L 09/10/17 18:27 Urine Clarity Cloudy (Clear) A 09/10/17 19:20 Urine Protein 100 mg/dL (Neg-Trace) H 09/10/17 19:20 Urine Blood Large (Negative) H 09/10/17 19:20 Ur Leukocyte Esterase Large (Negative) H 09/10/17 19:20 Urine Microscopic RBC TNTC per hpf (0-3) H 09/10/17 19:20 Urine Microscopic WBC TNTC per hpf (0-3) H 09/10/17 19:20 Ur Squamous Epith Cells Moderate per lpf (None-Few) H 09/10/17 19:20 Urine Bacteria Many per hpf (None-Few) H 09/10/17 19:20 Ur Culture Indicated? YES (NO) A 09/10/17 19:20 Diabetes panel 09/11/17 Range/Units 04:49 Hemoglobin A1c 5.1 ( - 5.6) % All other labs normal.
[2017-09-11] MEDS: Fluconazole 100 MG TABLET PO SCH (08:35)
[2017-09-11] MEDS: Clotrimazole 1% CRM 15 GM TUBE TP SCH ×2 (08:51→20:26)
[2017-09-11 09:25] LABS: BUN/Creatinine Ratio 15 (6-26); Blood Urea Nitrogen 6 mg/dL (8-23); Calcium 8.5 mg/dL (8.6-10.3); Carbon Dioxide 30 mEq/L (23-29); Chloride 96 mEq/L (98-107); Glucose 155 mg/dL (70-105); Magnesium 1.8 mg/dL (1.6-2.6); Osmolality,Calculated 273 (280-300); Potassium 4.6 mEq/L (3.5-5.1); Sodium 131 mEq/L (136-145); eGFR For Non-African Americans > 60 (> 60)
[2017-09-11] MEDS: Ipratropium/Albuterol Neb 3 ML IH SCH ×3 (11:19→22:10)
[2017-09-11] MEDS: Levofloxacin 750 MG/150 ML 750 MG/150 ML BAG IVPB SCH (13:21)
[2017-09-11] MEDS ORDERED: Albuterol 2.5 MG/3 ML NEBULIZER IH PRN (13:54)
--- NOTE | 2017-09-11 15:36 | Internal Med Progress Note ---
Date of Encounter: 09/11/17 Time of Encounter: 09:30 - Assessment and plan (1) Hematuria Current Visit: Yes Status: Acute Assessment and plan: likely secondary to trauma during Rojas change at home; currently improved; Urology consult appreciated- no intervention; monitor Hb closely; Qualifiers: Hematuria type: gross Qualified Code(s): R31.0 - Gross hematuria (2) Hyponatremia Current Visit: Yes Status: Acute Assessment and plan: Likely due to diuretic use. Currently improving, serum sodium noted to be 131. (3) Complicated UTI (urinary tract infection) Current Visit: Yes Status: Acute Assessment and plan: Has indwelling Rojas catheter due to urinary retention. Catheter has been changed 2 days ago. Urinalysis shows hematuria, pyuria, large leukocyte esterase. Continue IV antibiotics-changed to Levaquin, follow up urine culture. Urology consult appreciated, recommend treatment only for symptomatic infections as patient can have colonization from indwelling Rojas catheter. (4) Fungal rash of torso Current Visit: Yes Status: Acute Assessment and plan: Patient states his rash is chronic although I did not find any documentation. Likely fungal dermatitis. Has been started on IV vancomycin and Zosyn, will change to IV Levaquin. Continue IV Diflucan and topical clotrimazole. Follow- up daily EKGs to monitor for prolonged QT. Supportive care. (5) Lumbar pain Current Visit: Yes Status: Chronic Assessment and plan: Does not use chronic pain medications. Supportive care. Fall precautions. Qualifiers: Chronicity: chronic Back pain laterality: unspecified Sciatica presence: unspecified whether sciatica present Qualified Code(s): M54.5 - Low back pain ; G89.29 - Other chronic pain (6) Pulmonary embolism Current Visit: Yes Status: Acute Assessment and plan: Was diagnosed with pulmonary embolism in May 2017, however noted to be noncompliant with most of his medications including anticoagulation with Xarelto. Reinforced the importance of compliance, he claims he has had no shortness of breath or any other problems with pulmonary embolism. We will restart Xarelto at discharge, hold for now due to hematuria. Patient reports difficulty with transportation and so has multiple missed visits to PCP and subspecialists. support services coordinator consult. Qualifiers: Pulmonary embolism type: other Chronicity: unspecified Acute cor pulmonale presence: without acute cor pulmonale Qualified Code(s): I26.99 - Other pulmonary embolism without acute cor pulmonale (7) Asthma Current Visit: Yes Status: Chronic Assessment and plan: Noted to have wheezing and rhonchi. Continue scheduled bronchodilators, supplemental oxygen as needed, inhaled corticosteroids. Qualifiers: Asthma severity: moderate Asthma persistence: persistent Asthma complication type: uncomplicated Qualified Code(s): J45.40 - Moderate persistent asthma, uncomplicated (8) COPD (chronic obstructive pulmonary disease) Current Visit: Yes Status: Chronic Qualifiers: COPD type: unspecified COPD Qualified Code(s): J44.9 - Chronic obstructive pulmonary disease, unspecified (9) Degenerative disc disease Current Visit: Yes Status: Chronic Qualifiers: Spinal region: lumbar Qualified Code(s): M51.36 - Other intervertebral disc degeneration, lumbar region (10) Diabetes mellitus Current Visit: Yes Status: Chronic Assessment and plan: Blood sugars noted to be well controlled. Continue Accu-Chek blood glucose monitoring with sliding scale insulin. Hemoglobin A1c noted to be 5.1%, not on home medications. Qualifiers: Diabetes mellitus type: type 2 Diabetes mellitus complication status: with skin complications Diabetes mellitus complication detail: with other skin complication Diabetes mellitus nursing home insulin use: without pharmacy scheduler use Qualified Code(s): E11.628 - Type 2 diabetes mellitus with other skin complications (11) HTN (hypertension) Current Visit: Yes Status: Chronic Qualifiers: Hypertension type: essential hypertension Qualified Code(s): I10 - Essential (primary) hypertension - Subjective Interval history: Improving hematuria; has diffuse rash on his back, which is not new per patient ; mostly bedbound, due to chronic back pain and spinal stenosis; - Constitutional Vitals: Temp Pulse Resp BP Pulse Ox 98.1 F 103 18 105/62 93 09/11/17 14:28 09/11/17 14:28 09/11/17 14:28 09/11/17 14:28 09/11/17 14:28 General appearance: Present: A&O X 3, answers questions appropriately - Respiratory Respiratory exam: Present: CTAB (coarse breath sounds B/L), rhonchi (B/L scattered rhonchi). Absent: accessory muscle use, rales, wheezes - Cardiovascular Cardiovascular exam: Present: RRR, +S1, +S2. Absent: diastolic murmur, gallop, rubs, systolic murmur - GI/Abdominal GI/Abdominal exam: Present: normal bowel sounds, soft, no peritoneal signs. Absent: distended, tenderness - Back Exam Additional comments: diffuse erythematous rash, dry flaky skin all over his back including buttocks, nontender, nonpruritic - Neurological Exam Neurological exam: Present: CN II-XII intact, oriented X3, no focal deficits ( decreased motor power B/L LE). Absent: pronater drift, facial droop, speech deficit Internal Medicine: Result - Labs CBC & Chem 7: 09/11/17 04:49 09/11/17 08:53 Labs: Short CBC 09/11/17 Range/Units 04:49 WBC 7.9 (4.3-11.1) K/mcL Hgb 12.6 L (12.9-16.9) g/dL Hct 39.4 (37.5-50.1) % Plt Count 200 (140-400) K/mcL Neutrophils # 4.8 (1.6-8.9) K/mcL BMP 09/11/17 08:53 Sodium 131 L Potassium 4.6 D Chloride 96 L Carbon Dioxide 30 H BUN 6 L Creatinine 0.41 L Glucose 155 H Calcium 8.5 L - ABG Interpretation ABG results: PT/INR, D-dimer PT 14.3 Seconds (9.4-12.1) H 09/11/17 04:49 Consult Discharge Plan - Plan Referrals: NONE,PCP [Primary Care Provider] -
[2017-09-11] MEDS: Budesonide Neb 0.5 MG/2 ML IH SCH (22:11)
[2017-09-12] MEDS: Ipratropium/Albuterol Neb 3 ML IH SCH ×4 (03:54→21:26)
[2017-09-12 04:22] LABS: Basophils % 0.5 %; Eosinophils % 15.7 %; Hematocrit 37.3 % (37.5-50.1); Hemoglobin 12.1 g/dL (12.9-16.9); Immature Granulocytes % 0.2 % (0-4); Lymphocytes # 1.3 K/mcL (0.6-4.6); Mean Corpuscular HGB Conc 32.4 g/dL (31.6-35.5); Mean Corpuscular Hemoglobin 26.7 pg (28.0-33.3); Mean Corpuscular Volume 82.3 fL (83.0-100.0); Mean Platelet Volume 8.2 fL (9.4-12.4); Monocytes # 0.5 K/mcL (0.0-1.3); Monocytes % 7.2 %; Neutrophils # 3.5 K/mcL (1.6-8.9); Platelet Count 173 K/mcL (140-400); Red Blood Count 4.53 M/mcL (4.19-5.50); Red Cell Distribution Width 14.7 % (11.5-14.5); Segmented Neutrophils % 56.4 %
[2017-09-12 04:46] LABS: BUN/Creatinine Ratio 14 (6-26); Blood Urea Nitrogen 6 mg/dL (8-23); Calcium 8.6 mg/dL (8.6-10.3); Carbon Dioxide 29 mEq/L (23-29); Chloride 96 mEq/L (98-107); Glucose 109 mg/dL (70-105); Osmolality,Calculated 270 (280-300); Potassium 3.8 mEq/L (3.5-5.1); Sodium 131 mEq/L (136-145); eGFR For Non-African Americans > 60 (> 60)
[2017-09-12] MEDS: Levofloxacin 750 MG/150 ML 750 MG/150 ML BAG IVPB SCH (09:51)
[2017-09-12] MEDS: Fluconazole 100 MG TABLET PO SCH (09:51)
[2017-09-12] MEDS: Clotrimazole 1% CRM 15 GM TUBE TP SCH (09:51)
[2017-09-12] MEDS: Budesonide Neb 0.5 MG/2 ML IH SCH ×2 (10:13→21:26)
--- NOTE | 2017-09-12 14:15 | Internal Med Progress Note ---
Date of Encounter: 09/12/17 Time of Encounter: 11:00 - Assessment and plan (1) Hematuria Current Visit: Yes Status: Resolved Assessment and plan: likely secondary to trauma during Rojas change at home; currently improved; Urology consult appreciated- no intervention; Hb stable at 12.1; financial services sales representative and case management on board. Patient has difficult social situation due to being bedbound, transportation issues, having no primary care provider for follow-up and prescription refills. At this time, home health services discharge the patient due to having no primary care provider. Plan for ECF placement. Qualifiers: Hematuria type: gross Qualified Code(s): R31.0 - Gross hematuria (2) Hyponatremia Current Visit: Yes Status: Acute Assessment and plan: Likely due to diuretic use. Stable at 131; will restart diuretics; (3) Complicated UTI (urinary tract infection) Current Visit: Yes Status: Acute Assessment and plan: Has indwelling Rojas catheter due to urinary retention. Urinalysis shows hematuria, pyuria, large leukocyte esterase. Preliminary urine culture grows gram-negative rods, enterococcus. Continue IV Levaquin, start IV vancomycin. Urology consult appreciated, recommend treatment at this time, and in the future only for symptomatic infections as patient can have colonization from indwelling Rojas catheter. (4) Fungal rash of torso Current Visit: Yes Status: Acute Assessment and plan: Likely fungal dermatitis. Continue IV Diflucan and topical clotrimazole. Follow-up daily EKGs to monitor for prolonged QT- corrected QT 417. Supportive care. (5) Lumbar pain Current Visit: Yes Status: Chronic Assessment and plan: Does not use chronic pain medications. Supportive care. Fall precautions. Qualifiers: Chronicity: chronic Back pain laterality: unspecified Sciatica presence: unspecified whether sciatica present Qualified Code(s): M54.5 - Low back pain ; G89.29 - Other chronic pain (6) Pulmonary embolism Current Visit: Yes Status: Acute Assessment and plan: Was diagnosed with pulmonary embolism in May 2017, however noted to be noncompliant with most of his medications including anticoagulation with Xarelto , due to having no primary care provider, transportation issues. Restart Xarelto at this time. Plan for ECF placement. Qualifiers: Pulmonary embolism type: other Chronicity: unspecified Acute cor pulmonale presence: without acute cor pulmonale Qualified Code(s): I26.99 - Other pulmonary embolism without acute cor pulmonale (7) Asthma Current Visit: Yes Status: Chronic Assessment and plan: Noted to have wheezing and rhonchi. Continue scheduled bronchodilators, supplemental oxygen as needed, inhaled corticosteroids. Qualifiers: Asthma severity: moderate Asthma persistence: persistent Asthma complication type: uncomplicated Qualified Code(s): J45.40 - Moderate persistent asthma, uncomplicated (8) COPD (chronic obstructive pulmonary disease) Current Visit: Yes Status: Chronic Qualifiers: COPD type: unspecified COPD Qualified Code(s): J44.9 - Chronic obstructive pulmonary disease, unspecified (9) Degenerative disc disease Current Visit: Yes Status: Chronic Qualifiers: Spinal region: lumbar Qualified Code(s): M51.36 - Other intervertebral disc degeneration, lumbar region (10) Diabetes mellitus Current Visit: Yes Status: Chronic Assessment and plan: Blood sugars noted to be well controlled. Continue Accu-Chek blood glucose monitoring with sliding scale insulin. Hemoglobin A1c noted to be 5.1%, not on home medications. Qualifiers: Diabetes mellitus type: type 2 Diabetes mellitus complication status: with skin complications Diabetes mellitus complication detail: with other skin complication Diabetes mellitus chcf insulin use: without chcf use Qualified Code(s): E11.628 - Type 2 diabetes mellitus with other skin complications (11) HTN (hypertension) Current Visit: Yes Status: Chronic Qualifiers: Hypertension type: essential hypertension Qualified Code(s): I10 - Essential (primary) hypertension - Subjective Interval history: Feels better; denies new complaints; improved hematuria, improving rash on back ; - Constitutional Vitals: Temp Pulse Resp BP Pulse Ox 97.7 F 112 18 129/62 95 09/12/17 10:53 09/12/17 10:53 09/12/17 10:53 09/12/17 10:53 09/12/17 10:53 General appearance: Present: A&O X 3, answers questions appropriately - Respiratory Respiratory exam: Present: CTAB (coarse breath sounds B/L). Absent: accessory muscle use, rales, rhonchi, wheezes - Cardiovascular Cardiovascular exam: Present: RRR, +S1, +S2. Absent: diastolic murmur, gallop, rubs, systolic murmur - GI/Abdominal GI/Abdominal exam: Present: normal bowel sounds, soft, no peritoneal signs. Absent: distended, tenderness - Neurological Exam Neurological exam: Present: CN II-XII intact, oriented X3, no focal deficits ( decreased motor power B/L LE). Absent: pronater drift, facial droop, speech deficit - Skin Skin exam: Present: dry, intact Additional comments: improving rash over his posterior trunk and buttocks; Internal Medicine: Result - Labs CBC & Chem 7: 09/12/17 04:14 09/12/17 04:14 Labs: Short CBC 09/12/17 Range/Units 04:14 WBC 6.3 (4.3-11.1) K/mcL Hgb 12.1 L (12.9-16.9) g/dL Hct 37.3 L (37.5-50.1) % Plt Count 173 (140-400) K/mcL Neutrophils # 3.5 (1.6-8.9) K/mcL BMP 09/12/17 04:14 Sodium 131 L Potassium 3.8 Chloride 96 L Carbon Dioxide 29 BUN 6 L Creatinine 0.44 L Glucose 109 H Calcium 8.6 - ABG Interpretation ABG results: PT/INR, D-dimer PT 14.3 Seconds (9.4-12.1) H 09/11/17 04:49 Consult Discharge Plan - Plan Referrals: NONE,PCP [Primary Care Provider] -
[2017-09-12] MEDS: *HR* Rivaroxaban 10 MG TABLET PO SCH (17:28)
--- NOTE | 2017-09-12 18:23 | Electrocardiograph Report ---
[place] [id number] Test Date: 2017-09-10 Pat Name: Richmond Masterson Department: 103 Room: 3A12 Gender: M Insole Department Worker: TAYLOR : 1945 Requested By: Kaley Reddy Order Number: [id number] Reading MD: Lian Echeverria Measurements Intervals [place]te Rate: 107 P: [place]: 0 QRS: -69 QRSD: 118 T: 76 QT: 359 QTc: 421 Interpretive Statements SINUS RHYTHM WITH PACs LEFT ANTERIOR FASCICULAR BLOCK [QRS AXIS <= -45, QR IN I, RS IN II] POSSIBLE ANTERIOR MYOCARDIAL INFARCTION [30 ms Q WAVE IN V3/V4, OR R < 0.2 mV IN V4], OF INDETERMINATE AGE INTERPRETATION BASED ON A DEFAULT AGE OF 40 YEARS Electronically Signed On 09-12-2017 18:22:08 EST by Lian Echeverria
[2017-09-12] MEDS: Nystatin POWDER 30 GM BOTTLE TP SCH (22:11)
[2017-09-13] MEDS: Ipratropium/Albuterol Neb 3 ML IH SCH ×4 (03:38→21:08)
[2017-09-13] MEDS: Budesonide Neb 0.5 MG/2 ML IH SCH ×2 (09:06→21:08)
[2017-09-13] MEDS: Fluconazole 100 MG TABLET PO SCH (09:36)
[2017-09-13] MEDS: Levofloxacin 750 MG/150 ML 750 MG/150 ML BAG IVPB SCH (09:36)
[2017-09-13] MEDS: Nystatin POWDER 30 GM BOTTLE TP SCH ×2 (09:38→20:15)
--- NOTE | 2017-09-13 10:19 | Internal Med Progress Note ---
Date of Encounter: 09/13/17 Time of Encounter: 09:15 - Assessment and plan (1) Hematuria Current Visit: Yes Status: Resolved Assessment and plan: likely secondary to trauma during Rojas change at home; currently resolved; Urology consult appreciated- no intervention; Hb stable; social services specialist and case management on board. Patient has difficult social situation due to being bedbound, transportation issues, having no primary care provider for follow-up and prescription refills. He insists on having a PCP with home visits; At this time, home health services discharged the patient due to having no primary care provider. Plan for ECF placement, patient agreeable. Qualifiers: Hematuria type: gross Qualified Code(s): R31.0 - Gross hematuria (2) Hyponatremia Current Visit: Yes Status: Acute Assessment and plan: Likely due to diuretic use. Stable at 131; will restart diuretics; (3) Complicated UTI (urinary tract infection) Current Visit: Yes Status: Acute Assessment and plan: Catheter-associated; Has indwelling Rojas catheter due to urinary retention. Urinalysis shows hematuria, pyuria, large leukocyte esterase. Preliminary urine culture grows Pseudomonas, gram-negative rods, enterococcus. F/up final cultures. Continue IV Levaquin, vancomycin. Urology consult appreciated, recommend treatment at this time, and in the future only for symptomatic infections as patient can have colonization from indwelling Rojas catheter. (4) Fungal rash of torso Current Visit: Yes Status: Acute Assessment and plan: Likely fungal dermatitis. Continue PO Diflucan and topical clotrimazole and Nystatin. Noted to have significant improvement; Follow-up daily EKGs to monitor for prolonged QT- corrected QT 444. Start Telemetry, monitor closely, low threshold to d/c Diflucan; Supportive care. (5) Lumbar pain Current Visit: Yes Status: Chronic Assessment and plan: Does not use chronic pain medications. Supportive care. Fall precautions. Qualifiers: Chronicity: chronic Back pain laterality: unspecified Sciatica presence: unspecified whether sciatica present Qualified Code(s): M54.5 - Low back pain ; G89.29 - Other chronic pain (6) Pulmonary embolism Current Visit: Yes Status: Acute Assessment and plan: Was diagnosed with pulmonary embolism in May 2017, however noted to be noncompliant with most of his medications including anticoagulation with Xarelto , due to having no primary care provider, transportation issues. Restarted Xarelto at this time. Plan for ECF placement. Qualifiers: Pulmonary embolism type: other Chronicity: unspecified Acute cor pulmonale presence: without acute cor pulmonale Qualified Code(s): I26.99 - Other pulmonary embolism without acute cor pulmonale (7) Asthma Current Visit: Yes Status: Chronic Assessment and plan: Noted to have wheezing and rhonchi. Continue scheduled bronchodilators, supplemental oxygen as needed, inhaled corticosteroids. Qualifiers: Asthma severity: moderate Asthma persistence: persistent Asthma complication type: uncomplicated Qualified Code(s): J45.40 - Moderate persistent asthma, uncomplicated (8) COPD (chronic obstructive pulmonary disease) Current Visit: Yes Status: Chronic Qualifiers: COPD type: unspecified COPD Qualified Code(s): J44.9 - Chronic obstructive pulmonary disease, unspecified (9) Degenerative disc disease Current Visit: Yes Status: Chronic Qualifiers: Spinal region: lumbar Qualified Code(s): M51.36 - Other intervertebral disc degeneration, lumbar region (10) Diabetes mellitus Current Visit: Yes Status: Chronic Assessment and plan: Blood sugars noted to be well controlled. Continue Accu-Chek blood glucose monitoring with sliding scale insulin. Hemoglobin A1c noted to be 5.1%, not on home medications. Qualifiers: Diabetes mellitus type: type 2 Diabetes mellitus complication status: with skin complications Diabetes mellitus complication detail: with other skin complication Diabetes mellitus tire layer insulin use: without tire layer use Qualified Code(s): E11.628 - Type 2 diabetes mellitus with other skin complications (11) HTN (hypertension) Current Visit: Yes Status: Chronic Qualifiers: Hypertension type: essential hypertension Qualified Code(s): I10 - Essential (primary) hypertension - Subjective Interval history: Feels short of breath, requests for breathing treatment; no cough, fever, palpitations; awaiting rehab placement; - Constitutional Vitals: Temp Pulse Resp BP Pulse Ox 98.0 F 84 16 142/66 92 09/13/17 06:51 09/13/17 06:51 09/13/17 09:08 09/13/17 06:51 09/13/17 09:08 General appearance: Present: A&O X 3, obese, answers questions appropriately - Respiratory Respiratory exam: Present: CTAB (coarse breath sounds B/L, with scattered rhonchi). Absent: accessory muscle use, rales, rhonchi, wheezes - Cardiovascular Cardiovascular exam: Present: RRR, +S1, +S2. Absent: diastolic murmur, gallop, rubs, systolic murmur - GI/Abdominal GI/Abdominal exam: Present: normal bowel sounds, soft, no peritoneal signs. Absent: distended, tenderness - Skin Skin exam: Present: dry, intact, rash (significantly improved posterior rash/ cellulitis) Internal Medicine: Result - Labs CBC & Chem 7: 09/12/17 04:14 09/12/17 04:14 - ABG Interpretation ABG results: PT/INR, D-dimer PT 14.3 Seconds (9.4-12.1) H 09/11/17 04:49 Consult Discharge Plan - Plan Referrals: NONE,PCP [Primary Care Provider] -
[2017-09-13] MEDS ORDERED: HYDROCHLOROTHIAZIDE PO SCH (10:30)
[2017-09-13] MEDS ORDERED: [UNRECOGNIZED DRUG - OTHER] PO SCH (10:30)
[2017-09-13] MEDS ORDERED: ENALAPRIL PO SCH (10:30)
[2017-09-13] MEDS: hydroCHLOROthiazide 25 MG TABLET PO SCH (12:10)
[2017-09-13] MEDS: *HR* Rivaroxaban 10 MG TABLET PO SCH (16:31)
[2017-09-13] MEDS ORDERED: Aminoglycoside Consult 1 EACH MC ONE (20:01)
[2017-09-14] MEDS: Ipratropium/Albuterol Neb 3 ML IH SCH ×4 (04:41→21:21)
--- NOTE | 2017-09-14 08:49 | Urology Procedure Note ---
Date of Encounter: 09/14/17 Time of Encounter: 08:47 Procedures:Urology - Catheter Insertion (Urinary) Prophylactic antibiotics given: No Bladder Scan/Ultrasound used before catheterization: No Estimated amount of urin (mLs): 1,800 Preparation: Povidone-Iodine Type of catheter inserted: 2 way, coude tip Catheter Danish Size: 18 Topical anesthesia used: Yes (lidocaine jelly) Results: successfully catheterized-immediate flow Urine Appearance: Clear Patient tolerated procedure: well Complications: none Additional comments: pts previous cath stopped draining. nursing staff unable to place as they met resistance. Able to place catheter with assistance of Urojet. minimal resistance. suspect false passage that I was able to navigate around with coude.
[2017-09-14] MEDS: hydroCHLOROthiazide 25 MG TABLET PO SCH (10:01)
[2017-09-14] MEDS: Fluconazole 100 MG TABLET PO SCH (10:01)
[2017-09-14] MEDS: Lactobacillus 1 EACH CAP.SPRINK PO SCH ×2 (10:01→19:45)
[2017-09-14] MEDS: Nystatin POWDER 30 GM BOTTLE TP SCH ×2 (10:02→19:46)
[2017-09-14] MEDS: Levofloxacin 750 MG/150 ML 750 MG/150 ML BAG IVPB SCH (10:02)
[2017-09-14] MEDS: Budesonide Neb 0.5 MG/2 ML IH SCH ×2 (10:47→21:21)
--- NOTE | 2017-09-14 11:02 | Internal Med Progress Note ---
Date of Encounter: 09/14/17 Time of Encounter: 10:00 - Assessment and plan (1) Hematuria Current Visit: Yes Status: Resolved Assessment and plan: likely secondary to trauma during Rojas change at home; currently resolved; Urology consult appreciated- no intervention; Hb stable; environmental services floor tech and case management on board. Patient has difficult social situation due to being bedbound, transportation issues, having no primary care provider for follow-up and prescription refills. He insists on having a PCP with home visits; At this time, home health services discharged the patient due to having no primary care provider. Plan for ECF placement, patient agreeable. 09/14- Patient had a Rojas catheter exchanged by urology today due to retention and previous catheter being clogged. Continue to monitor. Qualifiers: Hematuria type: gross Qualified Code(s): R31.0 - Gross hematuria (2) Hyponatremia Current Visit: Yes Status: Resolved (3) Complicated UTI (urinary tract infection) Current Visit: Yes Status: Acute Assessment and plan: Catheter-associated; Has indwelling Rojas catheter due to urinary retention. Urinalysis shows hematuria, pyuria, large leukocyte esterase. Final urine culture grows Pseudomonas, Escherichia coli, Enterococcus faecalis. Will change antibiotics to IV Zosyn for single drug coverage, and avoid QT prolongation. D/c Levaquin. Urology consult appreciated, recommend treatment at this time, and in the future only for symptomatic infections as patient can have colonization from indwelling Rojas catheter. (4) Fungal rash of torso Current Visit: Yes Status: Acute Assessment and plan: Likely fungal dermatitis. Continue PO Diflucan and topical clotrimazole and Nystatin. Noted to have significant improvement; Supportive care. (5) Lumbar pain Current Visit: Yes Status: Chronic Assessment and plan: Does not use chronic pain medications. Supportive care. Fall precautions. Qualifiers: Chronicity: chronic Back pain laterality: unspecified Sciatica presence: unspecified whether sciatica present Qualified Code(s): M54.5 - Low back pain ; G89.29 - Other chronic pain (6) Pulmonary embolism Current Visit: Yes Status: Acute Assessment and plan: Was diagnosed with pulmonary embolism in May 2017, however noted to be noncompliant with most of his medications including anticoagulation with Xarelto , due to having no primary care provider, transportation issues. Restarted Xarelto. Plan for ECF placement. Qualifiers: Pulmonary embolism type: other Chronicity: unspecified Acute cor pulmonale presence: without acute cor pulmonale Qualified Code(s): I26.99 - Other pulmonary embolism without acute cor pulmonale (7) Asthma Current Visit: Yes Status: Chronic Assessment and plan: Noted to have wheezing and rhonchi. Continue scheduled bronchodilators, supplemental oxygen as needed, inhaled corticosteroids. Qualifiers: Asthma severity: moderate Asthma persistence: persistent Asthma complication type: uncomplicated Qualified Code(s): J45.40 - Moderate persistent asthma, uncomplicated (8) COPD (chronic obstructive pulmonary disease) Current Visit: Yes Status: Chronic Qualifiers: COPD type: unspecified COPD Qualified Code(s): J44.9 - Chronic obstructive pulmonary disease, unspecified (9) Degenerative disc disease Current Visit: Yes Status: Chronic Qualifiers: Spinal region: lumbar Qualified Code(s): M51.36 - Other intervertebral disc degeneration, lumbar region (10) Diabetes mellitus Current Visit: Yes Status: Chronic Assessment and plan: Blood sugars noted to be well controlled. Continue Accu-Chek blood glucose monitoring with sliding scale insulin. Hemoglobin A1c noted to be 5.1%, not on home medications. 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 Improved shortness of breath. Patient had urinary retention this morning, nursing staff could not replace Rojas catheter due to resistance, patient had catheter replaced by urology, now draining well, no hematuria. - Constitutional Vitals: Temp Pulse Resp BP Pulse Ox 98.6 F 108 22 186/96 90 09/14/17 08:15 09/14/17 08:15 09/14/17 10:47 09/14/17 03:43 09/14/17 10:47 General appearance: Present: A&O X 3, obese, answers questions appropriately - Respiratory Respiratory exam: Present: CTAB. Absent: accessory muscle use, rales, rhonchi, wheezes - Cardiovascular Cardiovascular exam: Present: RRR, +S1, +S2. Absent: diastolic murmur, gallop, rubs, systolic murmur - GI/Abdominal GI/Abdominal exam: Present: normal bowel sounds, soft (Obese), no peritoneal signs. Absent: distended, tenderness - Extremities Exam Extremities exam: Present: pedal edema, warm, radial pulses palpable and symmetrical. Absent: calf tenderness, cyanotic - Neurological Exam Neurological exam: Present: CN II-XII intact, oriented X3, no focal deficits ( Decreased motor power in bilateral lower extremities). Absent: pronater drift, facial droop, speech deficit Internal Medicine: Result - Labs CBC & Chem 7: 09/12/17 04:14 09/12/17 04:14 - ABG Interpretation ABG results: PT/INR, D-dimer PT 14.3 Seconds (9.4-12.1) H 09/11/17 04:49 Consult Discharge Plan - Plan Referrals: NONE,PCP [Primary Care Provider] -
[2017-09-14] MEDS: Piperacillin/Tazobactam 3.375 GM in 0.9 % Sodium Chloride Mini Bag 100 ML IVPB SCH ×2 (11:43→17:44)
[2017-09-14] MEDS ORDERED: Ampicillin 1,000 MG in 0.9 % Sodium Chloride Mini Bag 100 ML IVPB SCH (12:00)
[2017-09-14] MEDS: *HR* Rivaroxaban 10 MG TABLET PO SCH (17:46)
[2017-09-15] MEDS: Piperacillin/Tazobactam 3.375 GM in 0.9 % Sodium Chloride Mini Bag 100 ML IVPB SCH ×3 (02:16→17:52)
[2017-09-15] MEDS: Ipratropium/Albuterol Neb 3 ML IH SCH ×4 (04:16→21:58)
[2017-09-15] MEDS: Nystatin POWDER 30 GM BOTTLE TP SCH ×2 (09:40→21:01)
[2017-09-15] MEDS: Lactobacillus 1 EACH CAP.SPRINK PO SCH ×2 (09:40→21:00)
[2017-09-15] MEDS: hydroCHLOROthiazide 25 MG TABLET PO SCH (09:40)
[2017-09-15] MEDS: Fluconazole 100 MG TABLET PO SCH (09:40)
[2017-09-15] MEDS: Budesonide Neb 0.5 MG/2 ML IH SCH ×2 (10:43→21:58)
--- NOTE | 2017-09-15 13:53 | Internal Med Progress Note ---
Date of Encounter: 09/15/17 Time of Encounter: 10:00 - Assessment and plan (1) Hematuria Current Visit: Yes Status: Resolved Assessment and plan: likely secondary to trauma during Rojas change at home; currently resolved; Urology consult appreciated- no intervention; Hb stable; patient had a clogged Rojas catheter which was replaced by Urology on 09/14. director of housing and energy services and case management on board. Patient has difficult social situation due to being bedbound, transportation issues, having no primary care provider for follow-up and prescription refills. He insists on having a PCP with home visits; At this time, home health services discharged the patient due to having no primary care provider. Plan for ECF placement, patient agreeable. Qualifiers: Hematuria type: gross Qualified Code(s): R31.0 - Gross hematuria (2) Hyponatremia Current Visit: Yes Status: Resolved (3) Complicated UTI (urinary tract infection) Current Visit: Yes Status: Acute Assessment and plan: Catheter-associated; Has indwelling Rojas catheter due to urinary retention. Urinalysis shows hematuria, pyuria, large leukocyte esterase. Final urine culture grows Pseudomonas, Escherichia coli, Enterococcus faecalis, continue IV Zosyn- day 5 of antibiotics; Urology consult appreciated, recommend treatment at this time, and in the future only for symptomatic infections as patient can have colonization from indwelling Rojas catheter. (4) Fungal rash of torso Current Visit: Yes Status: Acute Assessment and plan: Likely fungal dermatitis with bacterial superinfection. Continue PO Diflucan and topical clotrimazole and Nystatin, IV Zosyn. Noted to have significant improvement; Supportive care. Wound care consulted for back and leg rash; (5) Lumbar pain Current Visit: Yes Status: Chronic Qualifiers: Chronicity: chronic Back pain laterality: unspecified Sciatica presence: unspecified whether sciatica present Qualified Code(s): M54.5 - Low back pain ; G89.29 - Other chronic pain (6) Pulmonary embolism Current Visit: Yes Status: Acute Assessment and plan: Was diagnosed with pulmonary embolism in May 2017, however noted to be noncompliant with most of his medications including anticoagulation with Xarelto , due to having no primary care provider, transportation issues. Restarted Xarelto. Plan for ECF placement. Qualifiers: Pulmonary embolism type: other Chronicity: unspecified Acute cor pulmonale presence: without acute cor pulmonale Qualified Code(s): I26.99 - Other pulmonary embolism without acute cor pulmonale (7) Asthma Current Visit: Yes Status: Chronic Assessment and plan: Noted to have wheezing and rhonchi. Continue scheduled bronchodilators, supplemental oxygen as needed, inhaled corticosteroids. Qualifiers: Asthma severity: moderate Asthma persistence: persistent Asthma complication type: uncomplicated Qualified Code(s): J45.40 - Moderate persistent asthma, uncomplicated (8) COPD (chronic obstructive pulmonary disease) Current Visit: Yes Status: Chronic Qualifiers: COPD type: unspecified COPD Qualified Code(s): J44.9 - Chronic obstructive pulmonary disease, unspecified (9) Degenerative disc disease Current Visit: Yes Status: Chronic Qualifiers: Spinal region: lumbar Qualified Code(s): M51.36 - Other intervertebral disc degeneration, lumbar region (10) Diabetes mellitus Current Visit: Yes Status: Chronic Assessment and plan: Blood sugars noted to be well controlled. Continue Accu-Chek blood glucose monitoring with sliding scale insulin. Hemoglobin A1c noted to be 5.1%, not on home medications. Qualifiers: Diabetes mellitus type: type 2 Diabetes mellitus complication status: with skin complications Diabetes mellitus complication detail: with other skin complication Diabetes mellitus longterm insulin use: without laborer marine terminal use Qualified Code(s): E11.628 - Type 2 diabetes mellitus with other skin complications (11) HTN (hypertension) Current Visit: Yes Status: Chronic Qualifiers: Hypertension type: essential hypertension Qualified Code(s): I10 - Essential (primary) hypertension - Subjective Interval history: 71-year-old male with multiple medical problems including chronic indwelling Rojas catheter, poor outpatient medical follow-up, was admitted with UTI, hematuria along with fungal infection of his posterior trunk and buttocks with bacterial superinfection. Patient was seen by urology, recommended no intervention, continue chronic Rojas catheter, hematuria resolved now. He was started on broad-spectrum IV antibiotics and Diflucan for fungal infection. Blood cultures remain negative. Urine culture eventually grew Pseudomonas, Escherichia coli, Enterococcus faecalis, on IV Zosyn. Plan to treat with 14 days of antibiotics, limit antibiotics only to symptomatic UTIs in the future. Patient was seen by social work case manager and nurse case manager, patient requesting for PCP that makes home visits, which cannot be urgently arranged at this time. Home health services discharged him due to no PCP, family cannot care for him without home health services. Hence, patient needs ECF placement at this time. 09/15- Reports itching in lower back and right leg; also noted to have dry scaly skin in B/L lower legs; No chest pain, dyspnea, cough; awaiting rehab placement; - Constitutional Vitals: Temp Pulse Resp BP Pulse Ox 97.8 F 100 15 135/83 93 09/15/17 11:43 09/15/17 11:43 09/15/17 11:43 09/15/17 11:43 09/15/17 11:43 General appearance: Present: A&O X 3, obese, answers questions appropriately - Respiratory Respiratory exam: Present: CTAB. Absent: accessory muscle use, rales, rhonchi, wheezes - Cardiovascular Cardiovascular exam: Present: RRR, +S1, +S2. Absent: diastolic murmur, gallop, rubs, systolic murmur - Extremities Exam Extremities exam: Present: pedal edema, warm, radial pulses palpable and symmetrical. Absent: calf tenderness, cyanotic Additional comments: B/L dry flaky skin over lower legs - Skin Skin exam: Present: dry, intact Additional comments: erythematous skin over entire posterior trunk, back and buttocks- much improved since admission Internal Medicine: Result - Labs CBC & Chem 7: 09/12/17 04:14 09/12/17 04:14 - ABG Interpretation ABG results: PT/INR, D-dimer PT 14.3 Seconds (9.4-12.1) H 09/11/17 04:49 Consult Discharge Plan - Plan Referrals: NONE,PCP [Primary Care Provider] -
[2017-09-15] MEDS: *HR* Rivaroxaban 10 MG TABLET PO SCH (17:52)
[2017-09-15] MEDS: Miconazole 2% ointment 114 GM TUBE TP SCH ×2 (17:53→21:02)
[2017-09-16] MEDS: Piperacillin/Tazobactam 3.375 GM in 0.9 % Sodium Chloride Mini Bag 100 ML IVPB SCH ×3 (03:40→19:16)
[2017-09-16] MEDS: Ipratropium/Albuterol Neb 3 ML IH SCH ×4 (04:21→21:54)
[2017-09-16] MEDS: Budesonide Neb 0.5 MG/2 ML IH SCH ×3 (09:56→22:03)
[2017-09-16] MEDS: Nystatin POWDER 30 GM BOTTLE TP SCH (10:21)
[2017-09-16] MEDS: Fluconazole 100 MG TABLET PO SCH (10:22)
[2017-09-16] MEDS: Lactobacillus 1 EACH CAP.SPRINK PO SCH (10:22)
[2017-09-16] MEDS: hydroCHLOROthiazide 25 MG TABLET PO SCH (10:22)
[2017-09-16] MEDS: Miconazole 2% ointment 114 GM TUBE TP SCH (10:23)
--- NOTE | 2017-09-16 12:23 | Internal Med Progress Note ---
Date of Encounter: 09/16/17 Time of Encounter: 17:48 - Assessment and plan (1) Hematuria Current Visit: Yes Status: Resolved Assessment and plan: Resolved with no further episodes. Urology consulted; appreciate input - moyer catheter replaced on 09/14/17 with no further interventions recommended. Hemoglobin stable. Discussed case with case management today. Patient with difficult home situation with not being able to care for him. He is not interested in any PT/OT, making it difficult for ECF placement. Cannot get home health because he does not have PCP; he states that he can only have PCP that does home visits. Trying to find such new PCP. He is agreeable to ECF placement, so will try to get placement with IV antibiotic need. Qualifiers: Hematuria type: gross Qualified Code(s): R31.0 - Gross hematuria (2) Hyponatremia Current Visit: Yes Status: Resolved (3) Complicated UTI (urinary tract infection) Current Visit: Yes Status: Acute Assessment and plan: Catheter-associated UTI. Continue indwelling moyer for urinary retention; new moyer placed by urology on 09/14/17. Final culture grew Pseudomonas, E. coli, and Enterococcus faecalis. Continue IV zosyn (day 6). Urology recommends completed antibiotic course at present time, then only treating symptomatic infections in the future as he is likely colonized. (4) Fungal rash of torso Current Visit: Yes Status: Acute Assessment and plan: Likely fungal dermatitis with bacterial superinfection. Continue topical clotrimazole and nystatin; PO diflucan; and IV zosyn. Subjective improvement per patient. Wound care consulted. Will monitor for continued improvement. (5) Pulmonary embolism Current Visit: Yes Status: Chronic Assessment and plan: Xarelto restarted yesterday and tolerating without any bleeding. Continue xarelto. Qualifiers: Pulmonary embolism type: other Chronicity: unspecified Acute cor pulmonale presence: without acute cor pulmonale Qualified Code(s): I26.99 - Other pulmonary embolism without acute cor pulmonale (6) Lumbar pain Current Visit: Yes Status: Chronic Assessment and plan: Not interested in pain control to help facilitate ambulation and PT/OT. Will start Tylenol PRN. Qualifiers: Chronicity: chronic Back pain laterality: unspecified Sciatica presence: unspecified whether sciatica present Qualified Code(s): M54.5 - Low back pain ; G89.29 - Other chronic pain; G89.29 - Other chronic pain (7) HTN (hypertension) Current Visit: Yes Status: Chronic Assessment and plan: Stable. Continue current regimen. Qualifiers: Hypertension type: essential hypertension Qualified Code(s): I10 - Essential (primary) hypertension (8) Diabetes mellitus Current Visit: Yes Status: Chronic Assessment and plan: Well-controlled blood glucose. Continue accuchecks and SSI. 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 Continue breathing treatments. Qualifiers: COPD type: unspecified COPD Qualified Code(s): J44.9 - Chronic obstructive pulmonary disease, unspecified (10) Asthma Current Visit: Yes Status: Chronic Assessment and plan: Continue breathing treatments as per above. Qualifiers: Asthma severity: moderate Asthma persistence: persistent Asthma complication type: uncomplicated Qualified Code(s): J45.40 - Moderate persistent asthma, uncomplicated (11) Degenerative disc disease Current Visit: Yes Status: Chronic Assessment and plan: Not interested in pain control or PT/OT. Start Tylenol PRN as per above. Qualifiers: Spinal region: lumbar Qualified Code(s): M51.36 - Other intervertebral disc degeneration, lumbar region - Time Spent With Patient less than 15 minutes - Subjective Interval history: Patient had no acute events overnight. He states that he is doing OK this AM. His only complaint remains itchy back rash. He has no new complaints. We discussed ambulation with pain control, but he is not interested. - Constitutional Vitals: Temp Pulse Resp BP Pulse Ox 97.9 F 89 15 138/78 93 09/16/17 10:52 09/16/17 10:52 09/16/17 10:52 09/16/17 10:52 09/16/17 10:52 General appearance: Present: A&O X 3, obese, answers questions appropriately - Respiratory Respiratory exam: Present: CTAB. Absent: accessory muscle use, rales, rhonchi, wheezes Additional comments: Normal WOB - Cardiovascular Cardiovascular exam: Present: RRR. Absent: diastolic murmur, gallop, rubs, systolic murmur Additional comments: Trace BLE edema - GI/Abdominal GI/Abdominal exam: Present: soft. Absent: distended, hepatomegaly, mass, splenomegaly, tenderness - Psychiatric Psychiatric exam: Present: normal affect, normal mood. Absent: anxious, depressed - Skin Skin exam: Present: dry, rash, warm Additional comments: Erythematous skin over back and buttocks. Dry, flaky skin over BLE. Internal Medicine: Result - Labs CBC & Chem 7: 09/12/17 04:14 09/12/17 04:14 - ABG Interpretation ABG results: PT/INR, D-dimer PT 14.3 Seconds (9.4-12.1) H 09/11/17 04:49 - VTE Contraindication No Overlap Therapy: Admin of oral Factor Xa Inhibitor Consult Discharge Plan - Plan Referrals: NONE,PCP [Primary Care Provider] - (Discharge to [facility]. No appointment necessary.)
--- NOTE | 2017-09-16 17:36 | Electrocardiograph Report ---
[address] [address] Test Date: 2017-09-12 Pat Name: Richmond Masterson Department: 115 Room: 3A12 Gender: Male First Assist: : 1945 Requested By: Brittney Reddy Order Number: [id number] Reading MD: David Echeverria Measurements Intervals [place] Rate: 104 P: 81 KS: 241 QRS: -48 QRSD: 118 T: 48 QT: 357 QTc: 417 Interpretive Statements SINUS TACHYCARDIA WITH FIRST DEGREE AV BLOCK WITH OCCASIONAL SUPRAVENTRICULAR PREMATURE COMPLEXES PATTERN CONSISTENT WITH PULMONARY DISEASE LEFT ANTERIOR FASCICULAR BLOCK Electronically Signed On 09-16-2017 17:34:38 EST by David Echeverria
--- NOTE | 2017-09-16 18:13 | Electrocardiograph Report ---
[address] [place], [place] [address] Test Date: 2017-09-13 Pat Name: Richmond Masterson Department: 115 Room: 3A12 Gender: M Patent Lawyer: : 1945 Requested By: Kaley Reddy Order Number: [id number] Reading MD: David Echeverria Measurements Intervals [place] Rate: 99 P: AR: 0 QRS: -60 QRSD: 116 T: 53 QT: 388 QTc: 444 Interpretive Statements SINUS RHYTHM WITH SINUS ARRYTHMIA AND PACS LEFT ANTERIOR FASCICULAR BLOCK POSSIBLE ANTERIOR MYOCARDIAL INFARCTION, OF INDETERMINATE AGE Electronically Signed On 09-16-2017 18:11:57 EST by David Echeverria
[2017-09-16] MEDS: Acetaminophen 325 MG TABLET PO SCH (19:17)
[2017-09-16] MEDS: *HR* Rivaroxaban 10 MG TABLET PO SCH (19:17)
[2017-09-17] MEDS: Acetaminophen 325 MG TABLET PO SCH ×4 (02:26→17:58)
[2017-09-17] MEDS: Nystatin POWDER 30 GM BOTTLE TP SCH ×2 (02:27→10:11)
[2017-09-17] MEDS: Lactobacillus 1 EACH CAP.SPRINK PO SCH ×2 (02:27→10:11)
[2017-09-17] MEDS: Piperacillin/Tazobactam 3.375 GM in 0.9 % Sodium Chloride Mini Bag 100 ML IVPB SCH ×3 (02:27→17:57)
[2017-09-17] MEDS: Miconazole 2% ointment 114 GM TUBE TP SCH ×2 (02:27→10:11)
[2017-09-17] MEDS: Ipratropium/Albuterol Neb 3 ML IH SCH ×3 (03:57→15:25)
[2017-09-17] MEDS: Fluconazole 100 MG TABLET PO SCH (10:11)
[2017-09-17] MEDS: hydroCHLOROthiazide 25 MG TABLET PO SCH (10:11)
[2017-09-17] MEDS: Budesonide Neb 0.5 MG/2 ML IH SCH (11:22)
--- NOTE | 2017-09-17 15:12 | Physician Discharge Referral ---
ExtendedCare Referral Info Transfer To: [facility] Provider in Charge after Transfer: PCP Institutional Level of Care: Skilled - Diagnosis (1) Hematuria Priority: Secondary Status: Resolved (2) Hyponatremia Priority: Secondary Status: Resolved (3) Complicated UTI (urinary tract infection) Priority: Primary Status: Acute (4) Fungal rash of torso Priority: Secondary Status: Acute (5) Pulmonary embolism Priority: Secondary Status: Chronic (6) Lumbar pain Priority: Secondary Status: Chronic (7) HTN (hypertension) Priority: Secondary Status: Chronic (8) Diabetes mellitus Priority: Secondary Status: Chronic (9) COPD (chronic obstructive pulmonary disease) Priority: Secondary Status: Chronic (10) Asthma Priority: Secondary Status: Chronic (11) Degenerative disc disease Priority: Secondary Status: Chronic Expected Duration of Placement: Indefinitely Prognosis: Fair Aware of Diagnosis: Patient Aware of Prognosis: Patient - Transfer Medications Prescriptions: Utnhhlhdqote-Lyhu-Vpbjtweu,Iso [Zosyn 3.375 gm/50 ml Galaxy] 3.375 gm IV Q6HR 10 Days #40 froz.[email or web address] Home Medications: Albuterol Neb [Proventil Neb] 2.5 mg IH TID PRN 02/26/17 [History] Albuterol Sulfate [Ventolin Hfa] 2 puff IH Q4H PRN 02/26/17 [History] Budesonide Neb [Pulmicort Neb] 0.5 mg IH BID 02/26/17 [History] Enalapril/Hydrochlorothiazide [Vaseretic 10-25 mg Tablet] 1 tab PO BID 02/26/17 [History] Formoterol Fumarate [Perforomist] 20 mcg IH BID 02/26/17 [History] Simvastatin [Zocor] 40 mg PO HS 02/26/17 [History] Atenolol [Tenormin] 50 mg PO BID 09/11/17 [History] Acetaminophen [Tylenol] 650 mg PO Q6HR tablet 09/17/17 [Rx] Fluconazole [Diflucan] 100 mg PO DAILY 6 Days #6 tablet 09/17/17 [Rx] Miconazole 2% ointment [Aloe [place] Antifungal Ointment] 1 appl TP BID 6 Days #1 tube 09/17/17 [Rx] Nystatin POWDER [Nystop] 1 appl TP BID 6 Days #1 bottle 09/17/17 [Rx] Ppavewtzlzap-Qtoh-Nfuovheq,Iso [Zosyn 3.375 gm/50 ml Galaxy] 3.375 gm IV Q6HR 10 Days #40 frokamalapiggy 09/17/17 [Rx] Rivaroxaban [Xarelto] 20 mg PO 1700 tablet 09/17/17 [Rx] Allergies/Adverse Reactions: 3 Allergy/AdvReac Type Severity Reaction Status Date / Time No Known Allergies Allergy Verified 07/01/17 14:59 - Respiratory Orders Smoking Cessation: Smoking cessation has been advised. For more information, call the [place] Tobacco Quit Line at 0-957-XDDC-NOW. - Advance Directives Code Status: Full Code - Mobility Orders Bedrest - Rehabiliation Orders Rehab Potential: Poor - Diet Orders Regular CERTIFICATION: I certify that the transfer of the above named patient to an Extended Care Facility is necessary for the continuing treatment of the diagnosis listed. The above information is true and accurate reflection of patient's current condition. Confidential - Redisclosure prohibited without a patient's written consent.
--- NOTE | 2017-09-17 15:21 | Discharge Summary ---
Date of Encounter: 09/17/17 Time of Encounter: 15:19 - Discharge Diagnosis (1) Hematuria Priority: Secondary Status: Resolved Qualifiers: Hematuria type: gross Qualified Code(s): R31.0 - Gross hematuria (2) Hyponatremia Priority: Secondary Status: Resolved (3) Complicated UTI (urinary tract infection) Priority: Primary Status: Acute (4) Fungal rash of torso Priority: Secondary Status: Acute (5) Pulmonary embolism Priority: Secondary Status: Chronic Qualifiers: Pulmonary embolism type: other Chronicity: unspecified Acute cor pulmonale presence: without acute cor pulmonale Qualified Code(s): I26.99 - Other pulmonary embolism without acute cor pulmonale (6) Lumbar pain Priority: Secondary Status: Chronic Qualifiers: Chronicity: chronic Back pain laterality: unspecified Sciatica presence: unspecified whether sciatica present Qualified Code(s): M54.5 - Low back pain ; G89.29 - Other chronic pain; G89.29 - Other chronic pain (7) HTN (hypertension) Priority: Secondary Status: Chronic Qualifiers: Hypertension type: essential hypertension Qualified Code(s): I10 - Essential (primary) hypertension (8) Diabetes mellitus Priority: Secondary Status: Chronic Qualifiers: Diabetes mellitus type: type 2 Diabetes mellitus complication status: with skin complications Diabetes mellitus complication detail: with other skin complication Diabetes mellitus middle or intermediate school principal insulin use: without correction use Qualified Code(s): E11.628 - Type 2 diabetes mellitus with other skin complications (9) COPD (chronic obstructive pulmonary disease) Priority: Secondary Status: Chronic Qualifiers: COPD type: unspecified COPD Qualified Code(s): J44.9 - Chronic obstructive pulmonary disease, unspecified (10) Asthma Priority: Secondary Status: Chronic Qualifiers: Asthma severity: moderate Asthma persistence: persistent Asthma complication type: uncomplicated Qualified Code(s): J45.40 - Moderate persistent asthma, uncomplicated (11) Degenerative disc disease Priority: Secondary Status: Chronic Qualifiers: Spinal region: lumbar Qualified Code(s): M51.36 - Other intervertebral disc degeneration, lumbar region Hospital course: Mr. Masterson is a 71 year old male who was admitted for hematuria. Urology was consulted and moyer catheter replaced on 09/14/17 with no further interventions recommended. Hematuria resolved and hemoglobin stablized. He has hyponatremia which resolved. He has catheter-associated UTI with urine culture that grew out Pseudomonas, E. coli, and Enterococcus faecalis. He was treated with IV zosyn and will complete 14 day course at discharge. Urology recommended only treating symptomatic infections in the future as he is likely colonized. He had a rash on back and buttocks that was likely fungal dermatitis with superimposed bacterial infection. He was treated with PO fluconazole, and topical miconazole and nystatin. He will complete full 14 days of these at discharge. He was restarted on xarelto for chronic pulmonary embolism. He is bedbound due to arthritis and not interested in pain control or PT/OT. He was accepted at [facility] for LTC. Patient has met maximum benefit of this hospitalization and will be discharged to [facility] in stable condition. Discharge discussed with: patient, nurse, case management - Time Spent with Patient Total time spent providing and/or coordinating discharge services: Greater than 30 minutes - Discharge Medications Prescriptions: Wrurnyjhtwxf-Utyv-Qclyelav,Iso [Zosyn 3.375 gm/50 ml Galaxy] 3.375 gm IV Q6HR 10 Days #40 [email or web address] Home Medications: Albuterol Neb [Proventil Neb] 2.5 mg IH TID PRN 02/26/17 [History] Albuterol Sulfate [Ventolin Hfa] 2 puff IH Q4H PRN 02/26/17 [History] Budesonide Neb [Pulmicort Neb] 0.5 mg IH BID 02/26/17 [History] Enalapril/Hydrochlorothiazide [Vaseretic 10-25 mg Tablet] 1 tab PO BID 02/26/17 [History] Formoterol Fumarate [Perforomist] 20 mcg IH BID 02/26/17 [History] Simvastatin [Zocor] 40 mg PO HS 02/26/17 [History] Atenolol [Tenormin] 50 mg PO BID 09/11/17 [History] Acetaminophen [Tylenol] 650 mg PO Q6HR tablet 09/17/17 [Rx] Fluconazole [Diflucan] 100 mg PO DAILY 6 Days #6 tablet 09/17/17 [Rx] Miconazole 2% ointment [[place] Antifungal Ointment] 1 appl TP BID 6 Days #1 tube 09/17/17 [Rx] Nystatin POWDER [Nystop] 1 appl TP BID 6 Days #1 bottle 09/17/17 [Rx] Wdjsbkurrboc-Yqph-Epktlgpl,Iso [Zosyn 3.375 gm/50 ml Galaxy] 3.375 gm IV Q6HR 10 Days #40 courtney 09/17/17 [Rx] Rivaroxaban [Xarelto] 20 mg PO 1700 tablet 09/17/17 [Rx] Allergies/Adverse Reactions: 3 Allergy/AdvReac Type Severity Reaction Status Date / Time No Known Allergies Allergy Verified 07/01/17 14:59 Date of admission: 09/10/17 20:00 Primary care physician: PCP NONE Consults: 09/10/17 22:19 Consult to Urology [CONS] Routine Consulting Provider: Urology Benedict Reason for Consult: Urethral trauma and no OP f/u after chronic moyer placed in MAY 2017. Time Notified: 22:57 Call Completed: Yes 09/12/17 07:35 Consult to Occupational Therapy [CONS] Routine Comment: Evaluate, develop and implement POC Reason for Consult: placement in correction care Consult to Physical Therapy [CONS] Routine Comment: Evaluate, develop and implement POC Reason for Consult: placement in correction care 09/14/17 13:21 Consult to Wound Care [CONS] Stat Reason for Consult: Bilateral lower extremeties fungal infection Call Completed: No 09/17/17 14:19 Consult to Invasive Line Access Team [CONS] Stat Reason for Consult: Midline placement for IV antibiotics Line Type: Midline Time Notified: 13:45 Call Completed: Yes Discharging clinician: Nahid Maki Anticipated date of discharge: 09/17/17 - Constitutional Vitals: Temp Pulse Resp BP Pulse Ox 97.4 F L 69 18 149/70 93 09/17/17 10:15 09/17/17 10:15 09/17/17 10:15 09/17/17 10:15 09/17/17 10:15 General appearance: Present: A&O X 3, obese, answers questions appropriately - Respiratory Respiratory exam: Present: CTAB. Absent: accessory muscle use, rales, rhonchi, wheezes Additional comments: Normal WOB - Cardiovascular Cardiovascular exam: Present: RRR, +S1, +S2. Absent: diastolic murmur, gallop, rubs, systolic murmur Additional comments: Trace BLE edema - GI/Abdominal GI/Abdominal exam: Present: normal bowel sounds, soft. Absent: distended, hepatomegaly, mass, splenomegaly, tenderness - Psychiatric Psychiatric exam: Present: normal affect, normal mood. Absent: anxious, depressed - Skin Skin exam: Present: dry, rash, warm. Absent: cyanosis Additional comments: Erythematous skin over back and buttocks. Dry, flaky skin over BLE. - Patient Status Disposition: Transfer LTC Condition: Good Functional capacity at discharge: bed bound Overall status at discharge: patient is back to baseline - Discharge Instructions Follow Up With: NONE,PCP [Primary Care Provider] - (Discharge to [facility]. No appointment necessary.) - Diet and Activity Activity: resume usual activities as tolerated Diet: regular diet - VTE Contraindication No Overlap Therapy: Admin of oral Factor Xa Inhibitor
[2017-09-17] MEDS: *HR* Rivaroxaban 10 MG TABLET PO SCH (17:58)
[2017-09-17 18:54] VITALS: BP 159/74
== END 2017-09-17 19:07 ==
LOC: EMEROO 17:31 → 3ANU 17:31
PROVIDERS: ADMIT Pediatrics; ATTEND Internal Medicine